=== PATIENT | male | born 1930 | race Caucasian/White ===

== ENCOUNTER 2016-08-14 15:12 | Observation (INO) ==
[2016-08-14 16:14] VITALS: BMI 25.4
[2016-08-14] MEDS ORDERED: PROAIR HFA IH PRN (17:02)
[2016-08-14] MEDS ORDERED: SYMBICORT 160-4.5 MCG INHALER IH PRN (17:02)
[2016-08-14 17:31] LABS: BASOPHILS % (AUTO) 0.2 % (0.0-3.0); EOSINOPHILS # (AUTO) 0.1 K/ul (0.0-0.7); HEMATOCRIT 40.2 % (42.0-52.0); HEMOGLOBIN 13.3 g/dl (14.0-18.0); IMMATURE GRANULOCYTE % (AUTO) 0.3 % (0.0-5.0); MEAN CORPUSCULAR HGB CONC 33.1 (31.8-35.4); MEAN CORPUSCULAR VOLUME 90.5 fl (80.0-94.0); MONOCYTES # (AUTO) 1.1 K/uL (0.4-2.0); NEUTROPHILS # (AUTO) 7.6 K/ul (2.0-6.9); NEUTROPHILS % (AUTO) 77.5; PLATELET COUNT 222 10^3/uL (140-440); RED BLOOD COUNT 4.44 10^6/ul (4.70-6.10)
[2016-08-14 17:45] LABS: ABG BASE EXCESS -3 (-2.0-2.0); ABG HCO3 21.6 (22.0-26.0); ABG PCO2 32.3 mmHg (35-45); ABG PH 7.434 (7.35-7.45); ABG TCO2 23 (22.0-28.0)
[2016-08-14 17:53] LABS: BILIRUBIN,URINE Negative (NEGATIVE); KETONES,URINE Negative (NEGATIVE); LEUKOCYTE ESTERASE ,URINE Trace (NEGATIVE); NITRITE,URINE Negative (NEGATIVE); PH,URINE 5.5 (5-9); PROTEIN,URINE 3+ (NEGATIVE); URINE, BLOOD Trace-lysed (NEGATIVE)
[2016-08-14] MEDS ORDERED: XOPENEX 0.63 MG NEB ONE ×2 (17:54→22:07)
[2016-08-14 17:55] LABS: ALBUMIN 3.4 g/dL (3.4-5.0); ANION GAP 12.8; BILIRUBIN,TOTAL 0.5 mg/dL (0.00-1.20); BUN/CREATININE RATIO 19.54; CREATININE 1.33 mg/dL (0.60-1.10); POTASSIUM 3.8 mmol/L (3.5-5.1); TOTAL PROTEIN 6.8 g/dL (5.8-8.1)
[2016-08-14 17:55] LABS: ADD URINE MICROSCOPIC YES
[2016-08-14] MEDS: XOPENEX 0.63 MG NEB SCH ×2 (18:06→23:44)
[2016-08-14] MEDS ORDERED: XOPENEX 1.25 MG NEB ONE (18:06)
[2016-08-14] MEDS: ROCEPHIN 1 GM in SODIUM CHLORIDE 50 ML IV SCH (18:42)
[2016-08-14] MEDS: MUCINEX PO SCH (20:47)
[2016-08-14] MEDS ORDERED: XOPENEX 0.63 MG NEB SCH (21:00)
[2016-08-14] MEDS ORDERED: CARDIZEM CD PO SCH (21:00)
[2016-08-14] MEDS ORDERED: FLOMAX PO SCH (21:08)
[2016-08-14] MEDS ORDERED: CARDIZEM PO STA (21:12)
[2016-08-14] MEDS ORDERED: FLOMAX PO STA (21:12)
[2016-08-14] MEDS: SOLU-CORTEF 250 MG IVP SCH ×2 (21:29→21:31)
[2016-08-15] MEDS ORDERED: XOPENEX 0.63 MG NEB ONE (01:50)
[2016-08-15] MEDS: XOPENEX 0.63 MG NEB SCH (04:53)
[2016-08-15] MEDS: SOLU-CORTEF 250 MG IVP SCH ×3 (05:02→21:18)
[2016-08-15 05:18] LABS: BASOPHILS % (AUTO) 0.1 % (0.0-3.0); HEMATOCRIT 39.5 % (42.0-52.0); HEMOGLOBIN 13.2 g/dl (14.0-18.0); IMMATURE GRANULOCYTE % (AUTO) 0.5 % (0.0-5.0); LYMPHOCYTES # (AUTO) 0.6 K/uL (0.60-3.4); LYMPHOCYTES % (AUTO) 6.5 (10.0-50.0); MEAN CORPUSCULAR HEMOGLOBIN 29.9 pg (27.0-31.0); MEAN CORPUSCULAR HGB CONC 33.4 (31.8-35.4); MEAN CORPUSCULAR VOLUME 89.6 fl (80.0-94.0); MONOCYTES # (AUTO) 0.2 K/uL (0.4-2.0); MONOCYTES % (AUTO) 2.5 (0-10); NEUTROPHILS # (AUTO) 7.6 K/ul (2.0-6.9); NEUTROPHILS % (AUTO) 90.4; PLATELET COUNT 225 10^3/uL (140-440); RED BLOOD COUNT 4.41 10^6/ul (4.70-6.10)
[2016-08-15 05:43] LABS: ALBUMIN 3.2 g/dL (3.4-5.0); ALBUMIN/GLOBULIN RATIO 1.03; ANION GAP 13.9; BILIRUBIN,TOTAL 0.63 mg/dL (0.00-1.20); BUN/CREATININE RATIO 18.25; CALCIUM 9.1 mg/dL (8.2-10.2); CREATININE 1.26 mg/dL (0.60-1.10); POTASSIUM 3.9 mmol/L (3.5-5.1); TOTAL PROTEIN 6.3 g/dL (5.8-8.1)
--- NOTE | 2016-08-15 07:45 | DI ---
EXAM: PA and lateral views of the chest HISTORY: Cough. COMPARISON: Chest x-ray 03/25/2016 FINDINGS: The cardiomediastinal silhouette is unchanged with stable lead wires. There is no pneumo thorax or pleural effusion. There is no consolidation, nodule or mass. There is minimal small airwa ys thickening in the lower lobes. Lungs are hyperinflated with mild flattening of the diaphragm. Th e osseous structures demonstrate anterior disc osteophyte formation with stable compression deformit y of lower thoracic/upper lumbar spine vertebral body. IMPRESSION: 1. No acute consolidation with small airways thickening in the lower lobes that may represent small airways inflammation versus infection. 2. Findings are consistent with chronic obstructive pulmonary disease. 3. Degenerative disease with no significant change in compression deformity in the lower thoracic/u pper lumbar spine vertebral body.
[2016-08-15] MEDS ORDERED: NON-FORMULARY MEDICATION (Multivitamin [Multi-Vitamin Daily] 1 TAB) PO SCH (09:00)
[2016-08-15] MEDS ORDERED: FLOMAX PO SCH (09:00)
[2016-08-15] MEDS: THEOPHYLLINE ANHYDROUS PO SCH (09:11)
[2016-08-15] MEDS: MULTIVITAMIN PO SCH (09:11)
[2016-08-15] MEDS: ESOMEPRAZOLE MAGNESIUM PO SCH (09:11)
[2016-08-15] MEDS: MUCINEX PO SCH ×2 (09:12→20:55)
[2016-08-15] MEDS: VITAMIN D PO SCH (09:12)
[2016-08-15] MEDS: CARDIZEM CD PO SCH ×2 (09:12→20:54)
[2016-08-15] MEDS: ROCEPHIN 1 GM in SODIUM CHLORIDE 50 ML IV SCH (09:12)
[2016-08-15] MEDS: COPPER PO SCH (09:14)
[2016-08-15] MEDS: [UNRECOGNIZED DRUG - OTHER] PO SCH (09:14)
[2016-08-15] MEDS: PULMICORT 0.5 MG/2 ML NEB SCH ×2 (09:40→19:35)
[2016-08-15] MEDS: XOPENEX 1.25 MG NEB SCH ×2 (11:08→19:36)
[2016-08-15] MEDS: SYMBICORT 160-4.5 MCG INHALER IH SCH (20:54)
[2016-08-16] MEDS: XOPENEX 1.25 MG NEB SCH ×3 (00:06→11:21)
[2016-08-16] MEDS: PULMICORT 0.5 MG/2 ML NEB SCH (04:59)
[2016-08-16] MEDS: ESOMEPRAZOLE MAGNESIUM PO SCH (05:41)
[2016-08-16] MEDS: SOLU-CORTEF 250 MG IVP SCH (05:47)
[2016-08-16 06:10] LABS: BASOPHILS % (AUTO) 0.1 % (0.0-3.0); HEMATOCRIT 39.9 % (42.0-52.0); HEMOGLOBIN 13.4 g/dl (14.0-18.0); IMMATURE GRANULOCYTE % (AUTO) 0.5 % (0.0-5.0); LYMPHOCYTES # (AUTO) 0.8 K/uL (0.60-3.4); LYMPHOCYTES % (AUTO) 7.6 (10.0-50.0); MEAN CORPUSCULAR HEMOGLOBIN 30.1 pg (27.0-31.0); MEAN CORPUSCULAR HGB CONC 33.6 (31.8-35.4); MEAN CORPUSCULAR VOLUME 89.7 fl (80.0-94.0); MONOCYTES # (AUTO) 0.5 K/uL (0.4-2.0); MONOCYTES % (AUTO) 4.9 (0-10); NEUTROPHILS # (AUTO) 9.3 K/ul (2.0-6.9); NEUTROPHILS % (AUTO) 86.9; PLATELET COUNT 246 10^3/uL (140-440); RED BLOOD COUNT 4.45 10^6/ul (4.70-6.10); WHITE BLOOD COUNT 10.72 K/ul (4.2-10.2)
[2016-08-16 06:34] LABS: ALBUMIN 3.4 g/dL (3.4-5.0); ALBUMIN/GLOBULIN RATIO 1.03; ANION GAP 14.7; BILIRUBIN,TOTAL 0.41 mg/dL (0.00-1.20); BUN/CREATININE RATIO 25.21; CALCIUM 9.4 mg/dL (8.2-10.2); CREATININE 1.19 mg/dL (0.60-1.10); POTASSIUM 3.7 mmol/L (3.5-5.1); TOTAL PROTEIN 6.7 g/dL (5.8-8.1)
[2016-08-16] MEDS: THEOPHYLLINE ANHYDROUS PO SCH (08:26)
[2016-08-16] MEDS: MULTIVITAMIN PO SCH (08:26)
[2016-08-16] MEDS: CARDIZEM CD PO SCH (08:27)
[2016-08-16] MEDS: MUCINEX PO SCH (08:27)
[2016-08-16] MEDS: VITAMIN D PO SCH (08:27)
[2016-08-16] MEDS: COPPER PO SCH (08:51)
[2016-08-16] MEDS: [UNRECOGNIZED DRUG - OTHER] PO SCH (08:51)
[2016-08-16] MEDS: ROCEPHIN 1 GM in SODIUM CHLORIDE 50 ML IV SCH (08:55)
[2016-08-16] MEDS: SYMBICORT 160-4.5 MCG INHALER IH SCH (08:55)
[2016-08-16] MEDS: PREDNISONE PO SCH ×3 (08:56→13:08)
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
--- NOTE | 2016-08-16 10:40 | PN ---
DATE OF SERVICE: 08/15/16 SUBJECTIVE: The patient is an 86 year old white male hospitalized with acute bronchitis/ pneumonitis and flue type of symptoms. The patient's condition has improved remarkably. The is in the room. REVIEW OF SYSTEMS: CONSTITUTIONAL: No night sweats. No fatigue, malaise, lethargy. No fever or chills. HEENT: Eyes: No visual changes. No eye pain. No eye discharge. ENT: No runny nose. No epistaxis. No sinus pain. No sore throat. No odynophagia. No congestion. RESPIRATORY: No cough, no congestion. No hemoptysis. CARDIOVASCULAR: No angina symptoms. No CHF symptoms. No atypical chest pain for CAD. No palpitations. No shortness of breath.No PND. No Orthopnea. GASTROINTESTINAL: No abdominal pain. No nausea or vomiting. No diarrhea or constipation. No hematemesis. No hematochezia. GENITOURINARY: No urgency. No frequency. No dysuria. No hematuria. No obstructive symptoms. No discharge. No pain. No significant abnormal bleeding. MUSCULOSKELETAL: No musculoskeletal pain; no joint swelling. NEUROLOGICAL: No headache. No neck pain. No syncope. No seizures. No dizziness. PSYCHIATRIC: Not anxious. No depression. No suicidal thoughts. No homicidal thoughts. SKIN: No rash. No lesions. No wounds. ENDOCRINE: No unexplained weight loss. No weight gain. HEMATOLOGIC/LYMPHATIC: No anemia. No purpura. No petechiae. No prolonged or excessive bleeding. No palpable lymph nodes. PHYSICAL EXAMINATION: GENERAL: The patient is oriented to time, place and person. VITAL SIGNS: Temperature 97, pulse 60, respiratory 20, blood pressure 140/70 and pulse ox 94%. HEENT: Head normocephalic, atraumatic. Eyes: Extraocular muscles are intact. Pupils are equal, round and reactive to light and accommodation. Ears: No lesions. Nose appeared normal. Throat: No exudate or erythema. NECK: Supple. No JVD, no carotid bruit. No lymphadenopathy or thyromegaly. LUNGS: Decreased breath sounds but clear to auscultation. Percussion note normal. Chest symmetrical. HEART: S1, S2, no S3. No murmurs. No cyanosis or clubbing. No ascites. Pulses: Dorsalis pedis and posterior tibial pulses +1 to +2 both sides. ABDOMEN: Soft. Nontender. Bowel sounds active. No CVA tenderness. No mass felt. EXTREMITIES: No edema. Full range of motion of all extremities, equal. NEUROLOGIC: No focal deficit. Cranial nerves II through XII are grossly intact. No headache, no double vision or headache. SKIN: Not dry. Intact. Turgor - normal. LYMPHATIC: No palpable lymph nodes/no lymphedema. MUSCULOSKELETAL: Normal joints with no swelling. Muscle tone is normal. LABS: hgb 13.2, hct 39, WBC 8,400 normal differential, creatinine 1.2, BUN 23, potassium 3.2 and glucose 153. ASSESSMENT: 1. Acute bronchitis 2. Acute Pneumonitis 3. Chronic lungs disease 4. History of bronchial asthma 5. Pacemaker 6. Hypertension PLAN: 1. Continue IV steroids, IV antibiotics, NEBS treatment. 2. The patient's condition has improved remarkably and the patient's is very happy. He is eating good and no wheezing at all. CONDITION: Stable. TIME SPENT: More than 30 minutes. Plan and coordination of the patient's care discussed in the presence of nurseRon TORO
[2016-08-16 11:22] VITALS: BP 151/70; TEMP 97.3
--- NOTE | 2016-08-16 12:45 | CM.DICTOOL ---
ADMISSION: 08/14/16 15:12 DISCHARGE: 2016 DATE OF SERVICE: 08/16/16 FINAL DIAGNOSIS Acute bronchitis Flu syndrome Pneumonitis Hyperglycemia Hypertension COPD Bronchial Asthma Chronic Kidney Disease Paget's Disease GERD S/P Thoracic spine fracture, 2016 S/P rib fracture Total Hip Replacement, 2013 Pacemaker Colonoscopy, 2013 Endoscopy, 2016 Cholecystectomy LAST VITALS Temp Pulse Resp BP Pulse Ox 97.3 F L 74 20 151/70 H 96 08/16/16 10:00 08/16/16 10:00 08/16/16 10:00 08/16/16 10:00 08/16/16 10:00 ACTIVE MEDICATIONS Albuterol Sulfate (Proair Hfa) 2 puff IH Q4H PRN PRN Reason: Cough Budesonide/Formoterol Fumarate (Symbicort 160-4.5 Mcg Inhaler) 2 puff IH BID [facility] Last Admin: 08/16/16 08:55 Dose: 2 puff Cholecalciferol (Vitamin D) 1,000 unit PO QAM [facility] Last Admin: 08/16/16 08:27 Dose: 1,000 unit Diltiazem HCl (Cardizem Cd) 180 mg PO BID [facility] Last Admin: 08/16/16 08:27 Dose: 180 mg Multivitamins (Multivitamin) 1 cap PO DAILY [facility] Last Admin: 08/16/16 08:26 Dose: 1 cap Non-Formulary Medication (Esomeprazole Magnesium [Nexium]) 1 tab PO QDAC [facility] Last Admin: 08/16/16 05:41 Dose: 1 tab Non-Formulary Medication (Theophylline Anhydrous [Theophylline]) 1 tab PO DAILY [facility] Last Admin: 08/16/16 08:26 Dose: 1 tab Non-Formulary Medication (Zinc Mth/Copper/Saw Palm/Gnsg [Prostate Health Formula Sftgel]) 1 cap PO DAILY [facility] Last Admin: 08/16/16 08:51 Dose: Not Given Prednisone (Prednisone) 10 mg PO TIDWM [facility] Last Admin: 08/16/16 10:06 Dose: 10 mg (prescription) Tamsulosin HCl (Flomax) 0.4 mg PO BEDTIME [facility] Last Admin: 08/15/16 20:55 Dose: 0.4 mg Albuterol Nebs every 8 hours Last Admin: ALLERGIES morphine Allergy (Severe, Verified 03/20/16 09:26) "Retricts breathing" alprazolam [From Xanax] Adverse Reaction (Intermediate, Verified 03/20/16 09:26) hallucinations aspirin Adverse Reaction (Mild, Verified 03/20/16 09:26) Abdominal Pain Sulfa (Sulfonamide Antibiotics) Adverse Reaction (Unknown, Verified 08/15/16 07: 48) Unknown celecoxib [From Celebrex] Adverse Reaction (Verified 08/15/16 07:48) Unknown metoprolol [From Toprol XL] Adverse Reaction (Verified 08/15/16 07:48) Unknown prednisone Adverse Reaction (Verified 03/20/16 09:26) "makes me deathly sick" NEW PRESCRIPTIONS: Keflex 500 mg TID for 7 days Prednisone 10 mg TID for 3 days, BID for 3 days, then Daily for 3 days SMOKING: Not applicable DISEASE SPECIFIC EDUCATION: Medications, including steroid use Activity Nebulizer treatments Appointment LAB REVIEW: 08/16/16 05:30 08/16/16 05:30 08/16/16 05:30: WBC 10.72 H, RBC 4.45 L, Hgb 13.4 L, Hct 39.9 L, MCV 89.7, MCH 30.1, MCHC 33.6, RDW Coeff of Elizabeth 13.2, Plt Count 246, Immature Gran % (Auto) 0.5, Neut % (Auto) 86.9, Lymph % (Auto) 7.6 L, Moody % (Auto) 4.9, Eos % (Auto) 0.0, Baso % (Auto) 0.1, Immature Gran # (Auto) 0.1, Neut # 9.3 H, Lymph # 0.8, Moody # 0.5, Eos # 0.0, Baso # 0.0, Sodium 140, Potassium 3.7, Chloride 106, Carbon Dioxide 23, Anion Gap 14.7, BUN 30 H, Creatinine 1.19 H, Estimated GFR ( MDRD) 58.00, BUN/Creatinine Ratio 25.21, Glucose 141 H, Calcium 9.4, Total Bilirubin 0.41, AST 12 L, ALT 13, Alkaline Phosphatase 83, Total Protein 6.7, Albumin 3.4, Globulin 3.3, Albumin/Globulin Ratio 1.03 08/14/16 17:23: Theophylline 11.6 PLAN: Discharge home Diet: Heart Healthy Activity: Gradually resume activity to your tolerance. No changes to your current medications. Continue medications as listed on nursing discharge information. Continue home nebulizer treatments every 8 hours as needed Please Call the office on Saturday to schedule an appointment with Dr. Darnell for next week. Mr. Coronel is alert and oriented x 3. He is ambulatory without use of oxygen or assistive device. He is independent with all activities of daily living. He denies nausea and is tolerating 100% of meals. No rashes, open areas or decubitus ulcers noted. Danilo Darnell MD
--- NOTE | 2016-08-17 09:12 | ECHO2D ---
Date of Exam: 08/16/16 Ordering Physician: CHRISTOPHER HOBSON Reason for Echo: SOB, HYPERTENSION, PACEMAKER, RESPIRATORY FAILURE M-Mode Normal Adult Results LV Dimensions Normal Adult Results AoV Opening excursions >1.6 >1.6 LVEDD-base- 3.5-5.8 3.3 Ao root dimensions 2.0-3.7 4.0 LVESD-base- 3.1-4.6 L. Atrium dimensions 1.9-3.8 4.4 Post. Wall thickness 0.8-1.1 1.3 IV septum (thickness) 0.7-1.2 1.5 Post. Wall excursion 0.72-1.3 NORMAL Septal motion NORMAL Systolic motion R. Ventricular cavity 1.5-2.0 3.0 LVEF 60% 72% Paradoxical septal wall motion NORMAL 2-D : NORMAL LEFT VENTRICULAR CONTRACTILITY--NORMAL VALVES--NO EFFUSION, NO THROMBUS, ENLARGED LEFT ATRIAL CAVITY M-MODE: MV: NORMAL AV: NORMAL TV: NORMAL PV: CHAMBER SIZE: ENLARGED LEFT ATRIAL CAVITY, DILATED AORTIC ROOT WALL MOTION: NORMAL PERICARDIUM: NORMAL INTERPRETATION: 1. MODERATE LEFT VENTRICULAR HYPERTROPHY 2. DILATED LEFT ATRIAL CAVITY, DILATED AORTIC ROOT 3. ENLARGED RIGHT VENTRICULAR CAVITY 4. NORMAL LEFT VENTRICULAR CONTRACTILITY 5. NORMAL VALVES MTDD
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
== END 2016-08-16 13:42 | disposition home or self-care (01) ==
LOC: MEDSURG A 15:12 → INTOOBSV 15:12 → OBSVTOIN 15:12
PROVIDERS: ADMIT Internal Medicine; ATTEND Internal Medicine
DX: J44.0 Chronic obstructive pulmonary disease with (acute) lower respiratory infection (principal); R06.2 Wheezing; J18.9 Pneumonia, unspecified organism; J20.9 Acute bronchitis, unspecified; J11.1 Influenza due to unidentified influenza virus with other respiratory manifestations; I51.7 Cardiomegaly; I10 Essential (primary) hypertension; N18.9 Chronic kidney disease, unspecified; K21.9 Gastro-esophageal reflux disease without esophagitis; R73.9 Hyperglycemia, unspecified; Z95.0 Presence of cardiac pacemaker; Z79.899 Other long term (current) drug therapy
CPT/HCPCS: 36415; 80053; 80198; 81001; 82803; 83880; 85025; 86710; 87040; 87070; 87086; 93005; 93010; 94640; 96365; 96366; 96375; 96376

== ENCOUNTER 2016-09-03 09:00 | Outpatient (RCR) ==
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
--- NOTE | 2016-08-23 11:27 | RS.OPPTDN ---
Subjective Date of Note: 08/23/16 Visit #: 2 Date of Evaluation: 08/21/16 Payer Source: MEDICARE Treatment Diagnosis: Anterior neck pain Current Subjective/complaints:: Patient reports heat and manual therapy seemed to help reduce pain today. Reports pain radiating up to right ear and eye with trigger point release work today. Pain Assessment - Pain Description Pain Location: Anterior neck pain Pain Description: Sharp Pain Description: Only intermittent w/o warning. Current Pain Intensity: 0 at rest - Treatment Modality: Ultrasound Parameters/Method Applied: [id number] at 1.0w/cm2 to the bilateral cervical paraspinals, traps, and focused on right SCM. Patient in sitting. Patient Position: Sitting Interventions - Exercise/Activities/Manual Therapy Exercises/Activities: x5mins Cervical ROM and stretching of SCM with rotation and elevation of chin. Total minutes of Exercise: 5mins Manual Therapy: [id number] manual therapy to the bilateral cervical paraspinals, traps, and right SCM. Myofascial release and trigger point release. Patient in sitting. Total minutes of Manual Therapy: 24mins HOME EXERCISE PROGRAM: Patient was instructed to try using cold packs on his throat intermittently to see if this would help reduce inflammation in that area. He and his verbalized understanding. - Charges Total Direct Minutes: 43mins Total Treatment Time: 45mins Procedures billed for this date of service:: , [facility] Assessment: Patient responds well to treatment. Patient motivated to progress. Patient Education: Education of diagnosis, Body/Joint mechanics, Home Exercise Program, Home Safety, Activity Modification Patient demonstrates compliance with HEP?: Yes Short Term Goals Goal #1: Patient reports a decrease in frequency of anterior neck pain by 25% Goal to be met by: 09/07/16 Progress towards Goal:: Progressing Goal #2: Independent with basic HEP. Goal to be met by: 09/07/16 Progress towards Goal:: Progressing Goal #3: Patient reports 25% improvement in pain with reading. Goal to be met by: 09/07/16 Goal #4: Cervical arom normal pain free. Goal to be met by: 03/01/16 [employer] Goals Goal #1: Patient independent in HEP. Goal to be met by: 09/21/16 Goal #2: Eliminate pain to the anterior neck. Goal to be met by: 09/21/16 Goal #3: Patient reports increased ability to sing. Goal to be met by: 09/21/16 Progress towards goal: Progressing Plan PLAN OF CARE EXPIRES ON:: 09/21/16 ORDER # VISITS AND/OR THROUGH DATE: 09/21/2016 PLAN: Continue Plan of Care
--- NOTE | 2016-08-27 13:23 | RS.OPPTDN ---
Subjective Date of Note: 08/27/16 Visit #: 3 Date of Evaluation: 08/21/16 Payer Source: MEDICARE Treatment Diagnosis: Anterior neck pain Current Subjective/complaints:: Patient and report patient had a flair-up of pain on Saturday and into Saturday. States right neck pain radiated up into head causing headache. Pain Assessment - Pain Description Pain Location: Anterior neck pain Pain Description: Sharp Pain Description: Only intermittent w/o warning. Current Pain Intensity: mild at rest - Treatment Modality: Ultrasound Parameters/Method Applied: [id number] at 1.0w/cm2 to the right cervical paraspinals , SCM, and trap trigger point. Patient Position: Sitting Interventions - Exercise/Activities/Manual Therapy Exercises/Activities: x5mins Assisted with cervical ROM with rotation and lateral flexion. Total minutes of Exercise: 5mins Manual Therapy: [id number] manual therapy to the bilateral cervical paraspinals, traps, and right SCM. Myofascial release and trigger point release. Patient in sitting. Total minutes of Manual Therapy: 15mins HOME EXERCISE PROGRAM: Patient was instructed to try using cold packs on his throat intermittently to see if this would help reduce inflammation in that area. He and his verbalized understanding. - Charges Total Direct Minutes: 30mins Total Treatment Time: 30mins Procedures billed for this date of service:: [place], [place] Assessment: Patient continues to have pain and muscle soreness. Responds well to treatment and reports improvement. Patient Education: Body/Joint mechanics, Home Exercise Program, Activity Modification Patient demonstrates compliance with HEP?: Yes Short Term Goals Goal #1: Patient reports a decrease in frequency of anterior neck pain by 25% Goal to be met by: 09/07/16 Progress towards Goal:: Progressing Goal #2: Independent with basic HEP. Goal to be met by: 09/07/16 Progress towards Goal:: Progressing Goal #3: Patient reports 25% improvement in pain with reading. Goal to be met by: 09/07/16 Goal #4: Cervical arom normal pain free. Goal to be met by: 03/01/16 Longterm Goals Goal #1: Patient independent in HEP. Goal to be met by: 09/21/16 Progress towards goal: Progressing Goal #2: Eliminate pain to the anterior neck. Goal to be met by: 09/21/16 Goal #3: Patient reports increased ability to sing. Goal to be met by: 09/21/16 Progress towards goal: Progressing Plan PLAN OF CARE EXPIRES ON:: 09/21/16 ORDER # VISITS AND/OR THROUGH DATE: 09/21/2016 PLAN: Continue Plan of Care
--- NOTE | 2016-08-29 10:06 | RS.OPPTDN ---
Subjective Date of Note: 08/29/16 Visit #: 4 Date of Evaluation: 08/21/16 Payer Source: MEDICARE Treatment Diagnosis: Anterior neck pain Current Subjective/complaints:: Reports treatment is helping. States he had a mild flair-up after last session, but not as bad a last one. Reports feeling good after treatment today. Pain Assessment - Pain Description Pain Location: Anterior neck pain Pain Description: Sharp Pain Description: Only intermittent w/o warning. Current Pain Intensity: mild at rest - Treatment Modality: Ultrasound Parameters/Method Applied: [id number] at 1.0w/cm2 to the right cervical paraspinals , traps, and SCM. Patient Position: Sitting - Heat/Cryotherapy Treatment: Cryotherapy ([id number] to the right neck/SCM following and MT. ) Interventions - Exercise/Activities/Manual Therapy Exercises/Activities: x3mins Assisted with cervical ROM with rotation and lateral flexion. Total minutes of Exercise: 3mins Manual Therapy: [id number] manual therapy to the bilateral cervical paraspinals, traps, and right SCM. Myofascial release and trigger point release. Patient in sitting. Total minutes of Manual Therapy: 15mins HOME EXERCISE PROGRAM: Patient was instructed to try using cold packs on his throat intermittently to see if this would help reduce inflammation in that area. He and his verbalized understanding. - Charges Total Direct Minutes: 30mins Total Treatment Time: 45mins Procedures billed for this date of service:: , [facility], [facility] Assessment: Patient reports improvement with treatment. Patient Education: Home Exercise Program Patient demonstrates compliance with HEP?: Yes Short Term Goals Goal #1: Patient reports a decrease in frequency of anterior neck pain by 25% Goal to be met by: 09/07/16 Progress towards Goal:: Progressing Goal #2: Independent with basic HEP. Goal to be met by: 09/07/16 Progress towards Goal:: Progressing Goal #3: Patient reports 25% improvement in pain with reading. Goal to be met by: 09/07/16 Goal #4: Cervical arom normal pain free. Goal to be met by: 03/01/16 [facility] Goals Goal #1: Patient independent in HEP. Goal to be met by: 09/21/16 Progress towards goal: Progressing Goal #2: Eliminate pain to the anterior neck. Goal to be met by: 09/21/16 Goal #3: Patient reports increased ability to sing. Goal to be met by: 09/21/16 Progress towards goal: Progressing Plan PLAN OF CARE EXPIRES ON:: 09/21/16 ORDER # VISITS AND/OR THROUGH DATE: 09/21/2016 PLAN: Continue Plan of Care
--- NOTE | 2016-08-31 09:56 | RS.OPPTDN ---
Subjective Date of Note: 08/31/16 Visit #: 5 Date of Evaluation: 08/21/16 Payer Source: MEDICARE Treatment Diagnosis: Anterior neck pain Current Subjective/complaints:: Patient and report another flair-up of throat discomfort and difficulty swallowing and breathing on the day after therapy. Patient asks to have US only and hold manual therapy. Pain Assessment - Pain Description Pain Location: Anterior neck pain Pain Description: Sharp Pain Description: Only intermittent w/o warning. Current Pain Intensity: mild at rest - Treatment Modality: Ultrasound Parameters/Method Applied: [id number] with treatment split between PULSED 1.5w/cm2 x5mins and non thermal at 1.0w/cm2 x5mins to the right lateral neck and along SCM. Patient Position: Sitting - Heat/Cryotherapy Treatment: Cryotherapy ([id number] to the right neck following US. Patient in sitting. ) Interventions - Exercise/Activities/Manual Therapy Exercises/Activities: N/A Manual Therapy: Witheld today HOME EXERCISE PROGRAM: Basic cervical ROM and use of CP several times per day. - Charges Total Direct Minutes: 10mins Total Treatment Time: 25mins Procedures billed for this date of service:: US, CP Assessment: Patient continuing to report flair-ups on the day after treatment. He requests to hold manual therapy today to see if he responds better to US. Short Term Goals Goal #1: Patient reports a decrease in frequency of anterior neck pain by 25% Goal to be met by: 09/07/16 Progress towards Goal:: Progressing Goal #2: Independent with basic HEP. Goal to be met by: 09/07/16 Progress towards Goal:: Progressing Goal #3: Patient reports 25% improvement in pain with reading. Goal to be met by: 09/07/16 Goal #4: Cervical arom normal pain free. Goal to be met by: 03/01/16 [facility] Goals Goal #1: Patient independent in HEP. Goal to be met by: 09/21/16 Progress towards goal: Progressing Goal #2: Eliminate pain to the anterior neck. Goal to be met by: 09/21/16 Goal #3: Patient reports increased ability to sing. Goal to be met by: 09/21/16 Progress towards goal: Progressing Plan PLAN OF CARE EXPIRES ON:: 09/21/16 ORDER # VISITS AND/OR THROUGH DATE: 09/21/2016 PLAN: Continue Plan of Care (Patient scheduled for treatment next week. Will reassess progress with treatment.)
--- NOTE | 2016-09-03 10:05 | RS.OPPTDN ---
Subjective Date of Note: 09/03/16 Visit #: 6 Date of Evaluation: 08/21/16 Payer Source: MEDICARE Treatment Diagnosis: Anterior neck pain Current Subjective/complaints:: Patient reports last treatment seems to have helped. States he would like to continue a few more treatments of US. Patient and both state they would like to speak with our Speech Therapist about treatment options. Pain Assessment - Pain Description Pain Location: Anterior neck pain Pain Description: Sharp Pain Description: Only intermittent w/o warning. Current Pain Intensity: mild at rest - Treatment Modality: Ultrasound Parameters/Method Applied: [id number] with treatment split between 5mins PULSED at 1.2w/cm2 and 5mins at 0.8w/cm2 to the right neck along the SCM. Patient Position: Sitting - Heat/Cryotherapy Treatment: Cryotherapy ([id number] to right neck following US. Patient in sitting. ) Interventions - Exercise/Activities/Manual Therapy Exercises/Activities: N/A Manual Therapy: Witheld today HOME EXERCISE PROGRAM: Basic cervical ROM and use of CP several times per day. - Charges Total Direct Minutes: 10mins Total Treatment Time: 25mins Procedures billed for this date of service:: US, CP Assessment: Patient and feels he is responding to US. Short Term Goals Goal #1: Patient reports a decrease in frequency of anterior neck pain by 25% Goal to be met by: 09/07/16 Progress towards Goal:: Progressing Goal #2: Independent with basic HEP. Goal to be met by: 09/07/16 Progress towards Goal:: Progressing Goal #3: Patient reports 25% improvement in pain with reading. Goal to be met by: 09/07/16 Goal #4: Cervical arom normal pain free. Goal to be met by: 03/01/16 [employer] Goals Goal #1: Patient independent in HEP. Goal to be met by: 09/21/16 Progress towards goal: Progressing Goal #2: Eliminate pain to the anterior neck. Goal to be met by: 09/21/16 Goal #3: Patient reports increased ability to sing. Goal to be met by: 09/21/16 Progress towards goal: Progressing Plan PLAN OF CARE EXPIRES ON:: 09/21/16 ORDER # VISITS AND/OR THROUGH DATE: 09/21/2016 PLAN: Continue Plan of Care (Continue this week and request PAST DUE ACCOUNTS CLERK speak with patient and about treatment options.)
--- NOTE | 2016-09-06 11:00 | RS.OPPTDC ---
Date of Discharge: 09/03/16 Date of Evaluation: 08/21/16 Number of Visits: 6 Treatment Diagnosis: Anterior neck pain Current Complaints/Gains: On today's visit, Mr. Coronel reports feeling like he is starting all over again. Reports increased pain since Saturday. He has a cervical traction machine at home, which he states he will start using again. States his pain today is comparable to his pain level at his initial visit. He feels his has improved, but does not know why his pain has been elevated for the past week. Pain Assessment - Pain Description Pain Location: Anterior neck pain Pain Description: Sharp Pain Description: Only intermittent w/o warning. Current Pain Intensity: mild at rest Functional Outcome Measure - G Codes & Severity Modifier G Codes & Modifier: Body Position - DC Status - CI Source of G Code score: Neck Disability Index Interventions - Exercise/Activities/Manual Therapy Exercises/Activities: N/A Manual Therapy: NA HOME EXERCISE PROGRAM: - - Charges Total Direct Minutes: NA Total Treatment Time: NA Procedures billed for this date of service:: NA Assessment Assessment: Patient's condition was unchanged despite PT intervention. Goals were not met. Short Term Goals Goal #1: Patient reports a decrease in frequency of anterior neck pain by 25% Goal to be met by: 09/07/16 Progress towards Goal:: Progressing Goal #2: Independent with basic HEP. Goal to be met by: 09/07/16 Progress towards Goal:: Progressing Goal #3: Patient reports 25% improvement in pain with reading. Goal to be met by: 09/07/16 Goal #4: Cervical arom normal pain free. Goal to be met by: 03/01/16 [facility] Goals Goal #1: Patient independent in HEP. Goal to be met by: 09/21/16 Progress towards goal: Progressing Goal #2: Eliminate pain to the anterior neck. Goal to be met by: 09/21/16 Goal #3: Patient reports increased ability to sing. Goal to be met by: 09/21/16 Progress towards goal: Progressing Plan Reason for Discharge:: Lack of Progress
== END 2016-09-04 ==
PROVIDERS: ATTEND Internal Medicine
DX: M54.2 Cervicalgia (principal); M62.830 Muscle spasm of back

== ENCOUNTER 2016-11-22 09:47 | Outpatient (CLI) ==
--- NOTE | 2016-11-22 10:34 | DI ---
EXAM: Thoracic spine three view HISTORY: Pain COMPARISON: None TECHNIQUE: Three views thoracic spine were for FINDINGS: There are several moderate compression deformities in the upper thoracic spine and a comp ression deformity in the lower thoracic/upper lumbar spine that appear unchanged from chest radiogra ph 08/14/2016. These appear to be T3, T4, T5 and L1. Moderate multilevel chronic discogenic degener ative disease with intervertebral disc space narrowing and marginal osteophyte formation. There is c ardiac pacer. IMPRESSION: 1. Multilevel compression deformities appear unchanged . 2. Chronic discogenic degenerative disease.
== END 2016-11-22 09:48 | disposition home or self-care (01) ==
LOC: RAD 09:47
PROVIDERS: ATTEND Internal Medicine
DX: M54.6 Pain in thoracic spine (principal); S22.030D Wedge compression fracture of third thoracic vertebra, subsequent encounter for fracture with routine healing; S22.040D Wedge compression fracture of fourth thoracic vertebra, subsequent encounter for fracture with routine healing; S22.050D Wedge compression fracture of T5-T6 vertebra, subsequent encounter for fracture with routine healing

== ENCOUNTER 2017-08-12 08:27 | Outpatient (CLI) ==
--- NOTE | 2017-08-12 11:11 | DI ---
EXAM: Three views of the thoracic spine. History: Follow-up fractures. Comparison: Thoracic spine radiograph 11/22/2016, CT thoracic spine 08/12/2017 Findings: Pacer wires. Atherosclerotic vascular calcifications. No change in the thoracic and uppe r lumbar spine compression deformities. No new acute fractures identified. No subluxation. Mild mu ltilevel degenerative disc space narrowing with a few prominent anterior osteophytes not significantl y changed. Impression: Stable chronic thoracic compression deformities. No new acute fractures identified.
--- NOTE | 2017-08-12 11:36 | CT ---
EXAM: CT of the thoracic spine with and without contrast History: Follow up thoracic spine fractures. Comparison: Thoracic spine radiograph 11/22/2016, thoracic spine CT 03/20/2016 Technique: Multiplanar CT images through the thoracic spine were obtained with and without the admin istration of IV contrast Findings: Emphysema again seen within the visualized lungs. Atherosclerotic vascular calcifications. Calcified granuloma within the spleen. Osteopenia. Since the prior thoracic spine radiograph, no significant interval change in the compress ion deformities at T3, T4 and T5 as well as L1. No new acute fractures identified. No subluxation. Mild multilevel degenerative disc space narrowing. No abnormal contrast enhancement. Impression: Stable chronic compression deformities. No new acute fractures.
--- NOTE | 2017-08-12 11:38 | DI ---
EXAM: Six views of the cervical spine. History: Cervicalgia. Comparison: Cervical spine CT 03/20/2016 Findings: No acute fracture. No prevertebral soft tissue swelling. Predental space is not widened. Severe disc space narrowing again seen at C3-4. There is minimal 2 mm retrolisthesis of C3 on C4 w hich is most likely degenerative in nature. Atherosclerotic vascular calcifications. Pacer device i s seen. Multilevel bilateral bony neural foraminal narrowing secondary to uncovertebral and facet hy pertrophy which is severe on the right at C3-4. Impression: No acute osseous abnormalities. Degenerative changes.
== END 2017-08-12 08:28 | disposition home or self-care (01) ==
LOC: RAD 08:27
PROVIDERS: ATTEND Nurse Practitioner Family
DX: S22.039A Unspecified fracture of third thoracic vertebra, initial encounter for closed fracture (principal); S22.049A Unspecified fracture of fourth thoracic vertebra, initial encounter for closed fracture; S22.059A Unspecified fracture of T5-T6 vertebra, initial encounter for closed fracture; M54.2 Cervicalgia; Z01.818 Encounter for other preprocedural examination
CPT/HCPCS: 36415; 80048

== ENCOUNTER 2017-09-29 13:13 | Inpatient (IN) ==
[2017-09-29 13:17] VITALS: BMI 24.7
[2017-09-29] MEDS ORDERED: SOLU-MEDROL 125 MG IVP STA (13:24)
[2017-09-29] MEDS ORDERED: XOPENEX 1.25 MG NEB STA (13:25)
[2017-09-29] MEDS ORDERED: ROCEPHIN 1 GM in SODIUM CHLORIDE 50 ML IV STA (13:25)
[2017-09-29] MEDS ORDERED: ROCEPHIN ONE (13:40)
--- NOTE | 2017-09-29 14:08 | CT ---
EXAM: CT scan of the chest without contrast HISTORY: Cough. Dyspnea TECHNIQUE: Imaging of the chest was performed without contrast. 5 mm thin axial images and coronal and sagittal reconstructions were provided for interpretation. Comparison 08/14/2016 two-view chest. FINDINGS: No mediastinal masses are seen. The heart is normal size. There is atherosclerotic disea se of the thoracic aorta and coronary arteries. There is no consolidation or infiltrate. Lungs are c lear. Emphysematous changes are seen throughout the lungs. There is no pleural effusion. The patie nt has had previous cholecystectomy. No lytic or blastic lesions are seen within the osseous structu res. Chronic appearing compression deformities are seen throughout the thoracic and lumbar spine. IMPRESSION: No evidence of infiltrate or consolidation seen within the lungs. Pulmonary emphysema. 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
--- NOTE | 2017-09-29 14:17 | ED.PDOC ---
General ED Provider: Dr. TAMIKO EL-ER Chief Complaint: Shortness of Air Stated Complaint: im having trouble breasthing--coughing up green sputum--thick Time Seen by Physician: 13:20 Mode of Arrival: Walk-In Information Source: Patient Exam Limitations: No limitations Primary Care Provider: CHRISTOPHER AGUILAR Nursing and Triage Documentation Reviewed and Agree: Yes Reviewed sepsis parameters & appropriate labs ordered?: Yes System Inflammatory Response Syndrome: Not Applicable Sepsis Protocol: For patient's 13 years and over: Temp is 96.8 and below OR 101 and greater Pulse >90 BPM Resp >20/minute Acutely Altered Mental Status Are patient's symptoms suggestive of a new infection, such as: -Pneumonia -Skin, Soft Tissue -Endocarditis -UTI -Bone, Joint Infection -Implantable Device -Acute Abdominal Infection -Wound Infection -Meningitis -Blood Stream Catheter Infection -Unknown Respiratory Complaint Exam - Respiratory Complaint/Exam Onset/Duration: 3 days Symptoms Are: Still present Timing: Intermittent Initial Severity: Mild Current Severity: Moderate Location: Chest Character: Reports: Productive cough Aggravating: Reports: URI Alleviating: Reports: Bronchodilators Associated Signs and Symptoms: Reports: URI Pseudomonas Risk Factors: Reports: Chronic Lung Disease Status Asthmaticus Risk Factors: Reports: None Home Oxygen Use: No Recent Stress Test: No Recent Echo/LV Function: No Current Antibiotic Use: No Current Asthma Medication Use: No Respiratory Distress: None Inadequate Respiratory Effort: No Dysphagia Present: No Stridor Present: No JVD Present: No Accessory Muscle Use: No Retractions: Not Present Diminished Breath Sounds: No Sinus Tenderness: None Grunting Respirations: No Kussmaul Respirations: No Differential Diagnoses: COPD Exacerbation, Pneumonia, Bronchitis Non-Traumatic Chest Pain Syncope: EKG Performed Review of Systems - Review Of Systems Constitutional: Reports: No symptoms Eyes: Reports: No symptoms Ears, Nose, Mouth, Throat: Reports: No symptoms Respiratory: Reports: Cough, Short of air Cardiac: Reports: No symptoms GI: Reports: No symptoms : Reports: No symptoms Musculoskeletal: Reports: No symptoms Skin: Reports: No symptoms Neurological: Reports: No symptoms Endocrine: Reports: No symptoms Hematologic/Lymphatic: Reports: No symptoms All Other Systems: Reviewed and Negative Past Medical History - Past Medical History Previously Healthy: No Endocrine: Reports: None Cardiovascular: Reports: None Respiratory: Reports: COPD Hematological: Reports: None Gastrointestinal: Reports: None Genitourinary: Reports: None Neuro/Psych: Reports: None Musculoskeletal: Reports: None Cancer: Reports: None - Surgical History General Surgical History: Reports: Cholecystectomy, Pacemaker, Orthopedic - Family History Family History: Reports: Unknown - Social History Smoking Status: Former smoker Hx Substance Use: No Alcohol Screening: None - Immunizations Tetanus Shot up to Date: Yes Physical Exam - Physical Exam Appearance: Well-appearing, No pain distress, Well-nourished Eyes: ISMAEL, EOMI, Conjunctiva clear ENT: Ears normal Neck: Supple Respiratory: Rhonchi, Wheezes Cardiovascular: RRR, Pulses normal, No rub, No murmur GI/: Soft, Nontender, No masses, Bowel sounds normal, No Organomegaly Musculoskeletal: Normal strength, ROM intact, No edema, No calf tenderness Skin: Warm, Dry, Normal color Neurological: Sensation intact, Motor intact, Reflexes intact, Cranial nerves intact, Alert, Oriented Psychiatric: Affect appropriate, Mood appropriate Interpretation - Radiology Interpretation Radiology Interpretation By: Radiologist Radiology Results: Negative Exam Interpreted: CT Scan - EKG Interpretation Time of EKG #1: 14:17 Rate: Normal Rhythm: Sinus Ectopy: None P[place]: NL ST Segment: Normal Interpretation: atrial fib Re-Evaluation - Re-Evaluation Time of Re-Evaluation: 14:18 Status: Improved Vital Signs Stable: Yes Pain Level: o Appearance: NAD Lungs: Clear Skin: Warm and Dry Neuro: Alert and Oriented X3 CV: RRR Physician Notification - Case Discussed Physician Notified: dr aguilar Time of Notification: 14:20 Critical Care Note - Critical Care Note Total Time (mins): 0 Course - Course Hematology/Chemistry: 09/29/17 13:42 09/29/17 13:42 Orders, Labs, Meds: Lab Review 09/29/17 09/29/17 09/29/17 13:23 13:42 13:42 WBC 8.01 RBC 4.45 L Hgb 14.1 Hct 41.2 L MCV 92.6 MCH 31.7 H MCHC 34.2 RDW Coeff of Elizabeth 12.9 Plt Count 255 Immature Gran % (Auto) 0.1 Neut % (Auto) 65.4 Lymph % (Auto) 18.1 [place] % (Auto) 9.1 Eos % (Auto) 6.6 Baso % (Auto) 0.7 Immature Gran # (Auto) 0.0 Neut # 5.2 Lymph # 1.5 [place] # 0.7 Eos # 0.5 Baso # 0.1 Puncture Site Rr O2 Saturation 96.0 ABG pH 7.436 ABG pCO2 36.7 ABG pO2 81.0 L ABG HCO3 24.7 ABG Total CO2 26 ABG Base Excess 1 [place] Test + FiO2 % 21.0 Sodium 139 Potassium 3.8 Chloride 103 Carbon Dioxide 25 Anion Gap 14.8 BUN 26 H Creatinine 1.44 H Estimated GFR (MDRD) 46.00 BUN/Creatinine Ratio 18.05 Glucose 104 Calcium 9.2 Total Bilirubin 0.7 AST 20 ALT 13 Alkaline Phosphatase 85 Total Protein 6.7 Albumin 3.3 L Globulin 3.4 Albumin/Globulin Ratio 0.97 Influenza A (Rapid) Influenza B (Rapid) 09/29/17 13:42 WBC RBC Hgb Hct MCV MCH MCHC RDW Coeff of Elizabeth Plt Count Immature Gran % (Auto) Neut % (Auto) Lymph % (Auto) [place] % (Auto) Eos % (Auto) Baso % (Auto) Immature Gran # (Auto) Neut # Lymph # [place] # Eos # Baso # Puncture Site O2 Saturation ABG pH ABG pCO2 ABG pO2 ABG HCO3 ABG Total CO2 ABG Base Excess [place] Test FiO2 % Sodium Potassium Chloride Carbon Dioxide Anion Gap BUN Creatinine Estimated GFR (MDRD) BUN/Creatinine Ratio Glucose Calcium Total Bilirubin AST ALT Alkaline Phosphatase Total Protein Albumin Globulin Albumin/Globulin Ratio Influenza A (Rapid) Negative by naat Influenza B (Rapid) Negative by naat Orders Category Date Time Status ABG DRAW REQUEST Stat CARDIO 09/29/17 13:23 Ordered EKG-(ED ONLY) Stat CARDIO 09/29/17 13:23 Ordered NEBULIZER TREATMENT Stat CARDIO 09/29/17 13:25 Ordered Bilingual Student Tutor [ED LABORATORY TECHNICAL SPECIALIST APPLIED] .ONCE EMERGENCY 09/29/17 13:24 Active ED IV/MEDIPORT/POWERPORT .ONCE EMERGENCY 09/29/17 13:24 Active ABG Stat LAB 09/29/17 13:23 Completed BLOOD CULTURE (ED ONLY) Stat LAB 09/29/17 13:42 Received CBC W/ AUTO DIFF Stat LAB 09/29/17 13:42 Completed COMPREHENSIVE METABOLIC PANEL Stat LAB 09/29/17 13:42 Completed FLU A/B MOLECULAR Stat LAB 09/29/17 13:42 Completed THEOPHYLLINE Stat LAB 09/29/17 14:14 Ordered 0.9 % Sodium Chloride [Saline Flush] MEDS 09/29/17 13:24 Ordered 1 syr IVF PRN PRN Ceftriaxone Sodium [Rocephin] MEDS 09/29/17 13:40 Discontinued 1 gm .ROUTE .STK-MED ONE Ceftriaxone Sodium [Rocephin] 1 gm MEDS 09/29/17 13:25 Discontinued 0.9 % Sodium Chloride [Sodium Chloride] 50 ml IV ONCE Levalbuterol HCl [Xopenex 1.25 mg] MEDS 09/29/17 13:25 Discontinued 1 vial NEB ONCE STA Methylprednisolone Sod Succ/Pf [Solu-Medrol 125 mg] MEDS 09/29/17 13:24 Discontinued 125 [address] IVP ONCE STA CT CHEST W/O CONTRAST Stat RADS 09/29/17 13:25 Completed Medications Generic Name Dose Route Start Last Admin Trade Name Freq PRN Reason Stop Dose Admin Sodium Chloride 1 syr 09/29/17 13:24 Saline Flush IVF PRN PRN To flush IV Discontinued Medications Generic Name Dose Route Start Last Admin Trade Name Freq PRN Reason Stop Dose Admin Ceftriaxone Sodium 1 gm/ 50 mls @ 75 mls/hr 09/29/17 13:25 09/29/17 13:51 Sodium Chloride IV 09/29/17 14:04 75 mls/hr ONCE STA Administration Levalbuterol HCl 1 vial 09/29/17 13:25 09/29/17 13:46 Xopenex 1.25 Mg NEB 09/29/17 13:26 1 vial ONCE STA Administration Methylprednisolone Sodium Succinate 125 mg 09/29/17 13:24 09/29/17 13:51 Solu-Medrol 125 Mg IVP 09/29/17 13:25 125 mg ONCE STA Administration Vital Signs: Temp Pulse Resp BP Pulse Ox 09/29/17 13:15 98.6 F 74 20 137/77 94 L Departure - Departure Time of Disposition: 14:21 Disposition: ADMITTED INPATIENT Discharge Problem: COPD exacerbation Instructions: COPD (Chronic Obstructive Pulmonary Disease) (ED) Condition: Fair Pt referred to PMD for follow-up: Yes IPMP verified?: No Allergies/Adverse Reactions: Allergies morphine Allergy (Severe, Unverified 09/29/17 13:14) "Retricts breathing" alprazolam [From Xanax] Adverse Reaction (Intermediate, Unverified 09/29/17 13: 14) hallucinations Hallucinations aspirin Adverse Reaction (Mild, Unverified 09/29/17 13:14) Abdominal Pain Sulfa (Sulfonamide Antibiotics) Adverse Reaction (Unknown, Unverified 09/29/17 13:14) Unknown celecoxib [From Celebrex] Adverse Reaction (Unverified 09/29/17 13:14) Unknown metoprolol [From Toprol XL] Adverse Reaction (Unverified 09/29/17 13:14) Unknown Home Medications: Ambulatory Orders Esomeprazole Magnesium [Nexium] 1 tab PO DAILY 08/07/13 Multivitamin [Multi-Vitamin Daily] 1 tab PO DAILY 08/07/13 Tamsulosin HCl [Flomax] 1 tab PO BEDTIME 08/07/13 Theophylline Anhydrous [Theophylline] 1 tab PO DAILY 08/07/13 Zinc Mth/Copper/Saw Palm/Gnsg [Prostate Health Formula Sftgel] 1 cap PO DAILY Albuterol Sulfate 0.083% Neb [Albuterol 0.083% Neb] 1 vial NEB RTQ8H PRN Albuterol Sulfate [Proair Hfa] 2 puff IH Q4H PRN 03/20/16 Cholecalciferol (Vitamin D3) [Vitamin D3] 1,000 unit PO QAM 03/27/16 Budesonide/Formoterol Fumarate [Symbicort 160-4.5 Mcg Inhaler] 2 inh INH PRN PRN 08/14/16 Apixaban [Eliquis] 5 mg PO BID 09/29/17 Sotalol HCl [Sotalol] 80 mg PO BID 09/29/17 Disposition Discussed With: Patient, Family
[2017-09-29] MEDS ORDERED: TYLENOL PO PRN (14:28)
[2017-09-29] MEDS ORDERED: SODIUM CHLORIDE 1,000 ML IV SCH (14:30)
[2017-09-29] MEDS ORDERED: XOPENEX 0.63 MG NEB SCH (15:00)
[2017-09-29] MEDS: SOLU-MEDROL 40 MG IVP SCH ×2 (15:09→21:38)
[2017-09-29] MEDS: XOPENEX 0.63 MG NEB SCH ×2 (17:06→22:46)
[2017-09-29] MEDS ORDERED: FLOMAX PO SCH (21:00)
[2017-09-29] MEDS: ELIQUIS PO SCH (21:38)
[2017-09-29] MEDS: BETAPACE PO SCH (21:38)
[2017-09-30] MEDS: XOPENEX 0.63 MG NEB SCH ×3 (05:05→17:00)
[2017-09-30] MEDS: SYMBICORT 160-4.5 MCG INHALER IH SCH ×3 (07:30→21:09)
[2017-09-30] MEDS ORDERED: THEOPHYLLINE ANHYDROUS PO SCH (09:00)
[2017-09-30] MEDS ORDERED: NON-FORMULARY MEDICATION (Cholecalciferol (Vitamin D3) [Vitamin D3] 2,000 UNIT) PO SCH (09:00)
[2017-09-30] MEDS ORDERED: NON-FORMULARY MEDICATION (Multivitamin [Multi-Vitamin Daily] 1 TAB) PO SCH (09:00)
[2017-09-30] MEDS ORDERED: NON-FORMULARY MEDICATION (Cholecalciferol (Vitamin D3) [Vitamin D3] 1,000 UNIT) PO SCH (09:00)
[2017-09-30] MEDS ORDERED: ESOMEPRAZOLE MAGNESIUM PO SCH (09:00)
[2017-09-30] MEDS: ELIQUIS PO SCH ×2 (10:25→21:09)
[2017-09-30] MEDS: FLOMAX PO SCH (10:25)
[2017-09-30] MEDS: BETAPACE PO SCH ×2 (10:25→21:09)
[2017-09-30] MEDS: MULTIVITAMIN TABLET PO SCH (10:26)
[2017-09-30] MEDS: VITAMIN D PO SCH (10:26)
[2017-09-30] MEDS: SOLU-MEDROL 40 MG IVP SCH ×3 (10:31→21:09)
[2017-09-30] MEDS: ROCEPHIN 1 GM in SODIUM CHLORIDE 50 ML IV SCH (10:32)
[2017-09-30] MEDS: THEOPHYLLINE ER 24HR PO SCH (11:54)
[2017-09-30] MEDS ORDERED: THEOPHYLLINE ER 24HR PO SCH (12:00)
[2017-10-01] MEDS: XOPENEX 0.63 MG NEB SCH ×3 (00:35→11:11)
[2017-10-01] MEDS ORDERED: PROTONIX PO SCH (06:30)
[2017-10-01] MEDS: SYMBICORT 160-4.5 MCG INHALER IH SCH (09:15)
[2017-10-01] MEDS: ROCEPHIN 1 GM in SODIUM CHLORIDE 50 ML IV SCH (09:15)
[2017-10-01] MEDS: SOLU-MEDROL 40 MG IVP SCH (09:18)
[2017-10-01] MEDS: FLOMAX PO SCH (09:21)
[2017-10-01] MEDS: ELIQUIS PO SCH (09:21)
[2017-10-01] MEDS: MULTIVITAMIN TABLET PO SCH (09:21)
[2017-10-01] MEDS: BETAPACE PO SCH (09:22)
[2017-10-01] MEDS: VITAMIN D PO SCH (09:22)
[2017-10-01] MEDS: THEOPHYLLINE ER 24HR PO SCH (09:22)
[2017-10-01 10:21] VITALS: BP 142/75; TEMP 97.5
--- NOTE | 2017-10-01 11:39 | CM.DICTOOL ---
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, AORTIC ROOT 08/2016 LAST VITALS Temp Pulse Resp BP Pulse Ox 97.5 F L 70 20 142/75 H 96 10/01/17 10:00 10/01/17 10:00 10/01/17 10:00 10/01/17 10:10/01/17 10:00 ACTIVE HOME MEDICATIONS Apixaban (Eliquis) 5 mg PO BID [facility] Last Admin: 10/01/17 09:21 Dose: 5 mg Budesonide/Formoterol Fumarate (Symbicort 160-4.5 Mcg Inhaler) 2 puff IH BID [facility] Last Admin: 10/01/17 09:15 Dose: 2 puff Cholecalciferol (Vitamin D) 2,000 unit PO DAILY [facility] Last Admin: 10/01/17 09:22 Dose: 2,000 unit Albuterol Sulfate 0.083% Neb 1 vial Q8H PRN Last Admin: Multivitamins (Multivitamin Tablet) 1 tab PO DAILY [facility] Last Admin: 10/01/17 09:21 Dose: 1 tab Esomeprazole Magnesium (Nexium) 40 mg PO QDAC [facility] Last Admin: Sotalol HCl (Betapace) 80 mg PO BID [facility] Last Admin: 10/01/17 09:22 Dose: 80 mg Tamsulosin HCl (Flomax) 0.4 mg PO DAILY [facility] Last Admin: 10/01/17 09:21 Dose: 0.4 mg Theophylline (Theophylline Er 24hr) 400 mg PO DAILY [facility] Last Admin: 10/01/17 09:22 Dose: 400 mg Albuterol Sulfate (Proair HFA) 2 puff IH Q4H PRN Last Admin: Prostate Health Formula 1 cap Daily Last Admin: ALLERGIES morphine Allergy (Severe, Unverified 09/29/17 13:14) "Retricts breathing" alprazolam [From Xanax] Adverse Reaction (Intermediate, Unverified 09/29/17 13: 14) hallucinations aspirin Adverse Reaction (Mild, Unverified 09/29/17 13:14) Abdominal Pain Sulfa (Sulfonamide Antibiotics) Adverse Reaction (Unknown, Unverified 09/29/17 13:14) Unknown celecoxib [From Celebrex] Adverse Reaction (Unverified 09/29/17 13:14) Unknown metoprolol [From Toprol XL] Adverse Reaction (Unverified 09/29/17 13:14) Unknown NEW PRESCRIPTIONS: Keflex 500 mg BID for 5 days Prednisone 10 mg BID for 5 days SMOKING: Not Applicable DISEASE SPECIFIC EDUCATION: COPD Prescriptions Steroid use and risk of GI irritation Nebulizer treatments Appointment LAB REVIEW: 10/01/17 05:10 10/01/17 05:10 10/01/17 05:10: Sodium 138, Potassium 4.3, Chloride 105, Carbon Dioxide 23, Anion Gap 14.3, BUN 30 H, Creatinine 1.12 H, Estimated GFR (MDRD) 62.00, BUN/ Creatinine Ratio 26.78, Glucose 148 H, Calcium 9.0, Total Bilirubin 0.3, AST 13 L, ALT 13, Alkaline Phosphatase 70, Total Protein 5.8, Albumin 3.0 L, Globulin 2.8, Albumin/Globulin Ratio 1.07 10/01/17 05:10: WBC 14.18 H D, RBC 4.18 L, Hgb 13.1 L, Hct 37.8 L, MCV 90.4, MCH 31.3 H, MCHC 34.7, RDW Coeff of Elizabeth 12.6, Plt Count 264, Immature Gran % ( Auto) 0.6, Neut % (Auto) 90.1, Lymph % (Auto) 7.1 L, [place] % (Auto) 2.1, Eos % ( Auto) 0.0, Baso % (Auto) 0.1, Immature Gran # (Auto) 0.1, Neut # 12.8 H, Lymph # 1.0, [place] # 0.3 L, Eos # 0.0, Baso # 0.0 PLAN: Discharge home Diet: Regular diet as tolerated Activity: Gradually resume as tolerated Continue home nebulizer treatments 3 times a day as needed Continue medications as listed on nursing discharge information sheet An appointment is scheduled with Dr. Darnell on October 07, 2017 at 10 am Mr. Coronel is alert and oriented x 3. He is independent with Activities of Daily Living and is ambulatory without use of assistive device or staff assistance. He denies pain. He reports he is short of air at times with exertion, but is much improved from admission. He has not required the use of oxygen during his stay with oxygen saturations of 93-98%. He has been afebrile during his admission. He denies abdominal pain or nausea. Meal intakes are 100% . Skin is intact and free of decubitus ulcers, rashes or abrasions. Danilo Darnell MD Sheryl Leahy APRN
--- NOTE | 2017-10-01 14:05 | DS ---
DATE OF SERVICE: 10/01/17 FINAL DIAGNOSIS: 1. COPD exacerbation 2. Bronchial asthma 3. Atrial fibrillation 4. Cardioversion, 09/27/17 5. Hypertension 6. Pacemaker insertion, 05/2012 7. GERD 8. DDD C-Spine 9. Previous smoker 10.Melanoma, left ear 11.Inguinal hernia repair, time three 12.Cholecystectomy, 09/16 13.Right hip replacement, 09/16 14.LVH with LVEF 72% 15.Dilated left atrial cavity, aortic root 08/2016 LAST VITALS: Temperature 97.5, pulse 70, respiratory rate 20, blood pressure 142/75 and pulse ox 96%. DISCHARGE INSTRUCTIONS: Discharge home. Continue home nebulizer treatments three times a day as needed. Continue medications as listed on nursing discharge information sheet. An appointment is scheduled with Dr. Darnell on October at 10am. MEDICATIONS AT DISCHARGE: Eliquis 5mg PO twice a day Symbicort 160-4.5 two puffs IH twice a day Vitamin D 2,000 unit PO daily Multivitamin one tablet PO daily Albuterol 0.083% NEB Nexium 40mg PO QDAC Betapace 80mg PO twice a day Flomax 0.4mg PO daily Theophylline ER 24 hour 400mg PO daily Proair HFA two puffs IH Q 4 hours PRN Prostate Health Formula one cap daily. ALLERGIES: Morphine Alprazolam Aspirin Sulfa Celecoxib Metoprolol NEW PRESCRIPTIONS: Keflex 500mg twice a day for 5 days Prednisone 10mg twice a day for 5 days. DIET INSTRUCTIONS: Regular diet as tolerated ACTIVITY: Gradually resume as tolerated. SMOKING: N/A DISEASE SPECIFIC EDUCATION: COPD Prescriptions Steroid use and risk of GI irritation Nebulizer treatments. Appointment HOSPITAL COURSE: 87 year old white male hospitalized with acute asthmatic bronchitis. The patient has chronic bronchial asthma. The patient was treated with IV steroids, antibiotics and NEBS treatment. The patient condition improved remarkably. Within couple of days he was not wheezing like he came in with. He is up and about. He was discharged home in stable condition to be followed as an outpatient. The patient had recent cardioversion. Seems like he has regular rhythm with regular RR waves, difficult to distinguish presents of P wave but in any case it doesn't seem to be in atrial fibrillation. The patient is being followed by skin washer in one of the [facility]. Side effects of Prednisone including avascular necrosis of the femoral heads, osteoporosis, cataracts all discussed. TIME SPENT: More than 60 minutes. MTDD
--- NOTE | 2017-10-01 14:06 | PN ---
09/29/17: Level 5 09/30/17: Intermediate 10/01/17: D as in discharge MTDD
--- NOTE | 2017-10-01 14:11 | PN ---
DATE OF SERVICE: 10/01/17 SUBJECTIVE: 87 year old white male hospitalized with acute bronchitis and chronic lung disease. REVIEW OF SYSTEMS: CONSTITUTIONAL: No night sweats. No fatigue, malaise, lethargy. No fever or chills. HEENT: Eyes: No visual changes. No eye pain. No eye discharge. ENT: No runny nose. No epistaxis. No sinus pain. No sore throat. No odynophagia. No congestion. RESPIRATORY: Practically no cough, mild mucosa product comes out when he coughs. No hemoptysis. No shortness of breath. CARDIOVASCULAR: No angina symptoms. No CHF symptoms. No atypical chest pain for CAD. No palpitations. No orthopnea. GASTROINTESTINAL: No abdominal pain. No nausea or vomiting. No diarrhea or constipation. No hematemesis. No hematochezia. GENITOURINARY: No urgency. No frequency. No dysuria. No hematuria. No obstructive symptoms. No discharge. No pain. No significant abnormal bleeding. MUSCULOSKELETAL: No musculoskeletal pain; no joint swelling. NEUROLOGICAL: No headache. No neck pain. No syncope. No seizures. No dizziness. PSYCHIATRIC: Not anxious. No depression. No suicidal thoughts. No homicidal thoughts. SKIN: No rash. No lesions. No wounds. ENDOCRINE: No unexplained weight loss. No weight gain. HEMATOLOGIC/LYMPHATIC: No anemia. No purpura. No petechiae. No prolonged or excessive bleeding. No palpable lymph nodes. PHYSICAL EXAMINATION: GENERAL: The patient is oriented to time, place and person. VITAL SIGNS: Temperature 98, pulse 73, respiratory rate 14, blood pressure 160/ 90 and pulse ox 95%. HEENT: Head normocephalic, atraumatic. Eyes: Extraocular muscles are intact. Pupils are equal, round and reactive to light and accommodation. Ears: No lesions. Nose appeared normal. Throat: No exudate or erythema. NECK: Supple. No JVD, no carotid bruit. No lymphadenopathy or thyromegaly. LUNGS: Decreased breath sounds but clear to auscultation. Percussion note normal. Chest symmetrical. HEART: S1, S2, no S3. No murmurs. No cyanosis or clubbing. No ascites. Pulses: Dorsalis pedis and posterior tibial pulses +1 to +2 both sides. ABDOMEN: Soft. Nontender. Bowel sounds active. No CVA tenderness. No mass felt. EXTREMITIES: No edema. Full range of motion of all extremities, equal. NEUROLOGIC: No focal deficit. Cranial nerves II through XII are grossly intact. No headache, no double vision or headache. SKIN: Not dry. Intact. Turgor - normal. LYMPHATIC: No palpable lymph nodes/no lymphedema. MUSCULOSKELETAL: Normal joints with no swelling. Muscle tone is normal. LABS: Telemetry shows the rhythm which is difficult to interpret but doesn't look like atrial fibrillation. ASSESSMENT: 1. Acute asthmatic bronchitis seems to have resolved PLAN: 1. Discharge the patient home. 2. Keflex and Prednisone 3. Continue the NEBS treatment The is in the room. CONDITION: Stable. TIME SPENT: More than 30 minutes. Plan and coordination of the patient's care discussed in the presence of nurse. CORTEZ
--- NOTE | 2017-10-01 14:19 | PN ---
DATE OF SERVICE: 09/30/17 SUBJECTIVE: 87 year old white male hospitalized with acute asthmatic bronchitis. The patient 's condition has improved. He is not coughing up that much of greenish sputum like he did yesterday. He is not wheezing. REVIEW OF SYSTEMS: CONSTITUTIONAL: No night sweats. No fatigue, malaise, lethargy. No fever or chills. HEENT: Eyes: No visual changes. No eye pain. No eye discharge. ENT: No runny nose. No epistaxis. No sinus pain. No sore throat. No odynophagia. No congestion. RESPIRATORY: Mild cough, no congestion. No hemoptysis. No shortness of breath. CARDIOVASCULAR: No angina symptoms. No CHF symptoms. No atypical chest pain for CAD. No palpitations. No orthopnea. GASTROINTESTINAL: No abdominal pain. No nausea or vomiting. No diarrhea or constipation. No hematemesis. No hematochezia. GENITOURINARY: No urgency. No frequency. No dysuria. No hematuria. No obstructive symptoms. No discharge. No pain. No significant abnormal bleeding. MUSCULOSKELETAL: No musculoskeletal pain; no joint swelling. NEUROLOGICAL: No headache. No neck pain. No syncope. No seizures. No dizziness. PSYCHIATRIC: Not anxious. No depression. No suicidal thoughts. No homicidal thoughts. SKIN: No rash. No lesions. No wounds. ENDOCRINE: No unexplained weight loss. No weight gain. HEMATOLOGIC/LYMPHATIC: No anemia. No purpura. No petechiae. No prolonged or excessive bleeding. No palpable lymph nodes. PHYSICAL EXAMINATION: VITAL SIGNS: Temperature 97.7, pulse 70, respiratory rate 14, blood pressure 150/90 and pulse ox 95%. HEENT: Head normocephalic, atraumatic. Eyes: Extraocular muscles are intact. Pupils are equal, round and reactive to light and accommodation. Ears: No lesions. Nose appeared normal. Throat: No exudate or erythema. NECK: Supple. No JVD, no carotid bruit. No lymphadenopathy or thyromegaly. LUNGS: Decreased breath sounds. Clear to auscultation. Percussion note normal. Chest symmetrical. HEART: S1, S2, no S3. No murmurs. No cyanosis or clubbing. No ascites. Pulses: Dorsalis pedis and posterior tibial pulses +1 to +2 both sides. ABDOMEN: Soft. Nontender. Bowel sounds active. No CVA tenderness. No mass felt. EXTREMITIES: No edema. Full range of motion of all extremities, equal. NEUROLOGIC: No focal deficit. Cranial nerves II through XII are grossly intact. No headache, no double vision or headache. SKIN: Not dry. Intact. Turgor - normal. LYMPHATIC: No palpable lymph nodes/no lymphedema. MUSCULOSKELETAL: Normal joints with no swelling. Muscle tone is normal. LABS: EKG looks like pacemaker rhythm; the patient is feeling better with heart rate of 70. I don't see any evidence of atrial fibrillation but it is very difficult with the pacemaker working. ASSESSMENT: 1. Acute asthmatic bronchitis, resolving PLAN: 1. Continue antibiotics, steroids and NEBS treatment 2. Continue to monitor the patient rhythm. 3. Discontinue IV fluids CONDITION: Stable. TIME SPENT: More than 30 minutes. Plan and coordination of the patient's care discussed in the presence of nurse. CORTEZ
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
--- NOTE | 2017-10-02 10:52 | HOLTER ---
PATIENT INFORMATION AND COMMENTS Attending Physician: CHRISTOPHER HOBSON Indications: IRREGULAR HEART RATE, SHORT OF AIR, PACEMAKER _ Patient Medications: NEXIUM, THEOPHYLLINE, FLOMAX, PROSTATE HEALTH FORMULA, MULTI VIT, PROAIR, ALBUTEROL, VIT D3, SYMBICORT, SOTALOL, ELIQUIS, SOLUMEDROL, ROCEPHIN, XOPENEX _ Pre-procedure Summary: Protocol: Standard Heart Rate Started: 09/30/17943 Minimum: 63 Weight: 172 Ended: 10/01/17 09 Maximum: 116 Height: 5'10" Duration: 23 HRS 48 MIN Average: 73 _ INTERPRETATIONS/OBSERVATIONS: 1. BASIC RHYTHM: PACEMAKER WITH INTERMITTENT SINUS 2. INFREQUENT PVC'S NOTED 3. NO ST-T WAVE CHANGES FROM BASELINE 4. ACTIVITY LOG NOT AVAILABLE MTDD
== END 2017-10-01 12:35 | disposition home or self-care (01) | DRG 192 ==
LOC: ED 13:13 → MEDSURG A 14:45
PROVIDERS: ADMIT Internal Medicine; ATTEND Internal Medicine
DX: J44.1 Chronic obstructive pulmonary disease with (acute) exacerbation (principal); I48.91 Unspecified atrial fibrillation; I10 Essential (primary) hypertension; I51.7 Cardiomegaly; I77.819 Aortic ectasia, unspecified site; K21.9 Gastro-esophageal reflux disease without esophagitis; R06.02 Shortness of breath; M50.30 Other cervical disc degeneration, unspecified cervical region; Z95.0 Presence of cardiac pacemaker; Z79.01 Long term (current) use of anticoagulants; Z87.891 Personal history of nicotine dependence; Z98.890 Other specified postprocedural states; Z90.49 Acquired absence of other specified parts of digestive tract
CPT/HCPCS: 36415; 80053; 80198; 82803; 85025; 87040; 87070; 87081; 87502; 93005; 93010; 93227; 94640; 96375; 97802; 99223; 99232; 99239; 99285

== ENCOUNTER 2017-11-02 18:45 | Inpatient (IN) ==
[2017-11-02 18:49] VITALS: BMI 24.0
--- NOTE | 2017-11-02 19:15 | ED.PDOC ---
General ED Provider: Dr. MARGARITA RAZO Chief Complaint: Arrhythmia Stated Complaint: Patient comes to the ER with palpitation and dizziness all day. Took two tabs of betapace yesterday morning instead of one, skipped last nights dose but took his regular one tab this morning. Denies any chest pain. Patient was cardioverted 3 weeks ago at [facility] by Dr. Everett. Time Seen by Physician: 19:13 Information Source: Patient Primary Care Provider: CHRISTOPHER HOBOSN Nursing and Triage Documentation Reviewed and Agree: Yes Reviewed sepsis parameters & appropriate labs ordered?: No System Inflammatory Response Syndrome: Not Applicable Sepsis Protocol: For patient's 13 years and over: Temp is 96.8 and below OR 101 and greater Pulse >90 BPM Resp >20/minute Acutely Altered Mental Status Are patient's symptoms suggestive of a new infection, such as: -Pneumonia -Skin, Soft Tissue -Endocarditis -UTI -Bone, Joint Infection -Implantable Device -Acute Abdominal Infection -Wound Infection -Meningitis -Blood Stream Catheter Infection -Unknown System Inflammatory Response Syndrome: Not Applicable Cardiovascular Complaint Exam - Palpitations Complaint/Exam Onset/Duration: 1 day Symptoms Are: Still present Timing: Intermittent Initial Severity: Moderate Current Severity: Mild Character: Reports: Fast, Irregular Alleviating: Reports: None Associated Signs and Symptoms: Reports: Lightheadedness, Dizziness, Nausea. Denies: Chest pain, Shortness of breath, Diaphoresis, Vomiting Related History: Similar episode Related Surgical History: Reports: Pacemaker Cardiac Risk Factors: Reports: Hypertension Pulmonary Embolism Risk Factors: Reports: None Atrial Fibrillation Risk Factors: Reports: COPD Thyroid Exam: Normal Differential Diagnoses: COPD, Paroxysmal SVT Quality Indicators for AMI: EKG in 10min. Review of Systems - Review Of Systems Constitutional: Reports: Chills, Fever Eyes: Reports: No symptoms Ears, Nose, Mouth, Throat: Reports: No symptoms Respiratory: Reports: Cough (clear production ) Cardiac: Reports: Irregular heart rate, Lightheadedness, Palpitations GI: Reports: No symptoms : Reports: No symptoms Musculoskeletal: Reports: No symptoms Skin: Reports: No symptoms Neurological: Reports: Anxiety Hematologic/Lymphatic: Reports: No symptoms All Other Systems: Reviewed and Negative Past Medical History - Past Medical History Previously Healthy: No Endocrine: Reports: None Cardiovascular: Reports: A-Fib Respiratory: Reports: COPD Hematological: Reports: None Gastrointestinal: Reports: GERD Genitourinary: Reports: Other (BPH) Neuro/Psych: Reports: None Musculoskeletal: Reports: None Cancer: Reports: None Other Pertinent Past Medical History: HERNIA X 3, RIGHT HIP REPLACEMENT, GALLBLADDER - Surgical History General Surgical History: Reports: Cholecystectomy, Pacemaker, Orthopedic (c6 fx ), Hernia Repair (x3 ) - Family History Family History: Reports: Unknown - Social History Smoking Status: Former smoker Hx Substance Use: No Alcohol Screening: None - Immunizations Tetanus Shot up to Date: Yes Physical Exam - Physical Exam Appearance: Ill-appearing Ill-appearing: Mild Eyes: ISMAEL, EOMI, Conjunctiva clear ENT: Ears normal, Nose normal, Oropharynx normal Neck: Supple Respiratory: Airway patent, Breath sounds clear, Breath sounds equal, Respirations nonlabored Cardiovascular: RRR, Pulses normal, No rub, No murmur, Irregular rhythm (rate 95 ) GI/: Soft, Nontender, No masses, Bowel sounds normal, No Organomegaly Musculoskeletal: Normal strength, ROM intact, No edema, No calf tenderness Skin: Warm, Dry, Normal color Neurological: Sensation intact, Motor intact, Reflexes intact, Cranial nerves intact, Alert, Oriented Psychiatric: Anxious Interpretation - Radiology Interpretation Radiology Interpretation By: ED Physician Radiology Results: No acute changes Exam Interpreted: Other (Pace maker in place, no cardiopulonary process) - Polygraph Operator Time of Polygraph Operator Interpretation: 19:30 Rate: Tachy Rhythm: Other (atrial Fibrillation) - EKG Interpretation Time of EKG #1: 18:49 Rate: Normal Rhythm: Other (Atrial Fibrillation) Ectopy: None Ledbetter: NL Interpretation: Atrial Fibrillation. Time of EKG #2: 18:52 Rate: Normal Rhythm: Sinus Ectopy: PACs Ledbetter: NL ST Segment: Normal EKG Interpretation: Normal sinsus with PACS. Re-Evaluation - Re-Evaluation Time of Re-Evaluation: 19:14 Vital Signs Stable: Yes (P 92, sat: 95% RA, ) Physician Notification - Case Discussed Physician Notified: Dr Hobson Time of Notification: 20:07 (admit to SCU start Digoxin 0.25 mg and Cardizem 60mg po now and BID) Critical Care Note - Critical Care Note Total Time (mins): 45 Comments: Heart rate fluctuates from 90s to 150s on telemetry Course - Course Hematology/Chemistry: 11/02/17 18:55 03/31/18 18:55 Orders, Labs, Meds: Lab Review 11/02/17 11/02/17 11/02/17 18:55 18:55 18:55 WBC 9.71 RBC 5.03 Hgb 15.6 Hct 45.7 MCV 90.9 MCH 31.0 MCHC 34.1 RDW Coeff of Elizabeth 13.6 Plt Count 228 Immature Gran % (Auto) 0.3 Neut % (Auto) 65.7 Lymph % (Auto) 16.8 Lanier % (Auto) 13.6 H Eos % (Auto) 3.4 Baso % (Auto) 0.2 Immature Gran # (Auto) 0.0 Neut # (Auto) 6.4 Lymph # (Auto) 1.6 Lanier # (Auto) 1.3 Eos # (Auto) 0.3 Baso # (Auto) 0.0 PT 10.2 INR 1.02 Puncture Site O2 Saturation ABG pH ABG pCO2 ABG pO2 ABG HCO3 ABG Total CO2 ABG Base Excess Tommie Test FiO2 % Sodium 140 Potassium 3.7 Chloride 104 Carbon Dioxide 24 Anion Gap 15.7 BUN 34 H Creatinine 1.41 H Estimated GFR (MDRD) 48.00 BUN/Creatinine Ratio 24.11 Glucose 103 Calcium 9.4 Magnesium Total Bilirubin 0.4 AST 16 ALT 17 Alkaline Phosphatase 72 Total Creatine Kinase 70 Troponin I 0.0300 Total Protein 6.7 Albumin 3.3 L Globulin 3.4 Albumin/Globulin Ratio 0.97 11/02/17 11/02/17 18:55 19:09 WBC RBC Hgb Hct MCV MCH MCHC RDW Coeff of Elizabeth Plt Count Immature Gran % (Auto) Neut % (Auto) Lymph % (Auto) Lanier % (Auto) Eos % (Auto) Baso % (Auto) Immature Gran # (Auto) Neut # (Auto) Lymph # (Auto) Lanier # (Auto) Eos # (Auto) Baso # (Auto) PT INR Puncture Site Rr O2 Saturation 96.0 ABG pH 7.445 ABG pCO2 34.3 L ABG pO2 80.0 L ABG HCO3 23.5 ABG Total CO2 25 ABG Base Excess -1 Tommie Test + FiO2 % 21.0 Sodium Potassium Chloride Carbon Dioxide Anion Gap BUN Creatinine Estimated GFR (MDRD) BUN/Creatinine Ratio Glucose Calcium Magnesium 1.8 Total Bilirubin AST ALT Alkaline Phosphatase Total Creatine Kinase Troponin I Total Protein Albumin Globulin Albumin/Globulin Ratio Orders Category Date Time Status ABG DRAW REQUEST Stat CARDIO 11/02/17 19:09 Completed EKG-(ED ONLY) Stat CARDIO 11/02/17 19:08 Completed EKG-(IP & OP ONLY) Routine CARDIO 11/02/17 20:15 Ordered NEBULIZER TREATMENT Routine CARDIO 11/02/17 20:17 Completed NEBULIZER TREATMENT Stat CARDIO 11/02/17 19:25 Completed INTAKE & OUTPUT Q8HR CARE 11/02/17 20:10 Active VITAL SIGNS Q4HR CARE 11/02/17 20:11 Active CARDIAC DIET DIETARY 11/02/17 Breakfast Ordered ED IV/MEDIPORT/POWERPORT .ONCE EMERGENCY 11/02/17 19:11 Active ED ORTHOSTATIC VITAL SIGNS .ONCE EMERGENCY 11/02/17 19:08 Active Orthostatic [ED ORTHOSTATIC VITAL SIGNS] .ONCE EMERGENCY 11/02/17 19:11 Active ABG Stat LAB 11/02/17 19:09 Completed CBC W/ AUTO DIFF DAILY@0600 LAB 11/03/17 06:00 Ordered CBC W/ AUTO DIFF DAILY@0600 LAB 11/04/17 06:00 Ordered CBC W/ AUTO DIFF Stat LAB 11/02/17 18:55 Completed COMPREHENSIVE METABOLIC PANEL DAILY@0600 LAB 11/03/17 06:00 Ordered COMPREHENSIVE METABOLIC PANEL DAILY@0600 LAB 11/04/17 06:00 Ordered COMPREHENSIVE METABOLIC PANEL Stat LAB 11/02/17 18:55 Completed CREATINE KINASE Stat LAB 11/02/17 18:55 Completed PT WITH INR Stat LAB 11/02/17 18:55 Completed SPUTUM CULTURE Stat LAB 11/02/17 19:34 Ordered TROPONIN I Stat LAB 11/02/17 18:55 Completed 0.9 % Sodium Chloride [Saline Flush] MEDS 11/02/17 19:11 Ordered 1 syr IVF PRN PRN Acetaminophen [Tylenol] MEDS 11/02/17 20:10 Ordered 650 mg PO Q4H PRN Apixaban [Eliquis] MEDS 11/02/17 21:00 Ordered 5 mg PO BID Budesonide/Formoterol Fumarate [Symbicort 160-4.5 Mcg MEDS 11/02/17 20:30 Ordered Inhaler] DOSE puff IH PRN Cholecalciferol (Vitamin D3) [Vitamin D] MEDS 11/03/17 09:00 Ordered 2,000 unit PO QAM Digoxin Inj [Lanoxin] MEDS 11/02/17 20:05 Discontinued 250 mcg IVP ONCE STA Diltiazem HCl [Cardizem] MEDS 11/02/17 20:09 Discontinued 60 mg PO ONCE STA Esomeprazole Magnesium [Nexium] MEDS 11/03/17 09:00 Ordered 1 tab PO DAILY Ipratropium/Albuterol Neb [Duoneb] MEDS 11/02/17 19:25 Discontinued 1 vial NEB ONCE STA Ipratropium/Albuterol Neb [Duoneb] MEDS 11/02/17 20:10 Ordered 1 vial NEB RTQ8H PRN Methylprednisolone Sod Succ/Pf [Solu-Medrol 125 mg] MEDS 11/02/17 20:27 Discontinued 125 mg .ROUTE .STK-MED ONE Methylprednisolone Sod Succ/Pf [Solu-Medrol 125 mg] MEDS 11/02/17 20:28 Discontinued 125 mg IVP ONCE STA Methylprednisolone Sod Succ/Pf [Solu-Medrol 125 mg] MEDS 11/02/17 21:00 Ordered 125 mg IVP TID Multivitamin [Multivitamin Tablet] MEDS 11/03/17 09:00 Ordered 1 tab PO DAILY Ondansetron HCl/Pf [Zofran 4 mg/2 ml] MEDS 11/02/17 20:10 Ordered 4 mg IVP Q6H PRN Sodium Chloride 0.9% [Sodium Chloride] 1,000 ml MEDS 11/02/17 20:30 Ordered IV 40 mls/hr Sotalol HCl [Betapace] MEDS 11/02/17 21:00 Ordered 80 mg PO BID Tamsulosin HCl [Flomax] MEDS 11/03/17 09:00 Ordered 0.4 mg PO DAILY Theophylline Anhydrous [Theophylline ER 24Hr] MEDS 11/03/17 09:00 Ordered 400 mg PO DAILY Zinc Mth/Copper/Saw Palm/Gnsg [Prostate Health Formula MEDS 11/03/17 09:00 Ordered Sftgel] 1 cap PO DAILY RESUSCITATION STATUS Routine OTHERS 11/02/17 20:10 Ordered CHEST, 1V AP ONLY Stat RADS 11/02/17 19:[address] HEAD W/O CONTRAST Stat RADS 11/02/17 19:23 Completed Medications Generic Name Dose Route Start Last Admin Trade Name Freq PRN Reason Stop Dose Admin Acetaminophen 650 mg 11/02/17 20:10 Tylenol PO Q4H PRN Fever > 102 Albuterol/Ipratropium 1 vial 11/02/17 20:10 Duoneb NEB RTQ8H PRN Wheezing Apixaban 5 mg 11/02/17 21:00 11/02/17 21:39 Eliquis PO 5 mg BID LINDA Administration Budesonide/Formoterol Fumarate puff 11/02/17 20:30 Symbicort 160-4.5 Mcg Inhaler IH PRN LINDA Cholecalciferol 2,000 unit 11/03/17 09:00 Vitamin D PO QAM LINDA Diltiazem HCl 60 mg 11/03/17 09:00 Cardizem PO Q12HR LINDA Sodium Chloride 1,000 mls @ 40 mls/hr 11/02/17 20:30 11/02/17 20:33 Sodium Chloride IV 40 mls/hr .Q25H LINDA Administration Methylprednisolone Sodium Succinate 125 mg 11/02/17 21:00 11/02/17 21:56 Solu-Medrol 125 Mg IVP Not Given TID LINDA Multivitamins 1 tab 11/03/17 09:00 Multivitamin Tablet PO DAILY LINDA Non-Formulary Medication 1 tab 11/03/17 09:00 Esomeprazole Magnesium [Nexium] PO DAILY LINDA Non-Formulary Medication 1 cap 11/03/17 09:00 Zinc Mth/Copper/Saw Palm/Gnsg [Prostate Health Formula Sftgel] PO DAILY LINDA Ondansetron HCl 4 mg 11/02/17 20:10 Zofran 4 Mg/2 Ml IVP Q6H PRN Nausea / Vomiting Sodium Chloride 1 syr 11/02/17 19:11 Saline Flush IVF PRN PRN To flush IV Sotalol HCl 80 mg 11/02/17 21:00 11/02/17 21:39 Betapace PO 80 mg BID LINDA Administration Tamsulosin HCl 0.4 mg 11/03/17 09:00 Flomax PO DAILY LINDA Theophylline 400 mg 11/03/17 09:00 Theophylline Er 24hr PO DAILY LINDA Discontinued Medications Generic Name Dose Route Start Last Admin Trade Name Freq PRN Reason Stop Dose Admin Albuterol/Ipratropium 1 vial 11/02/17 19:25 11/02/17 19:40 Duoneb NEB 11/02/17 19:26 1 vial ONCE STA Administration Digoxin 250 mcg 11/02/17 20:05 11/02/17 20:13 Lanoxin IVP 11/02/17 20:06 250 mcg ONCE STA Administration Diltiazem HCl 60 mg 11/02/17 20:09 11/02/17 20:14 Cardizem PO 11/02/17 20:10 60 mg ONCE STA Administration Methylprednisolone Sodium Succinate 125 mg 11/02/17 20:28 11/02/17 20:33 Solu-Medrol 125 Mg IVP 11/02/17 20:29 125 mg ONCE STA Administration Vital Signs: Temp Pulse Resp BP Pulse Ox 11/02/17 21:01 138/94 H 11/02/17 20:13 121 H 11/02/17 20:09 144/88 H 11/02/17 19:14 82 150/101 H 11/02/17 19:13 81 152/91 H 11/02/17 18:46 100.3 F H 130 H 20 127/102 H 96 LITA Risk Score Age >/= 65: Yes >/= 3 CAD Risk Factors: No Known CAD (Stenosis >/= 50%): No ASA Use in Past 7 Days: No Severe Angina (>/= 2 episodes in 24 hours): No EKG ST Changes >/= 0.5mm: No Postive Cardiac Marker: No LITA Total Score: 1 LITA Risk Score: Risk Score Odds of by 30D 0 0.1 (0.1-0.2) 1 0.3 (0.2-0.3) 2 0.4 (0.3-0.5) 3 0.7 (0.6-0.9) 4 1.2 (1.0-1.5) 5 2.2 (1.9-2.6) 6 3.0 (2.5-3.6) 7 4.8 (3.8-6.1) Departure - Departure Time of Disposition: 20:30 Disposition: HOME SELF-CARE Discharge Problem: Atrial fibrillation with rapid ventricular response, Cough with expectoration Condition: Fair Pt referred to PMD for follow-up: No IPMP verified?: No (admited ) Allergies/Adverse Reactions: Allergies morphine Allergy (Severe, Verified 11/02/17 18:57) "Retricts breathing" alprazolam [From Xanax] Adverse Reaction (Intermediate, Verified 11/02/17 18:57) hallucinations Hallucinations aspirin Adverse Reaction (Mild, Verified 11/02/17 18:57) Abdominal Pain Sulfa (Sulfonamide Antibiotics) Adverse Reaction (Unknown, Verified 11/02/17 18: 57) Unknown celecoxib [From Celebrex] Adverse Reaction (Verified 11/02/17 18:57) Unknown metoprolol [From Toprol XL] Adverse Reaction (Verified 11/02/17 18:57) Unknown Home Medications: Ambulatory Orders Esomeprazole Magnesium [Nexium] 1 tab PO DAILY 08/07/13 Multivitamin [Multi-Vitamin Daily] 1 tab PO DAILY 08/07/13 Tamsulosin HCl [Flomax] 1 tab PO DAILY 08/07/13 Theophylline Anhydrous [Theophylline] 1 tab PO DAILY 08/07/13 Zinc Mth/Copper/Saw Palm/Gnsg [Prostate Health Formula Sftgel] 1 cap PO DAILY Albuterol Sulfate 0.083% Neb [Albuterol 0.083% Neb] 1 vial NEB RTQ8H PRN Albuterol Sulfate [Proair Hfa] 2 puff IH Q4H PRN 03/20/16 Cholecalciferol (Vitamin D3) [Vitamin D3] 2,000 unit PO QAM 03/27/16 Budesonide/Formoterol Fumarate [Symbicort 160-4.5 Mcg Inhaler] 2 inh INH PRN PRN 08/14/16 Apixaban [Eliquis] 5 mg PO BID 09/29/17 Sotalol HCl [Sotalol] 80 mg PO BID 09/29/17 Disposition Discussed With: Patient
[2017-11-02] MEDS ORDERED: DUONEB NEB STA (19:25)
--- NOTE | 2017-11-02 19:44 | CT ---
Exam: CT of the brain without intravenous contrast. Comparison: 03/20/2016. Reason for exam: Dizziness on anticoagulation therapy. FINDINGS: No acute intracranial hemorrhage, mass effect, ventricular dilatation, or territorial infa rction. The quadrigeminal and ambient cisterns are patent. There is no extraaxial fluid collection. Parenchymal changes are seen consistent with chronic microvascular disease and age related atrophy. The calvarium is intact without depressed skull fracture. Impression: 1. No acute intracranial findings. 2. Parenchymal changes consistent with chronic microvascular disease and age related atrophy. Report faxed at [id number] hours on 11/02/2017.
[2017-11-02] MEDS ORDERED: LANOXIN IVP STA (20:05)
[2017-11-02] MEDS ORDERED: CARDIZEM PO STA (20:09)
[2017-11-02] MEDS ORDERED: ZOFRAN 4 MG/2 ML IVP PRN (20:10)
[2017-11-02] MEDS ORDERED: TYLENOL PO PRN (20:10)
[2017-11-02] MEDS ORDERED: DUONEB NEB PRN (20:10)
[2017-11-02] MEDS ORDERED: SOLU-MEDROL 125 MG ONE (20:27)
[2017-11-02] MEDS ORDERED: SOLU-MEDROL 125 MG IVP STA (20:28)
[2017-11-02] MEDS ORDERED: SYMBICORT 160-4.5 MCG INHALER IH PRN (20:30)
[2017-11-02] MEDS: SODIUM CHLORIDE 1,000 ML IV SCH (20:33)
[2017-11-02] MEDS: BETAPACE PO SCH (21:39)
[2017-11-02] MEDS: ELIQUIS PO SCH (21:39)
[2017-11-02] MEDS: SOLU-MEDROL 125 MG IVP SCH (21:56)
--- NOTE | 2017-11-03 06:33 | DI ---
EXAM: Portable chest HISTORY: Cough COMPARISON: Two-view chest 08/14/2016 FINDINGS: The cardiomediastinal silhouette is stable. There is a stable left-sided dual lead pacema ker. There are emphysematous changes without evidence of active pulmonary disease. IMPRESSION: Emphysematous changes without evidence of active pulmonary disease Stable dual lead pacemaker
[2017-11-03] MEDS ORDERED: ESOMEPRAZOLE MAGNESIUM PO SCH (09:00)
[2017-11-03] MEDS ORDERED: CARDIZEM PO SCH (09:00)
[2017-11-03] MEDS: MULTIVITAMIN TABLET PO SCH (09:12)
[2017-11-03] MEDS: VITAMIN D PO SCH (09:12)
[2017-11-03] MEDS: FLOMAX PO SCH (09:12)
[2017-11-03] MEDS: PROTONIX PO SCH (09:13)
[2017-11-03] MEDS: ELIQUIS PO SCH ×2 (09:13→20:49)
[2017-11-03] MEDS: BETAPACE PO SCH ×2 (09:14→20:49)
[2017-11-03] MEDS: THEOPHYLLINE ER 24HR PO SCH (09:14)
[2017-11-03] MEDS: SOLU-MEDROL 125 MG IVP SCH ×3 (09:16→20:48)
[2017-11-03] MEDS: COPPER PO SCH (09:17)
[2017-11-03] MEDS: [UNRECOGNIZED DRUG - OTHER] PO SCH (09:17)
[2017-11-03] MEDS: CARDIZEM PO SCH (20:48)
[2017-11-03] MEDS: SODIUM CHLORIDE 1,000 ML IV SCH (21:17)
[2017-11-04] MEDS: PROTONIX PO SCH (05:46)
[2017-11-04] MEDS: BETAPACE PO SCH (08:23)
[2017-11-04] MEDS: MULTIVITAMIN TABLET PO SCH (08:23)
[2017-11-04] MEDS: THEOPHYLLINE ER 24HR PO SCH (08:23)
[2017-11-04] MEDS: VITAMIN D PO SCH (08:23)
[2017-11-04] MEDS: FLOMAX PO SCH (08:23)
[2017-11-04] MEDS: CARDIZEM PO SCH (08:23)
[2017-11-04] MEDS: ELIQUIS PO SCH (08:24)
[2017-11-04] MEDS: COPPER PO SCH (08:27)
[2017-11-04] MEDS: [UNRECOGNIZED DRUG - OTHER] PO SCH (08:27)
--- NOTE | 2017-11-04 09:57 | CM.DICTOOL ---
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 Temp Pulse Resp BP Pulse Ox 97.5 F L 72 16 162/90 H 97 11/04/17 05:30 11/04/17 05:30 11/04/17 05:30 11/04/17 05:30 11/04/17 05:30 TAKE THESE MEDICATIONS AT HOME Acetaminophen (Tylenol) 650 mg PO Q4H PRN PRN Reason: Fever > 102 Apixaban (Eliquis) 5 mg PO BID [facility] Last Admin: 11/04/17 08:24 Dose: 5 mg Budesonide/Formoterol Fumarate (Symbicort 160-4.5 Mcg Inhaler) 1 puff IH BEDTIME PRN PRN Reason: NEEDED Cholecalciferol (Vitamin D) 2,000 unit PO QAM [facility] Last Admin: 11/04/17 08:23 Dose: 2,000 unit Diltiazem HCl (Cardizem) 60 mg PO TID [facility] Last Admin: 11/04/17 08:23 Dose: 60 mg Multivitamins (Multivitamin Tablet) 1 tab PO DAILY [facility] Last Admin: 11/04/17 08:23 Dose: 1 tab Non-Formulary Medication (Zinc Mth/Copper/Saw Palm/Gnsg [Prostate Health Formula [facility]]) 1 cap PO DAILY [facility] Last Admin: 11/04/17 08:27 Dose: Not Given Sotalol HCl (Betapace) 80 mg PO BID [facility] Last Admin: 11/04/17 08:23 Dose: 80 mg Tamsulosin HCl (Flomax) 0.4 mg PO DAILY [facility] Last Admin: 11/04/17 08:23 Dose: 0.4 mg Theophylline (Theophylline Er 24hr) 400 mg PO DAILY [facility] Last Admin: 11/04/17 08:23 Dose: 400 mg NEXIUM DAILY ALBUTEROL 0.083% NEBULIZER EVERY 8 HOURS NEEDED PROAIR HFA 2 PUFFS EVERY 4 HOURS PRN SYMBICORT 160-4.5 2 INH NEEDED PRN PREDNISONE 20MG PO DAILY X 3 DAYS, THEN 10MG PO DAILY X 3 DAYS THEN 5MG PO DAILY X 4 DAYS. ALLERGIES morphine Allergy (Severe, Verified 11/02/17 18:57) "Retricts breathing" alprazolam [From Xanax] Adverse Reaction (Intermediate, Verified 11/02/17 18:57) hallucinations aspirin Adverse Reaction (Mild, Verified 11/02/17 18:57) Abdominal Pain Sulfa (Sulfonamide Antibiotics) Adverse Reaction (Unknown, Verified 11/02/17 18: 57) Unknown celecoxib [From Celebrex] Adverse Reaction (Verified 11/02/17 18:57) Unknown metoprolol [From Toprol XL] Adverse Reaction (Verified 11/02/17 18:57) Unknown DISCONTINUED MEDICATIONS: NONE NEW PRESCRIPTIONS: NEW MEDICATIONS: 1. PREDNISONE 20MG TAKE 1 TABLET DAILY FOR 3 DAYS. THEN 10MG DAILY X 3 DAYS. THEN 5MG DAILY X 4 DAYS. 2. CARDIZEM 60MG TAKE 1 CAPSULE BID. MAY TAKE ADDITIONAL TABLET FOR RAPID HEART RATE NEEDED FOR A TOTAL OF 3 TABLETS PER DAY. SMOKING: N/A DISEASE SPECIFIC EDUCATION: A-FIB CURRENT HOME MEDICATIONS STEROID THERAPY CARDIZEM DIET ACTIVITY LAB REVIEW: 11/04/17 05:20 11/04/17 05:20 11/04/17 05:20: Sodium 137, Potassium 4.4, Chloride 107, Carbon Dioxide 21 L, Anion Gap 13.4, BUN 35 H, Creatinine 1.07, Estimated GFR (MDRD) 65.00, BUN/ Creatinine Ratio 32.71, Glucose 165 H, Calcium 9.3, Total Bilirubin 0.5, AST 12 L, ALT 15, Alkaline Phosphatase 65, Total Protein 6.4, Albumin 3.2 L, Globulin 3.2, Albumin/Globulin Ratio 1.00 11/04/17 05:20: WBC 15.30 H D, RBC 4.88, Hgb 14.9, Hct 44.0, MCV 90.2, MCH 30.5 , MCHC 33.9, RDW Coeff of Elizabeth 13.9, Plt Count 247, Neutrophils % (Manual) 86.0 H , Band Neutrophils % 2.0, Lymphocytes % (Manual) 3.0 L, Monocytes % (Manual) 5.0 , Reactive Lymphocytes 4.0, Anisocytosis Not present PLAN: DISCHARGE TO HOME TODAY 11/04/17. CONTINUE HOME MEDICATIONS PER NURSING SHEETS. NEW MEDICATIONS: 1. PREDNISONE 20MG TAKE 1 TABLET DAILY FOR 3 DAYS. THEN 10MG DAILY X 3 DAYS. THEN 5MG DAILY X 4 DAYS. 2. CARDIZEM 60MG TAKE 1 CAPSULE BID. MAY TAKE ADDITIONAL DOSE FOR RAPID HEART RATE NEEDED FOR A TOTAL OF 3 TABLETS PER DAY. DIET TOLERATED. ACTIVITY: GRADUALLY RESUME ACTIVITY. FOLLOW UP WITH DR. HOBSON ON SaturdayNovember AT 1115AM. PLEASE CALL IF UNABLE TO KEEP APPOINTMENT. [phone]. IS A FULL CODE. SITTING ON SIDE OF BED. ALERT AND ORIENTED X 4. SPOUSE AND FAMILY AT BEDSIDE. DR. HOBSON INTO SEE PATIENT. PATIENT STATES FEELING BETTER BUT DID NOT SLEEP WELL R/T STEROIDS. PLAN OF CARE DISCUSSED PER DR. HOBSON. PATIENT AND FAMILY VERBALIZES UNDERSTANDING AND AGREEMENT. APPETITE IS GOOD. BLOOD PRESSURE IMPROVED THIS AM. HAS BEEN AFEBRILE. POX 97% ON ROOM AIR. HEART TONES ARE IRREGULAR WITH TEACHER HOME THERAPY REVEALING A-FIB WITH PACER. NO C/O PAIN OR DISCOMFORT. LUNGS ARE CLEAR. NO COUGH OR DYSPNEA NOTED. ABDOMEN IS SOFT, NON- TENDER WITH BOWEL SOUNDS POSITIVE IN ALL 4 QUADS. PEDAL PULSES POSITIVE WITHOUT EDEMA. HAS SALINE LOCK IN LEFT AC SITE IS CLEAR. HAS SKIN TEAR X 3: LEFT WRIST, RIGHT ELBOW AND LEFT ELBOW. ALL PRESENT ON ADMISSION. SKIN TEARS WERE A RESULT OF FALL AT HOME. FALL OCCURRED DUE TO "DIZZINESS FROM STANDING UP TOO QUICK" WHICH HAS RESOLVED. DR. CHRISTOPHER HOBSON MD
[2017-11-04] MEDS: SOLU-MEDROL 125 MG IVP SCH (10:22)
[2017-11-04 10:34] VITALS: BP 152/85; TEMP 98.3
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
--- NOTE | 2017-11-04 15:35 | PN ---
DATE OF SERVICE: 11/03/17 SUBJECTIVE: 87 year old white male hospitalized with atrial fibrillation, palpation, severe hypertension and exacerbation of acute bronchitis. The patient has been feeling a lot better. His bronchitis symptoms are much less. No palpations. The is in the room. REVIEW OF SYSTEMS: CONSTITUTIONAL: No night sweats. No fatigue, malaise, lethargy. No fever or chills. HEENT: Eyes: No visual changes. No eye pain. No eye discharge. ENT: No runny nose. No epistaxis. No sinus pain. No sore throat. No odynophagia. No congestion. RESPIRATORY: No cough, no congestion. No hemoptysis. No shortness of breath. CARDIOVASCULAR: No angina symptoms. No CHF symptoms. No atypical chest pain for CAD. No palpitations. No orthopnea. GASTROINTESTINAL: No abdominal pain. No nausea or vomiting. No diarrhea or constipation. No hematemesis. No hematochezia. GENITOURINARY: No urgency. No frequency. No dysuria. No hematuria. No obstructive symptoms. No discharge. No pain. No significant abnormal bleeding. MUSCULOSKELETAL: No musculoskeletal pain; no joint swelling. NEUROLOGICAL: No headache. No neck pain. No syncope. No seizures. No dizziness. PSYCHIATRIC: Not anxious. No depression. No suicidal thoughts. No homicidal thoughts. SKIN: No rash. No lesions. No wounds. ENDOCRINE: No unexplained weight loss. No weight gain. HEMATOLOGIC/LYMPHATIC: No anemia. No purpura. No petechiae. No prolonged or excessive bleeding. No palpable lymph nodes. PHYSICAL EXAMINATION: GENERAL: The patient is oriented to time, place and person. VITAL SIGNS: Temperature 98, pulse 69, respiratory rate 16, blood pressure 134/ 81 and pulse ox 93%. HEENT: Head normocephalic, atraumatic. Eyes: Extraocular muscles are intact. Pupils are equal, round and reactive to light and accommodation. Ears: No lesions. Nose appeared normal. Throat: No exudate or erythema. NECK: Supple. No JVP, no carotid bruit. No lymphadenopathy or thyromegaly. LUNGS: Decreased breath sounds. No wheezing. Percussion note normal. Chest symmetrical. HEART: S1, S2, no S3. No murmurs. No cyanosis or clubbing. No ascites. Pulses: Dorsalis pedis and posterior tibial pulses +1 to +2 both sides. ABDOMEN: Soft. Nontender. Bowel sounds active. No CVA tenderness. No mass felt. EXTREMITIES: No edema. Full range of motion of all extremities, equal. NEUROLOGIC: No focal deficit. Cranial nerves II through XII are grossly intact. No headache, no double vision or headache. SKIN: Not dry. Intact. Turgor - normal. LYMPHATIC: No palpable lymph nodes/no lymphedema. MUSCULOSKELETAL: Normal joints with no swelling. Muscle tone is normal. LABS: Hgb 15, hct 45, creatinine 1.4, BUN 34. ASSESSMENT: 1. Acute bronchitis asthmatic seems to be resolving 2. Atrial fibrillation, seems to be under control with controlled rate. The patient is on Cardizem 60mg twice a day which we will increase to three times a day. Lanoxin was given yesterday and no need to given Lanoxin 3. Hypertension seems to be under control with addition of Cardizem PLAN: 1. Continue to monitor Telemetry 2. Continue NEBS treatment with Steroids 3. Will discontinue IV fluids 4. The patient is advised to be up and about CONDITION:Stabilizing, TIME SPENT: More than 30 minutes. Plan and coordination of the patient's care discussed in the presence of nurse. CORTEZ
--- NOTE | 2017-11-05 08:23 | DS ---
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 Temp Pulse Resp BP Pulse Ox 97.5 F L 72 16 162/90 H 97 TAKE THESE MEDICATIONS AT HOME Acetaminophen (Tylenol) 650 mg PO Q4H PRN Apixaban (Eliquis) 5 mg PO BID [facility] Budesonide/Formoterol Fumarate (Symbicort 160-4.5 Mcg Inhaler) 1 puff IH BEDTIME PRN Cholecalciferol (Vitamin D) 2,000 unit PO QAM [facility] Diltiazem HCl (Cardizem) 60 mg PO TID [facility] Multivitamins (Multivitamin Tablet) 1 tab PO DAILY [facility] Non-Formulary Medication (Zinc Mth/Copper/Saw Palm/Gnsg [Prostate Health Formula Sftgel]) 1 cap PO DAILY [facility] Sotalol HCl (Betapace) 80 mg PO BID [facility] Tamsulosin HCl (Flomax) 0.4 mg PO DAILY [facility] Theophylline (Theophylline Er 24hr) 400 mg PO DAILY [facility] NEXIUM DAILY ALBUTEROL 0.083% NEBULIZER EVERY 8 HOURS NEEDED PROAIR HFA 2 PUFFS EVERY 4 HOURS PRN SYMBICORT 160-4.5 2 INH NEEDED PRN PREDNISONE 20MG PO DAILY X 3 DAYS, THEN 10MG PO DAILY X 3 DAYS THEN 5MG PO DAILY X 4 DAYS. ALLERGIES morphine Allergy (Severe, Verified 11/02/17 18:57) "Retricts breathing" alprazolam [From Xanax] Adverse Reaction (Intermediate, Verified 11/02/17 18:57) hallucinations aspirin Adverse Reaction (Mild, Verified 11/02/17 18:57) Abdominal Pain Sulfa (Sulfonamide Antibiotics) Adverse Reaction (Unknown, Verified 11/02/17 18: 57) Unknown celecoxib [From Celebrex] Adverse Reaction (Verified 11/02/17 18:57) Unknown metoprolol [From Toprol XL] Adverse Reaction (Verified 11/02/17 18:57) Unknown DISCONTINUED MEDICATIONS: NONE NEW PRESCRIPTIONS: NEW MEDICATIONS: 1. PREDNISONE 20MG TAKE 1 TABLET DAILY FOR 3 DAYS. THEN 10MG DAILY X 3 DAYS. THEN 5MG DAILY X 4 DAYS. 2. CARDIZEM 60MG TAKE 1 CAPSULE BID. MAY TAKE ADDITIONAL TABLET FOR RAPID HEART RATE NEEDED FOR A TOTAL OF 3 TABLETS PER DAY. SMOKING: N/A DISEASE SPECIFIC EDUCATION: A-MAREN CURRENT HOME MEDICATIONS STEROID THERAPY CARDIZEM DIET ACTIVITY PLAN: DISCHARGE TO HOME TODAY 11/04/17. CONTINUE HOME MEDICATIONS PER NURSING SHEETS. NEW MEDICATIONS: 1. PREDNISONE 20MG TAKE 1 TABLET DAILY FOR 3 DAYS. THEN 10MG DAILY X 3 DAYS. THEN 5MG DAILY X 4 DAYS. 2. CARDIZEM 60MG TAKE 1 CAPSULE BID. MAY TAKE ADDITIONAL DOSE FOR RAPID HEART RATE NEEDED FOR A TOTAL OF 3 TABLETS PER DAY. DIET TOLERATED. ACTIVITY: GRADUALLY RESUME ACTIVITY. FOLLOW UP WITH DR. HOBSON ON SaturdayNovember AT 1115AM. PLEASE CALL IF UNABLE TO KEEP APPOINTMENT. [phone]. HOSPITAL COURSE: 87 year old white male hospitalized with paroxysmal atrial fibrillation and exacerbation of bronchial asthma. The patient was aggressively treated with steroids and NEBS treatment along with IV Lanoxin to slow the response of ventricle to his atrial fibrillation. Cardizem was added 60mg three times a day. The patient's condition improved. He did not have any palpitation. The patient has cardioversion done two weeks ago. The patient's condition at the time of discharge is stable. New medications Cardizem supposed to take twice a day but the third one he can take it if he feels palpitations. The patient at the time of discharge is stable. TIME SPENT: More than 60 minutes. MTDD
--- NOTE | 2017-11-05 08:24 | PN ---
11/02/17: Level 5 11/03/17: Intermediate 11/04/17: D as in discharge MTDD
== END 2017-11-04 10:40 | disposition home or self-care (01) | DRG 309 ==
LOC: ED 18:45 → SCU 21:07
PROVIDERS: ADMIT Internal Medicine; ATTEND Internal Medicine
DX: I48.91 Unspecified atrial fibrillation (principal); J45.901 Unspecified asthma with (acute) exacerbation; R05 Cough; R42 Dizziness and giddiness; I10 Essential (primary) hypertension; K21.9 Gastro-esophageal reflux disease without esophagitis; N40.0 Benign prostatic hyperplasia without lower urinary tract symptoms; M50.30 Other cervical disc degeneration, unspecified cervical region; Z79.01 Long term (current) use of anticoagulants; Z79.899 Other long term (current) drug therapy; Z95.0 Presence of cardiac pacemaker
CPT/HCPCS: 36415; 80053; 82550; 82803; 83735; 84484; 85007; 85025; 85610; 87070; 87081; 93005; 93010; 94640; 96374; 96375; 99223; 99232; 99239; 99284

== ENCOUNTER 2018-09-10 15:20 | Emergency (ER) ==
[2018-09-10 15:34] VITALS: TEMP 97.7; BMI 25.1
--- NOTE | 2018-09-10 15:48 | ED.PDOC ---
General ED Provider: Dr. MEEK LOVETT Chief Complaint: Cough Stated Complaint: shortness of breath,increasing cough,history of COPD,pacemaker ,HTN Time Seen by Physician: 15:47 Mode of Arrival: Walk-In Information Source: Patient, Family Exam Limitations: No limitations Primary Care Provider: CHRISTOPHER HOBSON Referred to ED by: Other Nursing and Triage Documentation Reviewed and Agree: Yes Does patient meet sepsis criteria?: No System Inflammatory Response Syndrome: Not Applicable Sepsis Protocol: For patient's 13 years and over: Temp is 96.8 and below OR 101 and greater Pulse >90 BPM Resp >20/minute Acutely Altered Mental Status Are patient's symptoms suggestive of a new infection, such as: -Pneumonia -Skin, Soft Tissue -Endocarditis -UTI -Bone, Joint Infection -Implantable Device -Acute Abdominal Infection -Wound Infection -Meningitis -Blood Stream Catheter Infection -Unknown Respiratory Complaint Exam - Respiratory Complaint/Exam Onset/Duration: few days Symptoms Are: Still present Timing: Constant Initial Severity: Moderate Current Severity: Moderate Location: Chest Character: Reports: Dry cough, Bronchospastic cough Aggravating: Reports: Weather, Deep breaths Alleviating: Reports: Bronchodilators Associated Signs and Symptoms: Reports: Dyspnea Related History: Reports: Similar episode History of Healthcare-Acquired Pneumonia: No Related Surgical History: Reports: Pacemaker Cardiac Risk Factors: Reports: Hypertension Pseudomonas Risk Factors: Reports: Chronic Lung Disease Tuberculosis Risk Factors: Reports: None Status Asthmaticus Risk Factors: Reports: None Home Oxygen Use: No Recent Stress Test: No Recent Echo/LV Function: No Current Antibiotic Use: No Current Asthma Medication Use: No Respiratory Distress: Mild Inadequate Respiratory Effort: No Dysphagia Present: No Stridor Present: No JVD Present: No Accessory Muscle Use: No Retractions: Not Present Diminished Breath Sounds: Yes Prolonged Respiration: Expiratory phase Sinus Tenderness: None Grunting Respirations: No Kussmaul Respirations: Yes Differential Diagnoses: Asthma, Pneumonia, Bronchitis Review of Systems - Review Of Systems Constitutional: Reports: Other Eyes: Reports: No symptoms Ears, Nose, Mouth, Throat: Reports: No symptoms Respiratory: Reports: No symptoms Cardiac: Reports: No symptoms GI: Reports: No symptoms : Reports: No symptoms Musculoskeletal: Reports: No symptoms Skin: Reports: No symptoms Neurological: Reports: No symptoms Endocrine: Reports: No symptoms Hematologic/Lymphatic: Reports: No symptoms All Other Systems: Reviewed and Negative Past Medical History - Past Medical History Previously Healthy: No Endocrine: Reports: None Cardiovascular: Reports: A-Fib Respiratory: Reports: COPD Hematological: Reports: None Gastrointestinal: Reports: GERD Genitourinary: Reports: Other (BPH) Neuro/Psych: Reports: None Musculoskeletal: Reports: None Cancer: Reports: None Other Pertinent Past Medical History: HERNIA X 3, RIGHT HIP REPLACEMENT, GALLBLADDER - Surgical History General Surgical History: Reports: Cholecystectomy, Pacemaker, Orthopedic (c6 fx ), Hernia Repair (x3 ) - Family History Family History: Reports: Unknown - Social History Smoking Status: Former smoker Hx Substance Use: No Alcohol Screening: None Physical Exam - Physical Exam Appearance: Well-appearing Ill-appearing: None Pain Distress: None Eyes: ISMAEL ENT: Ears normal Neck: Supple Respiratory: Airway patent Cardiovascular: RRR GI/: Soft Musculoskeletal: Normal strength Skin: Warm Neurological: Sensation intact Critical Care Note - Critical Care Note Total Time (mins): 0 Course - Course Orders, Labs, Meds: Orders Category Date Time Status NEBULIZER TREATMENT Stat CARDIO 09/10/18 15:58 Completed Ipratropium/Albuterol Neb [Duoneb] MEDS 09/10/18 15:57 Discontinued 1 vial NEB ONCE STA CHEST, 2 VIEWS PA & LAT Stat RADS 09/10/18 15:59 Completed Medications Discontinued Medications Generic Name Dose Route Start Last Admin Trade Name Freq PRN Reason Stop Dose Admin Albuterol/Ipratropium 1 vial 09/10/18 15:57 09/10/18 16:09 Duoneb NEB 09/10/18 15:58 1 vial ONCE STA Administration Vital Signs: Temp Pulse Resp BP Pulse Ox 09/10/18 17:33 155/94 H 09/10/18 16:00 144/97 H 09/10/18 15:20 97.7 F 73 20 185/103 H 95 Departure - Departure Time of Disposition: 17:46 Disposition: HOME SELF-CARE Discharge Problem: COPD (chronic obstructive pulmonary disease) Instructions: COPD (Chronic Obstructive Pulmonary Disease) (ED) Condition: Good Pt referred to PMD for follow-up: No (PCP of choice) IPMP verified?: No Allergies/Adverse Reactions: Allergies morphine Allergy (Severe, Verified 09/10/18 15:27) "Retricts breathing" alprazolam [From Xanax] Adverse Reaction (Intermediate, Verified 09/10/18 15:27) hallucinations Hallucinations aspirin Adverse Reaction (Mild, Verified 09/10/18 15:27) Abdominal Pain Sulfa (Sulfonamide Antibiotics) Adverse Reaction (Unknown, Verified 09/10/18 15: 27) Unknown celecoxib [From Celebrex] Adverse Reaction (Verified 09/10/18 15:27) Unknown metoprolol [From Toprol XL] Adverse Reaction (Verified 09/10/18 15:27) Unknown Home Medications: Ambulatory Orders Esomeprazole Magnesium [Nexium] 1 tab PO DAILY 08/07/13 Multivitamin [Multi-Vitamin Daily] 1 tab PO DAILY 08/07/13 Tamsulosin HCl [Flomax] 1 tab PO DAILY 08/07/13 Theophylline Anhydrous [Theophylline] 1 tab PO DAILY 08/07/13 Zinc Mth/Copper/Saw Palm/Gnsg [Prostate Health Formula Sftgel] 1 cap PO DAILY Albuterol Sulfate 0.083% Neb [Albuterol 0.083% Neb] 1 vial NEB RTQ8H PRN Albuterol Sulfate [Proair Hfa] 2 puff IH Q4H PRN 03/20/16 Cholecalciferol (Vitamin D3) [Vitamin D3] 2,000 unit PO QAM 03/27/16 Budesonide/Formoterol Fumarate [Symbicort 160-4.5 Mcg Inhaler] 2 inh INH PRN PRN 08/14/16 Apixaban [Eliquis] 5 mg PO BID 09/29/17 Sotalol HCl [Sotalol] 80 mg PO BID 09/29/17 Diltiazem HCl [Cardizem] 60 mg PO BID 09/10/18 Disposition Discussed With: Patient, Family
[2018-09-10] MEDS: DUONEB NEB STA (16:09)
[2018-09-10 17:33] VITALS: BP 155/94
--- NOTE | 2018-09-10 17:44 | DI ---
EXAM: CHEST FRONTAL AND LATERAL VIEWS HISTORY: Shortness of breath. COMPARISON: 11/02/2017 FINDINGS: The heart size mildly prominent, stable. Left-sided pacemaker unit is unchanged. Ectasia and at least mild atherosclerosis of the aorta is stable. There is diffuse, chronic appearing inter stitial accentuation. Lungs are hyperinflated and there is relative lucency of the lung zones sugges ting pulmonary emphysema. No obvious consolidated pneumonia or acute infiltrate. No vascular conges tion, pneumothorax or pleural fluid. IMPRESSION: 1. Cannot exclude a component chronic obstructive pulmonary disease, correlate clinically. No acute infiltrates identified.
== END 2018-09-10 17:45 | disposition home or self-care (01) ==
LOC: ED 15:20
DX: J44.9 Chronic obstructive pulmonary disease, unspecified (principal); R06.02 Shortness of breath; I10 Essential (primary) hypertension; Z95.0 Presence of cardiac pacemaker; Z79.899 Other long term (current) drug therapy
CPT/HCPCS: 94640; 99283

== ENCOUNTER 2018-09-12 11:08 | Inpatient (IN) ==
[2018-09-12] MEDS ORDERED: VISTARIL INJ IM PRN (11:49)
[2018-09-12] MEDS ORDERED: NITROSTAT SL PRN (11:49)
[2018-09-12] MEDS ORDERED: TYLENOL PO PRN (11:49)
[2018-09-12] MEDS ORDERED: ATROPINE SULFATE PFS IVP PRN (11:49)
[2018-09-12] MEDS ORDERED: TORADOL IVP PRN (11:50)
[2018-09-12] MEDS ORDERED: ALBUTEROL 0.083% NEB NEB PRN (12:00)
[2018-09-12 12:21] VITALS: BMI 24.8
[2018-09-12] MEDS: ROCEPHIN 1 GM in SODIUM CHLORIDE 50 ML IV SCH (13:24)
[2018-09-12] MEDS: SODIUM CHLORIDE 1,000 ML IV SCH (13:24)
[2018-09-12] MEDS: XOPENEX 1.25 MG NEB SCH ×2 (14:28→20:15)
--- NOTE | 2018-09-12 14:42 | DI ---
EXAM: Five views of the lumbar spine. History: Lower back pain. Comparison: Lumbar spine CT 03/20/2016 Findings: Atherosclerotic vascular calcifications of the abdominal aorta. Cholecystectomy clips. R ight hip arthroplasty hardware. Progressive compression deformity involving the L1 vertebral body no w with about 50% loss of vertebral body height. No other fractures are identified. 2 mm retrolisthe sis of L3 on L4 is most likely degenerative in nature. Moderate to severe disc space narrowing at L3 -4, L4-5 and L5-S1 with endplate sclerosis and osteophyte formation progressed compared to the prior study. There is moderate to severe facet hypertrophy at L5-S1 also progressed. Osteopenia. Impression: 1. Progressive compression deformity at L1. 2. Progressive degenerative changes
--- NOTE | 2018-09-12 14:43 | CT ---
EXAM: CT THORAX HISTORY: Shortness of breath. TECHNIQUE: CT thorax without intravenous contrast. Multiplanar images presented. COMPARISON: 09/29/2017 FINDINGS: Normal heart size without pericardial effusion. Pacemaker unit. Moderate atherosclerotic disease in cluding coronary arteries. Multiple small stable nonspecific mediastinal lymph nodes. Lungs reveal moderate emphysema and scattered scarring which are stable. There is a small focus of p leural thickening along the mediastinal pleura of the upper left lung which is stable since the recen t study although has developed since older exam in 2016. A few noncalcified micro nodules are seen i n the left lower lobe. Scattered tiny calcified granulomas are present. There is no consolidated pn eumonia, vascular congestion, pneumothorax or pleural fluid. The bones reveal exaggerated upper thoracic kyphosis with vertebral body compression deformities at t he apex of the curvature unchanged since previous study. Bones appear demineralized. Bridging osteo phytic spurring of the spine is present. IMPRESSION: 1. Moderate pulmonary emphysema. No acute infiltrates. 2. There is a small focus of pleural thickening along the mediastinal pleura of the upper left lung which is stable since the recent CT although has developed since older exam in 2016. Tiny micro nodu les most which are calcified consistent with granulomas. Others are noncalcified. Consider follow-u p CT thorax in 6 months. 3. Atherosclerosis. 4. Nonspecific small mediastinal lymph nodes. 5. Stable vertebral body compression deformities at the apex of thoracic kyphosis.
[2018-09-12] MEDS: ZITHROMAX PO SCH (14:50)
[2018-09-12] MEDS: PROAIR HFA IH PRN (14:51)
[2018-09-12] MEDS: SOLU-CORTEF 250 MG IVP SCH ×2 (15:06→20:15)
[2018-09-12] MEDS: BETAPACE PO SCH (20:14)
[2018-09-12] MEDS: CARDIZEM PO SCH (20:15)
[2018-09-12] MEDS: SYMBICORT 160-4.5 MCG INHALER IH SCH (20:19)
[2018-09-13] MEDS: ELIQUIS PO SCH ×3 (01:06→20:44)
[2018-09-13] MEDS: SODIUM CHLORIDE 1,000 ML IV SCH (02:20)
[2018-09-13] MEDS: XOPENEX 1.25 MG NEB SCH ×3 (04:40→21:10)
[2018-09-13] MEDS: SOLU-CORTEF 250 MG IVP SCH ×3 (05:34→20:40)
[2018-09-13] MEDS: PROTONIX PO SCH (05:34)
[2018-09-13] MEDS ORDERED: ESOMEPRAZOLE MAGNESIUM PO SCH (09:00)
[2018-09-13] MEDS: ASPIRIN EC PO SCH ×2 (09:06→09:14)
[2018-09-13] MEDS: SYMBICORT 160-4.5 MCG INHALER IH SCH ×2 (09:06→20:39)
[2018-09-13] MEDS: BETAPACE PO SCH ×2 (09:06→20:43)
[2018-09-13] MEDS: FLOMAX PO SCH (09:07)
[2018-09-13] MEDS: ROCEPHIN 1 GM in SODIUM CHLORIDE 50 ML IV SCH (09:07)
[2018-09-13] MEDS: VITAMIN D PO SCH (09:07)
[2018-09-13] MEDS: THEOPHYLLINE ER 24HR PO SCH (09:07)
[2018-09-13] MEDS: ZITHROMAX PO SCH (09:07)
[2018-09-13] MEDS: CARDIZEM PO SCH ×2 (09:07→20:43)
[2018-09-13] MEDS: MULTIVITAMIN TABLET PO SCH (09:07)
[2018-09-13] MEDS: [UNRECOGNIZED DRUG - OTHER] PO SCH (09:08)
[2018-09-13] MEDS: COPPER PO SCH (09:08)
[2018-09-14] MEDS: XOPENEX 1.25 MG NEB SCH ×3 (04:50→21:30)
[2018-09-14] MEDS: SOLU-CORTEF 250 MG IVP SCH ×3 (05:55→21:08)
[2018-09-14] MEDS: PROTONIX PO SCH (05:56)
[2018-09-14] MEDS: THEOPHYLLINE ER 24HR PO SCH (09:37)
[2018-09-14] MEDS: MULTIVITAMIN TABLET PO SCH (09:37)
[2018-09-14] MEDS: ZITHROMAX PO SCH (09:38)
[2018-09-14] MEDS: CARDIZEM PO SCH ×2 (09:38→21:12)
[2018-09-14] MEDS: BETAPACE PO SCH ×2 (09:38→21:12)
[2018-09-14] MEDS: VITAMIN D PO SCH (09:38)
[2018-09-14] MEDS: FLOMAX PO SCH (09:38)
[2018-09-14] MEDS: PROAIR HFA IH PRN (09:39)
[2018-09-14] MEDS: ROCEPHIN 1 GM in SODIUM CHLORIDE 50 ML IV SCH (09:39)
[2018-09-14] MEDS: SYMBICORT 160-4.5 MCG INHALER IH SCH ×2 (09:39→21:11)
[2018-09-14] MEDS: [UNRECOGNIZED DRUG - OTHER] PO SCH (09:39)
[2018-09-14] MEDS: COPPER PO SCH (09:39)
[2018-09-14] MEDS: ELIQUIS PO SCH ×2 (09:40→21:13)
[2018-09-15] MEDS: XOPENEX 1.25 MG NEB SCH (05:00)
[2018-09-15 05:12] VITALS: BP 169/89; TEMP 97.6
[2018-09-15] MEDS: SOLU-CORTEF 250 MG IVP SCH (05:31)
[2018-09-15] MEDS: PROTONIX PO SCH (05:32)
[2018-09-15] MEDS ORDERED: K-DUR PO STA (08:23)
[2018-09-15] MEDS: THEOPHYLLINE ER 24HR PO SCH (08:34)
[2018-09-15] MEDS: BETAPACE PO SCH (08:34)
[2018-09-15] MEDS: VITAMIN D PO SCH (08:34)
[2018-09-15] MEDS: CARDIZEM PO SCH (08:34)
[2018-09-15] MEDS: MULTIVITAMIN TABLET PO SCH (08:35)
[2018-09-15] MEDS: FLOMAX PO SCH (08:35)
[2018-09-15] MEDS: ROCEPHIN 1 GM in SODIUM CHLORIDE 50 ML IV SCH (08:36)
[2018-09-15] MEDS: PROAIR HFA IH PRN (08:44)
[2018-09-15] MEDS: SYMBICORT 160-4.5 MCG INHALER IH SCH (08:44)
[2018-09-15] MEDS: ELIQUIS PO SCH (08:49)
--- NOTE | 2018-09-15 08:51 | HP ---
DATE OF SERVICE: 09/12/18 HISTORY OF PRESENT ILLNESS: 88-year-old male started 3-4 days prior, went to ER 09/10. Chest x-ray okay. He was put on Z-Pack - Prednisone and not any better. He is feeling worse, more short of breath and pain with coughing. PAST MEDICAL HISTORY: Asthma Atrial fib Hypertension Permanent pacemaker placement, Dr. 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 No night sweats. No malaise, lethargy. No fever or chills. HEENT: Eyes: No visual changes. No eye pain. No eye discharge. ENT: Sinus drainage. No epistaxis. No sinus pain. No sore throat. No odynophagia. No ear pain. No congestion. RESPIRATORY: No cough- yellow. No hemoptysis. No shortness of breath. CARDIOVASCULAR: No angina symptoms, no CHF symptoms and no palpitations. Pleuritic bilateral chest pain No PND. No orthopnea. GASTROINTESTINAL: No abdominal pain. No nausea or vomiting. No diarrhea or constipation. No hematemesis. No hematochezia. GENITOURINARY: No urgency. No frequency. No dysuria. No hematuria. No obstructive symptoms. No discharge. No pain. No significant abnormal bleeding. MUSCULOSKELETAL: Osteoarthritis pain. NEUROLOGICAL: No headache. No neck pain. No syncope. No seizures. No dizziness. PSYCHIATRIC: Not anxious. No depression. No suicidal thoughts. No homicidal thoughts. SKIN: Dry. No rash. No lesions. No wounds. ENDOCRINE: No unexplained weight loss. No weight gain. HEMATOLOGIC/LYMPHATIC: No anemia. No purpura. No petechiae. No prolonged or excessive bleeding. No palpable lymph nodes. PERSONAL/FAMILY/SOCIAL HISTORY: Nonsmoker. . No alcohol use. He has two children and two stepchildren. The father is . Mother . Brother two alive, one . Three sisters . MEDICATIONS: (Home) Flomax 0.4 mg one daily Theophylline 400 mg one daily Nexium 40 mg one daily Symbicort inhaler daily Albuterol HFA two puffs Betapace 80 mg one daily b.i.d. Eliquis 5 mg b.i.d. Cardizem 60 mg b.i.d. Albuterol nebs 0.083% p.r.n. Prostate vitamin ALLERGIES: CELEBREX, SULFA, TOPROL, LORTAB, MORPHINE SULFATE PHYSICAL EXAMINATION: GENERAL: The patient is oriented times three. VITAL SIGNS: Pulse 79, BP 138/84, temperature 98.1, 02 sat 95%. Height 5'11", BMI 24, Weight 172.2. HEENT: Head normocephalic, atraumatic. Eyes: Extraocular muscles are intact. Pupils are equal, round and reactive to light and accommodation. Ears: No lesions. Nose appeared normal. Throat: No exudate or erythema. NECK: Supple. No JVD, no carotid bruit. No lymphadenopathy or thyromegaly. LUNGS: Decreased breath sounds with bilateral rhonchi, expiratory wheezing. Percussion note normal. Chest symmetrical. HEART: Positive for irregular heart rate. S1, S2, no S3. No murmurs. No cyanosis or clubbing. No ascites. Pulses: Dorsalis pedis and posterior tibial pulses +1 to +2 bilaterally. ABDOMEN: Soft. Nontender. Bowel sounds active. No CVA tenderness. No mass felt. RECTAL/PROSTATE: EGD with Dr. Subramanian on 09/20. EXTREMITIES: +1 pulses. No edema. Full range of motion of all extremities, equal. NEUROLOGIC: No focal deficit. Cranial nerves II through XII are grossly intact. No headache, no double vision or headache. SKIN: Not dry. Intact. Turgor - normal. LYMPHATIC: No palpable lymph nodes/no lymphedema. MUSCULOSKELETAL: Normal joints with no swelling. Muscle tone is normal. LABS: ABGs on room air, pH 7.392, pc02 38, p02 80, base excess negative 2, bicarb 23.1 , TC02 24, 02 sat 96, sodium 139, potassium 4.31, BUN 23, creatinine 1.3, glucose 106, AST 21, ALT 14, total protein 7.07. White count 5.39, hemoglobin 13.6, hematocrit 40.9, platelets 225. ASSESSMENT: 1. ACUTE PNEUMONITIS 2. SHORTNESS OF BREATH 3. PLEURITIC PAIN 4. ASTHMA 5. ATRIAL FIBRILLATION 6. HYPERTENSION 7. PERMANENT PACEMAKER, DR. EVERETT 8. CKD 2.3 9. PAGET'S DISEASE 10. NEUROPATHY 11. HYPERGLYCEMIA PLAN: 1. Admit 2. Routine telemetry orders 3. CBC, CMP now and daily 4. ABG now 5. CT of chest without contrast 6. Solu-Cortef 125 mg IV q.8hr 7. Rocephin 1 gm IV daily 8. Zithromax 500 mg p.o. daily times three days 9. Xopenex neb treatment t.i.d. LINDA 10. Sputum culture 11. 02 @ 1-2L p.r.n. 12. Continue home medications 13. Regular diet 14. Theophylline level today 15. Toradol 30 mg IV q.8hr p.r.n. 16. NS IV @ 75/hr 17. L-Spine x-ray TIME SPENT: More than 70 minutes. MTDD
--- NOTE | 2018-09-15 08:51 | PCM.PROG ---
Attending Provider: ATTENDING PROVIDER: Dr. CHRISTOPHER HOBSON This patient is seen with Sherly Leahy, Nurse Practitioner. DATE OF SERVICE: 09/15/18 SUBJECTIVE: This 88 year old WHITE/ M was hospitalized 09/12/18. The patient is resting comfortably. His cough has significantly improved. Shortness of breath has improved. REVIEW OF SYSTEMS: CONSTITUTIONAL: No night sweats. No fatigue, malaise, lethargy. No fever or chills. HEENT: Eyes: No visual changes. No eye pain. No eye discharge. ENT: No runny nose. No epistaxis. No sinus pain. No odynophagia. No congestion. RESPIRATORY: Cough, no congestion. No hemoptysis. No shortness of breath. CARDIOVASCULAR: No angina symptoms. No CHF symptoms. No atypical chest pain for CAD. No palpitations. No orthopnea.. GASTROINTESTINAL: No abdominal pain. No nausea or vomiting. No diarrhea or constipation. No hematemesis. No hematochezia. GENITOURINARY: No urgency. No frequency. No dysuria. No hematuria. No obstructive symptoms. No discharge. No pain. No significant abnormal bleeding. MUSCULOSKELETAL: No musculoskeletal pain; no joint swelling. NEUROLOGICAL: Awake, alert, oriented to time, place and person. No headache. No neck pain. No syncope. No seizures. No dizziness. PSYCHIATRIC: Not anxious. No depression. No suicidal thoughts. No homicidal thoughts. SKIN: No rash. No lesions. No wounds. ENDOCRINE: No unexplained weight loss. No weight gain. HEMATOLOGIC/LYMPHATIC: No anemia. No purpura. No petechiae. No prolonged or excessive bleeding. No palpable lymph nodes. PHYSICAL EXAMINATION: GENERAL: The patient is awake, alert and oriented, sitting in the chair in no distress. VITAL SIGNS: Temperature 97.6 F, Pulse 74, Respiratory Rate 20, BP 169/89, Pulse Ox 93% HEENT: Head normocephalic, atraumatic. Eyes: Extraocular muscles are intact. Pupils are equal, round and reactive to light and accommodation. Ears: No lesions. Nose appeared normal. Throat: No exudate or erythema. NECK: Supple. No JVD, no carotid bruit. No lymphadenopathy or thyromegaly. LUNGS: Diminished breath sounds improved. Clear to auscultation. Percussion note normal. Chest symmetrical. HEART: S1, S2, no S3. No murmurs. No cyanosis or clubbing. No ascites. Pulses: Dorsalis pedis and posterior tibial pulses +1 to +2 both sides. ABDOMEN: Soft. Non-tender. Bowel sounds active. No CVA tenderness. No mass felt. EXTREMITIES: No edema. Full range of motion of all extremities, equal. NEUROLOGIC: No focal deficit. Cranial nerves II through XII are grossly intact. No headache, no double vision or headache. SKIN: Not dry. Intact. Turgor-normal. LYMPHATIC: No palpable lymph nodes/no lymphedema. MUSCULOSKELETAL: Normal joints with no swelling. Muscle tone is normal. LAB REVIEW: 09/15/18 05:00 09/15/18 05:00 09/15/18 05:00: Sodium 138.4, Potassium 3.34 L, Chloride 101.6, Carbon Dioxide 26.8, Anion Gap 13.34, BUN 28.5 H, Creatinine 1.13 H, Estimated GFR (MDRD) 61.00 , BUN/Creatinine Ratio 25.22, Glucose 128.5 H, Calcium 8.71, Total Bilirubin 0.24, AST 20.1, ALT 18.8, Alkaline Phosphatase 61.6, Total Protein 6.41, Albumin 3.52, Globulin 2.89, Albumin/Globulin Ratio 1.21 09/15/18 05:00: WBC 10.54 H, RBC 4.36 L, Hgb 13.2 L, Hct 39.6 L, MCV 90.8, MCH 30.3, MCHC 33.3, RDW Coeff of Elizabeth 12.9, Plt Count 245, Immature Gran % (Auto) 0.6, Neut % (Auto) 84.9, Lymph % (Auto) 9.6 L, [place] % (Auto) 4.8, Eos % (Auto) 0.0, Baso % (Auto) 0.1, Immature Gran # (Auto) 0.1, Neut # (Auto) 9.0 H, Lymph # (Auto) 1.0, [place] # (Auto) 0.5, Eos # (Auto) 0.0, Baso # (Auto) 0.0 ASSESSMENT: Please see below. 1. Shortness of breath, resolved 2. Pleuritic pain, resolved 3. Acute pneumonitis, improving 4. Severe COPD PLAN: 1. Discharge home today 2. Script for Xopenex three times a day 3. Omnicef 300mg twice a day 4. Prednisone 10mg two tablet twice a day for three days one tablet twice a day for four days and then on tablet daily for three days 5. Potassium 40meq once Plan and coordination of the patient's care discussed in the presence of [facility] and nurse. SCRIBED BY: KRISHNA CHAMPAGNE [employer] scribed while in presence of service performed by Dr. Hobson/Sheryl Leahy APRN on 09/15/18 ([id number])
[2018-09-15] MEDS: [UNRECOGNIZED DRUG - OTHER] PO SCH (09:18)
[2018-09-15] MEDS: COPPER PO SCH (09:18)
--- NOTE | 2018-09-15 10:20 | CM.DICTOOL ---
ADMISSION: 09/12/18 11:08 DISCHARGE: SEPTEMBER 15, 2018 DATE OF SERVICE: 09/15/18 FINAL DIAGNOSIS ACUTE PNEUMONITIS PLEURITIC PAIN BRONCHIAL ASTHMA HYPERTENSION ATRIAL FIBRILLATION CHRONIC KIDNEY DISEASE, STAGE 2-3 PAGETS DISEASE NEUROPATHY HYPERGLYCEMIA HISTORY OF TOBACCO USE, STOPPED 1987 COMPRESSION DEFORMITY, L1 PACEMAKER INSERTION, DR. ALEX (2011) CATARACT EXTRACTION, 2009 AND 2012 RIGHT HIP REPLACEMENT, 2012 CHOLECYSTECTOMY, 2011 MELANOMA REMOVED, LEFT EAR 2010 INGUINAL HERNIA REPAIR X 3 COLONOSCOPY, POLYP REMOVED 2007 LAST VITALS Temp Pulse Resp BP Pulse Ox 97.6 F 74 20 169/89 H 93 L 09/15/18 05:10 09/15/18 05:10 09/15/18 05:10 09/15/18 05:10 09/15/18 05:10 TAKE THESE MEDICATIONS AT HOME Albuterol Sulfate (Proair Hfa) 2 puff IH DAILY PRN PRN Reason: shortness of air Last Admin: 09/14/18 09:39 Dose: 2 puff Apixaban (Eliquis) 5 mg PO BID [facility] Last Admin: 09/15/18 08:49 Dose: 5 mg Budesonide/Formoterol Fumarate (Symbicort 160-4.5 Mcg Inhaler) 2 puff IH BID [facility] Last Admin: 09/15/18 08:44 Dose: 2 puff Cholecalciferol (Vitamin D) 2,000 unit PO QAM [facility] Last Admin: 09/15/18 08:34 Dose: 2,000 unit Diltiazem HCl (Cardizem) 60 mg PO BID [facility] Last Admin: 09/15/18 08:34 Dose: 60 mg Levalbuterol HCl (Xopenex 1.25 Mg) 1 vial NEB RTTID [facility] Last Admin: 09/15/18 05:00 Dose: 1 vial Multivitamins (Multivitamin Tablet) 1 tab PO DAILY [facility] Last Admin: 09/15/18 08:35 Dose: 1 tab Non-Formulary Medication (Zinc Mth/Copper/Saw Palm/Gnsg [Prostate Health Formula Sftgel]) 1 cap PO DAILY [facility] Last Admin: 09/15/18 09:18 Dose: Not Given Pantoprazole Sodium (Protonix) 40 mg PO QDAC [facility] Last Admin: 09/15/18 05:32 Dose: 40 mg Sotalol HCl (Betapace) 80 mg PO BID [facility] Last Admin: 09/15/18 08:34 Dose: 80 mg Tamsulosin HCl (Flomax) 0.4 mg PO DAILY [facility] Last Admin: 09/15/18 08:35 Dose: 0.4 mg Theophylline (Theophylline Er 24hr) 400 mg PO DAILY [facility] Last Admin: 09/15/18 08:34 Dose: 400 mg OMNICEF 300 MG BID X 7 DAYS PREDNISONE 10 MG BID 2 TABS BID FOR 3 DAYS, THEN 1 BID FOR 4 DAYS, THEN 1 DAILY FOR 3 DAYS ALLERGIES morphine Allergy (Severe, Verified 09/10/18 15:27) "Retricts breathing" alprazolam [From Xanax] Adverse Reaction (Intermediate, Verified 09/10/18 15:27) hallucinations aspirin Adverse Reaction (Mild, Verified 09/10/18 15:27) Abdominal Pain Sulfa (Sulfonamide Antibiotics) Adverse Reaction (Unknown, Verified 09/10/18 15: 27) Unknown celecoxib [From Celebrex] Adverse Reaction (Verified 09/10/18 15:27) Unknown ketorolac [From Toradol] Adverse Reaction (Verified 09/12/18 16:37) metoprolol [From Toprol XL] Adverse Reaction (Verified 09/10/18 15:27) Unknown DISCONTINUED MEDICATIONS ALBUTEROL NEBS (IF XOPENEX COVERED BY INSURANCE) NEW PRESCRIPTIONS: OMNICEF 300 MG BID FOR 7 DAYS PREDNISONE 10 MG TAKE 2 TABS BID FOR 3 DAYS, THEN 1 TAB BID FOR 4 DAYS, THEN 1 TAB DAILY XOPENEX 1.25 MG TID VIA NEBULIZER TREATMENT SMOKING: NOT APPLICABLE DISEASE SPECIFIC EDUCATION: ACUTE PNEUMONITIS STEROID USE AND SIDE EFFECTS NEBULIZER APPOINTMENT LAB REVIEW: 09/15/18 05:00 09/15/18 05:00 09/15/18 05:00: Sodium 138.4, Potassium 3.34 L, Chloride 101.6, Carbon Dioxide 26.8, Anion Gap 13.34, BUN 28.5 H, Creatinine 1.13 H, Estimated GFR (MDRD) 61.00 , BUN/Creatinine Ratio 25.22, Glucose 128.5 H, Calcium 8.71, Total Bilirubin 0.24, AST 20.1, ALT 18.8, Alkaline Phosphatase 61.6, Total Protein 6.41, Albumin 3.52, Globulin 2.89, Albumin/Globulin Ratio 1.21 09/15/18 05:00: WBC 10.54 H, RBC 4.36 L, Hgb 13.2 L, Hct 39.6 L, MCV 90.8, MCH 30.3, MCHC 33.3, RDW Coeff of Elizabeth 12.9, Plt Count 245, Immature Gran % (Auto) 0.6, Neut % (Auto) 84.9, Lymph % (Auto) 9.6 L, [place] % (Auto) 4.8, Eos % (Auto) 0.0, Baso % (Auto) 0.1, Immature Gran # (Auto) 0.1, Neut # (Auto) 9.0 H, Lymph # (Auto) 1.0, [place] # (Auto) 0.5, Eos # (Auto) 0.0, Baso # (Auto) 0.0 PLAN: DISCHARGE HOME DIET: TOLERATED ACTIVITY: RESUME TOLERATED CONTINUE TO USE NEBULIZER TREATMENTS EVERY 8 HOURS OR THREE TIMES A DAY IF YOU ELECT NOT TO FILL XOPENEX YOU MAY CONTINUE TO USE ALBUTEROL NEBS EVERY 8 HOURS NEEDED AN APPOINTMENT IS SCHEDULED WITH DR. HOBSON ON AT 1:30 PM MR. PFEIFFER IS ALERT AND ORIENTED X 3. HE IS HARD OF HEARING, BUT WEARS BILATERAL HEARING AIDES. HE IS INDEPEDENT WITH ACTIVITIES OF DAILY LIVING. MR. PFEIFFER IS INDEPENDENT WITH TRANSFERS AND AMBULATION. HE DOES NOT USE AN ASSISTIVE DEVICE WITH AMBULATION. MEAL INTAKES ARE GOOD AT 100%. MR. PFEIFFER IS CONTINENT OF URINE AND BOWEL. SKIN IS INTACT AND FREE OF DECUBITUS ULCERS. HE WILL BE FOLLOWED IN THE OFFICE BY DR. HOBSON/ELIZABETH SHAW APRN. LIVES WITH HIS , MARISA. SHE IS AWARE AND AGREEABLE WITH DISCHARGE PLANS. CHRISTOPHER HOBSON MD ELIZABETH SHAW APRN
--- NOTE | 2018-09-15 13:44 | PN ---
DATE OF SERVICE: 09/13/18 SUBJECTIVE: The patient was seen and examined today. He has improved some. He is breathing better, no wheezing practically audible without stethoscope. REVIEW OF SYSTEMS: CONSTITUTIONAL: No night sweats. No fatigue, malaise, lethargy. No fever or chills. HEENT: Eyes: No visual changes. No eye pain. No eye discharge. ENT: No runny nose. No epistaxis. No sinus pain. No sore throat. No odynophagia. No congestion. RESPIRATORY: Mild cough and congestion. No hemoptysis. No shortness of breath. CARDIOVASCULAR: No angina symptoms. No CHF symptoms. No atypical chest pain for CAD. No palpitations. No PND. No orthopnea. GASTROINTESTINAL: No abdominal pain. No nausea or vomiting. No diarrhea or constipation. No hematemesis. No hematochezia. GENITOURINARY: No urgency. No frequency. No dysuria. No hematuria. No obstructive symptoms. No discharge. No pain. No significant abnormal bleeding. MUSCULOSKELETAL: No musculoskeletal pain; no joint swelling. NEUROLOGICAL: No headache. No neck pain. No syncope. No seizures. No dizziness. PSYCHIATRIC: Not anxious. No depression. No suicidal thoughts. No homicidal thoughts. SKIN: No rash. No lesions. No wounds. ENDOCRINE: No unexplained weight loss. No weight gain. HEMATOLOGIC/LYMPHATIC: No anemia. No purpura. No petechiae. No prolonged or excessive bleeding. No palpable lymph nodes. PHYSICAL EXAMINATION: HEENT: Head normocephalic, atraumatic. Eyes: Extraocular muscles are intact. Pupils are equal, round and reactive to light and accommodation. Ears: No lesions. Nose appeared normal. Throat: No exudate or erythema. NECK: Supple. No JVD, no carotid bruit. No lymphadenopathy or thyromegaly. LUNGS: Mild expiratory wheeze. Clear to auscultation. Percussion note normal. Chest symmetrical. HEART: S1, S2, no S3. No murmurs. No cyanosis or clubbing. No ascites. Pulses: Dorsalis pedis and posterior tibial pulses +2 bilaterally. ABDOMEN: Soft. Nontender. Bowel sounds active. No CVA tenderness. No mass felt. EXTREMITIES: No edema. Full range of motion of all extremities, equal. NEUROLOGIC: No focal deficit. Cranial nerves II through XII are grossly intact. No headache, no double vision or headache. SKIN: Not dry. Intact. Turgor - normal. LYMPHATIC: No palpable lymph nodes/no lymphedema. MUSCULOSKELETAL: Normal joints with no swelling. Muscle tone is normal. ASSESSMENT: 1. Acute asthmatic bronchitis, improving PLAN: 1. Continue antibiotics, steroids and NEBS 2. His is in the room 3. The patient is also advised to join pulmonary rehab 4. His BMI is ideal 25, advised to keep up with high protein, high carbohydrate diet. 5. Blood pressure borderline. TIME SPENT: More than 30 minutes. Plan and coordination of the patient's care discussed in the presence of nurse. CORTEZ
--- NOTE | 2018-09-15 13:48 | PN ---
DATE OF SERVICE: 09/14/18 SUBJECTIVE: 89 year old white male hospitalized with acute asthmatic bronchitis. His condition has improved remarkably. He feels a lot better, coughing much less. REVIEW OF SYSTEMS: CONSTITUTIONAL: No night sweats. No fatigue, malaise, lethargy. No fever or chills. HEENT: Eyes: No visual changes. No eye pain. No eye discharge. ENT: No runny nose. No epistaxis. No sinus pain. No sore throat. No odynophagia. No congestion. RESPIRATORY: No cough, no congestion. No hemoptysis. No shortness of breath. CARDIOVASCULAR: No angina symptoms. No CHF symptoms. No atypical chest pain for CAD. No palpitations. No PND. No orthopnea. GASTROINTESTINAL: No abdominal pain. No nausea or vomiting. No diarrhea or constipation. No hematemesis. No hematochezia. GENITOURINARY: No urgency. No frequency. No dysuria. No hematuria. No obstructive symptoms. No discharge. No pain. No significant abnormal bleeding. MUSCULOSKELETAL: No musculoskeletal pain; no joint swelling. NEUROLOGICAL: No headache. No neck pain. No syncope. No seizures. No dizziness. PSYCHIATRIC: Not anxious. No depression. No suicidal thoughts. No homicidal thoughts. SKIN: No rash. No lesions. No wounds. ENDOCRINE: No unexplained weight loss. No weight gain. HEMATOLOGIC/LYMPHATIC: No anemia. No purpura. No petechiae. No prolonged or excessive bleeding. No palpable lymph nodes. PHYSICAL EXAMINATION: VITAL SIGNS: Temperature 97.6, pulse 70, respiratory rate 18, blood pressure 155/88 and pulse ox 92%. HEENT: Head normocephalic, atraumatic. Eyes: Extraocular muscles are intact. Pupils are equal, round and reactive to light and accommodation. Ears: No lesions. Nose appeared normal. Throat: No exudate or erythema. NECK: Supple. No JVD, no carotid bruit. No lymphadenopathy or thyromegaly. LUNGS:Decreased breath sound and no wheeze. Clear to auscultation. Percussion note normal. Chest symmetrical. HEART: S1, S2, no S3. No murmurs. No cyanosis or clubbing. No ascites. Pulses: Dorsalis pedis and posterior tibial pulses +1 to +2 bilaterally. ABDOMEN: Soft. Nontender. Bowel sounds active. No CVA tenderness. No mass felt. EXTREMITIES: No edema. Full range of motion of all extremities, equal. NEUROLOGIC: No focal deficit. Cranial nerves II through XII are grossly intact. No headache, no double vision or headache. SKIN: Not dry. Intact. Turgor - normal. LYMPHATIC: No palpable lymph nodes/no lymphedema. MUSCULOSKELETAL: Normal joints with no swelling. Muscle tone is normal. LABS: Hgb 12.9, hct 38, WB [id number],700 normal differential, creatinine 1.1, BUN 29, Potassium 3.9. ASSESSMENT: 1. Acute asthmatic bronchitis 2. Chronic lung disease 3. Pacemaker 4. Hypertension PLAN: 1. Continue the same treatment with IV fluids, IV steroids, NEBS and antibiotics 2. The patient is advised to walk up and about 3. Again pulmonary rehab discussed. CONDITION: Improved. TIME SPENT: More than 30 minutes. Plan and coordination of the patient's care discussed in the presence of nurse. CORTEZ
--- NOTE | 2018-09-15 13:54 | PN ---
DATE OF SERVICE: 09/15/18 SUBJECTIVE: The patient was seen and examined with Nurse Practitioner. The patient's condition has improved. Bronchitis has resolved, asthma has resolved, no wheezing practically. Discharge home. CONDITION: Stable TIME SPENT: More than 30 minutes. Plan and coordination of the patient's care discussed in the presence of nurse. CORTEZ
--- NOTE | 2018-09-15 13:55 | PN ---
09/12/18: Level 5 09/13/18: Intermediate 09/14/18: Intermediate 09/15/18: D as in discharge MTDD
--- NOTE | 2018-09-16 07:58 | DS ---
DATE OF SERVICE: 09/15/18 FINAL DIAGNOSIS: 1. ACUTE PNEUMONITIS 2. PLEURITIC PAIN 3. BRONCHIAL ASTHMA 4. HYPERTENSION 5. ATRIAL FIBRILLATION 6. 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 NEUROPATHY 9. HYPERGLYCEMIA 10. HISTORY OF TOBACCO USE, STOPPED 1987 11. COMPRESSION DEFORMITY, L1 12. PACEMAKER INSERTION, DR. ALEX (2011) 13. CATARACT EXTRACTION, 2009 AND 2012 14. RIGHT HIP REPLACEMENT, 2012 15. CHOLECYSTECTOMY, 2011 16. MELANOMA REMOVED, LEFT EAR 2009 17. INGUINAL HERNIA REPAIR TIMES THREE 18. COLONOSCOPY, POLYP REMOVED 2007 LAST VITAL SIGNS: Temperature 97.6, pulse 74, respiratory rate 20, BP 169/89H, pulse ox 93L DISCHARGE INSTRUCTIONS: 1. Followup appointment is scheduled with Dr. Darnell on Saturday, September 22 at 1:30 p.m. 2. Continue to use nebulizer treatments every 8 hours or three times a day. If you elect not to fill Xopenex, you may continue to use Albuterol nebs every 8 hours as needed. MEDICATIONS AT DISCHARGE: Albuterol two puff IH daily p.r.n. Eliquis 5 mg p.o. b.i.d. LINDA Symbicort 160-4.5 mcg inhaler two puff IH b.i.d. LINDA Cholecalciferol 2,000 units p.o. q.a.m. LINDA Cardizem 60 mg p.o. b.i.d. LINDA Xopenex 1.25 mg NEB RT t.i.d. LINDA Multivitamin one tab p.o. daily FORMERLY [facility], 1928–1983 Nonformulary medication (Zinc Mth/copper/saw palm/Gnsg (prostate health formula [employer] [facility]) one cap p.o. daily LINDA Pantoprazole 40 mg p.o. q.d a.c. LINDA Sotalol (Betapace) 80 mg p.o. b.i.d. LINDA Flomax 0.4 mg p.o. daily LINDA Theophylline 400 mg p.o. daily LINDA Omnicef 300 mg b.i.d. times 7 days Prednisone 10 mg b.i.d. two tabs b.i.d. for 3 days, then one b.i.d. for four days, then one daily for three days DISCONTINUED MEDICATIONS: Albuterol nebs (if Xopenex covered by insurance) NEW PRESCRIPTIONS: Omnicef 300 mg b.i.d. for 7 days Prednisone 10 mg take two tabs b.i.d. for three days, then one tab b.i.d. for four days, then one tab daily Xopenex 1.25 mg t.i.d. via nebulizer treatment DIET INSTRUCTIONS: As tolerated ACTIVITY: Resume as tolerated SMOKING: N/A DISEASE SPECIFIC EDUCATION: Acute pneumonitis Steroid use and side effects Nebulizer Appointment HOSPITAL COURSE: This is a white male who was a direct admit from our office with acute pneumonitis, pleuritic pain and shortness of breath. Chest CT revealed changes associated with bronchitis. No acute pneumonia. He had been started on a Z-pack from the emergency room two days prior. He was feeling worse, more short of breath, unable to walk in the office without being short of breath, not sleeping , running low grade fever. He was admitted, placed on Rocephin 1 gm IV daily along with IV Solu-Cortef 125 mg IV q.8hr. He was started on Xopenex t.i.d. Over the course of the next few days, his pleuritic pain began to improve. His shortness of breath steadily improved. He feels that he responds better to the Xopenex so we are going to give him a prescription to take at home. He has a history of atrial fibrillation and is on Eliquis. Rate has remained controlled during his hospitalization. Vital signs have all been normal. He was requiring oxygen initially. On admission today, he is sitting up, has been up going to the bathroom, not short of breath, not wearing his oxygen. He has responded remarkably well. We will send him home with a prescription for Omnicef 300 mg p.o. b.i.d. times 7 days along with Prednisone 10 mg two tabs b.i.d. for 3 days , then one tab b.i.d. for 4 days then one daily for three days. He does have cough medicine at home if he needs it. Will give him a prescription for the Xopenex to do t.i.d. with the nebulizer. He has Symbicort inhaler to do at home. Will followup with him in the office next week. TIME SPENT: More than 60 minutes. CORTEZ
== END 2018-09-15 10:57 | disposition home or self-care (01) | DRG 203 ==
LOC: MEDSURG A 11:08
PROVIDERS: ADMIT Internal Medicine; ATTEND Internal Medicine
DX: J20.9 Acute bronchitis, unspecified (principal); J44.9 Chronic obstructive pulmonary disease, unspecified; J45.909 Unspecified asthma, uncomplicated; I10 Essential (primary) hypertension; I48.91 Unspecified atrial fibrillation; N18.2 Chronic kidney disease, stage 2 (mild); M88.9 Osteitis deformans of unspecified bone; G62.9 Polyneuropathy, unspecified; R07.81 Pleurodynia; R73.9 Hyperglycemia, unspecified; R06.02 Shortness of breath
CPT/HCPCS: 36415; 80053; 80198; 81001; 82550; 82803; 84484; 85025; 87070; 93005; 93010; 94640

== ENCOUNTER 2018-12-25 12:44 | Inpatient (IN) ==
[2018-12-25] MEDS ORDERED: SOLU-MEDROL 125 MG 125 MG in SODIUM CHLORIDE 50 ML IV SCH (13:30)
[2018-12-25 13:38] VITALS: BMI 23.8
[2018-12-25] MEDS ORDERED: NITROSTAT SL PRN (13:39)
[2018-12-25] MEDS ORDERED: ATROPINE SULFATE PFS IVP PRN (13:39)
[2018-12-25] MEDS: DUONEB NEB SCH ×2 (14:12→19:30)
--- NOTE | 2018-12-25 14:20 | DI ---
EXAM: Chest one view HISTORY: Shortness of air COMPARISON: 09/10/2018 TECHNIQUE: Single view of the chest was performed FINDINGS: Left-sided cardiac pacer. Heart top normal in size. Mediastinal contour normal, noting a therosclerosis. No visible pneumothorax. No definite consolidation. No large pleural effusion. Emp hysematous change. IMPRESSION: 1. No definite acute cardiopulmonary process. 2. Emphysema.
[2018-12-25] MEDS ORDERED: PROAIR HFA IH PRN (14:31)
[2018-12-25] MEDS: SOLU-CORTEF 250 MG IVP SCH ×2 (14:50→20:43)
[2018-12-25] MEDS: ROCEPHIN 1 GM in SODIUM CHLORIDE 50 ML IV SCH (14:50)
[2018-12-25] MEDS: CARDIZEM PO SCH (20:42)
[2018-12-25] MEDS: BETAPACE PO SCH (20:42)
[2018-12-25] MEDS: COZAAR PO SCH (20:43)
[2018-12-25] MEDS: SYMBICORT 160-4.5 MCG INHALER IH SCH (20:44)
[2018-12-25] MEDS: ELIQUIS PO SCH (20:44)
[2018-12-26] MEDS ORDERED: PROTONIX ONE (04:08)
[2018-12-26] MEDS: DUONEB NEB SCH ×4 (05:04→19:45)
[2018-12-26] MEDS: SOLU-CORTEF 250 MG IVP SCH (05:44)
[2018-12-26] MEDS: PROTONIX PO SCH (05:45)
--- NOTE | 2018-12-26 08:54 | PCM.PROG ---
Attending Provider: ATTENDING PROVIDER: Dr. CHRISTOPHER HOBSON DATE OF SERVICE: 12/26/18 SUBJECTIVE: This 88 year old WHITE/ M was hospitalized 12/25/18 with acute asthmatic bronchitis and shortness of breath on minimal exertion. His condition has improved remarkably and feeling a lot better. He has been coughing a lot with white foamish sputum. Pacemaker is capturing and functioning well. REVIEW OF SYSTEMS: CONSTITUTIONAL: No night sweats. No fatigue, malaise, lethargy. No fever or chills. HEENT: Eyes: No visual changes. No eye pain. No eye discharge. ENT: No runny nose. No epistaxis. No sinus pain. No odynophagia. No congestion. RESPIRATORY: Cough, Congestion. No hemoptysis. No shortness of breath. Breathing better. Talking sentences now without stopping. CARDIOVASCULAR: No angina symptoms. No CHF symptoms. No atypical chest pain for CAD. No palpitations. No orthopnea.. GASTROINTESTINAL: No abdominal pain. No nausea or vomiting. No diarrhea or constipation. No hematemesis. No hematochezia. GENITOURINARY: No urgency. No frequency. No dysuria. No hematuria. No obstructive symptoms. No discharge. No pain. No significant abnormal bleeding. MUSCULOSKELETAL: No musculoskeletal pain; no joint swelling. Walking on his own. NEUROLOGICAL: Awake, alert, oriented to time, place and person. No headache. No neck pain. No syncope. No seizures. No dizziness. PSYCHIATRIC: Not anxious. No depression. No suicidal thoughts. No homicidal thoughts. SKIN: No rash. No lesions. No wounds. ENDOCRINE: No unexplained weight loss. No weight gain. HEMATOLOGIC/LYMPHATIC: No anemia. No purpura. No petechiae. No prolonged or excessive bleeding. No palpable lymph nodes. PHYSICAL EXAMINATION: GENERAL: The patient is awake, alert and oriented, sitting in bed in no distress. VITAL SIGNS: Temperature 97.6 F, Pulse 70, Respiratory Rate 18, BP 156/89, Pulse Ox 96% HEENT: Head normocephalic, atraumatic. Eyes: Extraocular muscles are intact. Pupils are equal, round and reactive to light and accommodation. Ears: No lesions. Nose appeared normal. Throat: No exudate or erythema. NECK: Supple. No JVD, no carotid bruit. No lymphadenopathy or thyromegaly. LUNGS: Decreased breath sounds, good aur entry Clear to auscultation. Percussion note normal. Chest symmetrical. HEART: S1, S2, no S3. No murmurs. No cyanosis or clubbing. No ascites. Pulses: Dorsalis pedis and posterior tibial pulses +1 to +2 both sides. ABDOMEN: Soft. Non-tender. Bowel sounds active. No CVA tenderness. No mass felt. EXTREMITIES: No edema. Full range of motion of all extremities, equal. NEUROLOGIC: No focal deficit. Cranial nerves II through XII are grossly intact. No headache, no double vision or headache. SKIN: Warm and dry. Intact. Turgor-normal. LYMPHATIC: No palpable lymph nodes/no lymphedema. MUSCULOSKELETAL: Normal joints with no swelling. Muscle tone is normal. LAB REVIEW: 12/26/18 04:30 12/26/18 04:30 12/26/18 04:30: Sodium 137.1, Potassium 3.89, Chloride 100.3, Carbon Dioxide 26.0, Anion Gap 14.69, BUN 24.7 H, Creatinine 1.09, Estimated GFR (MDRD) 64.00, BUN/Creatinine Ratio 22.66, Glucose 147.8 H D, Calcium 9.36, Total Bilirubin 0.56, AST 26.8, ALT 17.7, Alkaline Phosphatase 82.9, Total Protein 7.10, Albumin 4.31, Globulin 2.79, Albumin/Globulin Ratio 1.54 12/26/18 04:30: WBC 5.90, RBC 4.42 L, Hgb 13.7 L, Hct 41.0 L, MCV 92.8, MCH 31.0 , MCHC 33.4, RDW Coeff of Elizabeth 12.4, Plt Count 266, Immature Gran % (Auto) 0.2, Neut % (Auto) 82.3, Lymph % (Auto) 13.6, [place] % (Auto) 3.7, Eos % (Auto) 0.0, Baso % (Auto) 0.2, Immature Gran # (Auto) 0.0, Neut # (Auto) 4.9, Lymph # (Auto ) 0.8, [place] # (Auto) 0.2 L, Eos # (Auto) 0.0, Baso # (Auto) 0.0 12/25/18 21:48: Total Creatine Kinase 62.5, Troponin I < 0.012 12/25/18 14:50: Urine Color Yellow, Urine Clarity Clear, Urine pH 6.5, Ur Specific [place] 1.020, Urine Protein 2+, Urine Glucose (UA) Negative, Urine Ketones Negative, Urine Blood Trace-intact, Urine Nitrite Negative, Urine Bilirubin Negative, Urine Urobilinogen 0.2, Ur Leukocyte Esterase Negative, Urine Microscopic RBC 0-2, Urine Microscopic WBC 0-2, Ur Squamous Epith Cells Not present 12/25/18 14:00: Sodium 136.4, Potassium 3.80, Chloride 102.1, Carbon Dioxide 28.0, Anion Gap 10.10, BUN 23.8 H, Creatinine 1.22 H, Estimated GFR (MDRD) 56.00 , BUN/Creatinine Ratio 19.50, Glucose 97.7, Calcium 8.99, Total Bilirubin 0.54, AST 22.3, ALT 14.3, Alkaline Phosphatase 77.0, Total Creatine Kinase 61.2, Troponin I < 0.012, Total Protein 6.68, Albumin 3.98, Globulin 2.70, Albumin/ Globulin Ratio 1.47, TSH 1.540 12/25/18 14:00: WBC 5.56, RBC 3.98 L, Hgb 12.7 L, Hct 37.3 L, MCV 93.7, MCH 31.9 H, MCHC 34.0, RDW Coeff of Elizabeth 12.9, Plt Count 220, Immature Gran % (Auto) 0.2, Neut % (Auto) 61.7, Lymph % (Auto) 20.1, [place] % (Auto) 12.9 H, Eos % (Auto ) 4.9, Baso % (Auto) 0.2, Immature Gran # (Auto) 0.0, Neut # (Auto) 3.4, Lymph # (Auto) 1.1, [place] # (Auto) 0.7, Eos # (Auto) 0.3, Baso # (Auto) 0.0 12/25/18 13:30: Puncture Site R rad, O2 Saturation 96.0, ABG pH 7.400, ABG pCO2 36.7, ABG pO2 81.0 L, ABG HCO3 22.7, ABG Total CO2 24, ABG Base Excess -2, Tommie Test +, FiO2 % 21.0 ASSESSMENT: Please see below. 1. Acute asthmatic bronchitis seems to be resolving NEBs and steroids. PLAN: 1. Continue same management. Plan and coordination of the patient's care discussed in the presence of Ecmo Specialist and nurse. SCRIBED BY: Marlena ALFREDO scribed while in presence of service performed by Dr. CHRISTOPHER HOBSON on 12/26/18 ([id number])
[2018-12-26] MEDS ORDERED: ESOMEPRAZOLE MAGNESIUM PO SCH (09:00)
[2018-12-26] MEDS: COZAAR PO SCH ×2 (09:18→20:50)
[2018-12-26] MEDS: CARDIZEM PO SCH ×2 (09:19→20:49)
[2018-12-26] MEDS: THEOPHYLLINE ER 24HR PO SCH (09:19)
[2018-12-26] MEDS: BETAPACE PO SCH ×2 (09:19→20:49)
[2018-12-26] MEDS: FLOMAX PO SCH (09:19)
[2018-12-26] MEDS: ELIQUIS PO SCH ×2 (09:20→20:49)
[2018-12-26] MEDS: VITAMIN D PO SCH (09:22)
[2018-12-26] MEDS: ASPIRIN EC PO SCH (09:23)
[2018-12-26] MEDS: MULTIVITAMIN TABLET PO SCH (09:23)
[2018-12-26] MEDS: ROCEPHIN 1 GM in SODIUM CHLORIDE 50 ML IV SCH (09:24)
[2018-12-26] MEDS: SYMBICORT 160-4.5 MCG INHALER IH SCH ×2 (10:29→20:48)
--- NOTE | 2018-12-26 13:24 | HP ---
DATE OF SERVICE: 12/25/18 REASON FOR HOSPITALIZATION/HISTORY OF PRESENT ILLNESS: 88 year old white male hospitalized with shortness of breath with little exertion for few weeks and getting worse. The patient is on NEBS several times a day and Symbicort twice a day. He is take all medications. The patient has had weakness and could not get up today. He has had sweating and no symptoms of CAD. PAST MEDICAL HISTORY: Asthma Atrial fibrillation Hypertension YOSHI- Dr. Figueroa Chronic kidney disease 2-3 Paget's disease Neuropathy Hyperglycemia Acute pneumonitis Shortness of breath Pleuritic pain PAST SURGICAL HISTORY: Gallbladder Right hip replacement Pacemaker Three hernia surgery REVIEW OF SYSTEMS: CONSTITUTIONAL: No fever, Fatigue. HEENT: No sinus drainage, no sore throat. RESPIRATORY: Cough, no congestion. CARDIOVASCULAR: No atypical chest pain for coronary artery disease. No angina , CHF symptoms, palpitations. Shortness of breath with little exertion. GASTROINTESTINAL: No melena or abdominal pain. No GERD. GENITOURINARY: No hematuria, no prostatism, no polyuria. MATERIAL WORKER: No blackout, Dizziness, no headache, no double vision. MUSCULOSKELETAL: Osteoarthritis pain, no joint swelling. ENDOCRINE: No weight loss, no weight gain. SKIN: Not dry, no rash. PSYCHIATRIC: Anxious, no depression, no suicidal thoughts, no homicidal thoughts. SOCIAL HISTORY: Marital Status:. Alcohol Usage: No. Tobacco Usage: No. FAMILY HISTORY: Father Mother Brother 2 alive 1 Sister 3 MEDICATIONS: Flomax 0.4mg PO daily Theophylline 400mg PO daily Nexium 40mg PO daily Symbicort inhaler Albuterol HFA two puffs Betapace 80mg PO twice a day Eliquis 5mg PO twice a day Cardizem 60mg PO twice a day DUO NEBS for nebulizer Losartan 50mg PO twice a day ALLERGIES: Celebrex Sulfa Toprol Lortab Morphine Sulfate PHYSICAL EXAMINATION: V/S: Pulse 74, blood pressure 120/62, Temperature 98, pulse ox 95%. Height 5'11 , weight 175.4 and BMI 24.5. GENERAL APPEARANCE: Oriented times three. HEENT: Normal. NECK: No JVP, no bruits. RESPIRATORY: Decreased breath sounds with dry creps. CARDIOVASCULAR: S1, S2, no S3, no murmurs. No cyanosis, clubbing. No ascites. GI/ABDOMEN: No tenderness. Bowel sounds are active. EXTREMITIES: edema, pulses +1, equal. MATERIAL WORKER: Deep tendon reflexes, sensory, motor and gait all normal. RECTAL: 2-16 Dr. Subramanian, EGD . ASSESSMENT: 1. Acute bronchitis 2. Acute exacerbation of COPD 3. Asthmatic bronchitis 4. Asthma 5. Atrial fibrillation 6. Hypertension 7. PPM- Dr. Figueroa 8. Chronic kidney disease, 2-3 9. Paget's disease 10.Neuropathy 11.Hyperglycemia PLAN: 1. Admit 2. Routine Telemetry orders 3. 125mg IV Solu-Cortef Now and 8 hours 4. DUO NEBS now and four times a day 5. Rocephin 1 gram IV piggy back now and QAM 6. ABG now 7. Oxygen 2 liters cannula 8. TSH 9. Sputum for culture and sensitivity 10.Pro BNP TIME SPENT: More than 70 minutes. MTDD
[2018-12-26] MEDS: SOLU-CORTEF 100 MG IVP SCH ×2 (15:19→20:48)
[2018-12-26] MEDS: COPPER PO SCH (16:03)
[2018-12-26] MEDS: [UNRECOGNIZED DRUG - OTHER] PO SCH (16:03)
[2018-12-27] MEDS: DUONEB NEB SCH ×2 (04:50→09:15)
[2018-12-27 05:16] VITALS: TEMP 97.5
[2018-12-27] MEDS: SOLU-CORTEF 100 MG IVP SCH (05:44)
[2018-12-27] MEDS: PROTONIX PO SCH (05:44)
[2018-12-27] MEDS: SYMBICORT 160-4.5 MCG INHALER IH SCH (08:35)
[2018-12-27] MEDS: FLOMAX PO SCH (08:36)
[2018-12-27] MEDS: ASPIRIN EC PO SCH (08:36)
[2018-12-27] MEDS: COZAAR PO SCH (08:36)
[2018-12-27] MEDS: BETAPACE PO SCH (08:37)
[2018-12-27] MEDS: CARDIZEM PO SCH (08:37)
[2018-12-27] MEDS: ROCEPHIN 1 GM in SODIUM CHLORIDE 50 ML IV SCH (08:37)
[2018-12-27] MEDS: VITAMIN D PO SCH (08:37)
[2018-12-27] MEDS: THEOPHYLLINE ER 24HR PO SCH (08:37)
[2018-12-27] MEDS: MULTIVITAMIN TABLET PO SCH (08:37)
[2018-12-27] MEDS: ELIQUIS PO SCH (08:38)
[2018-12-27] MEDS: COPPER PO SCH (08:38)
[2018-12-27] MEDS: [UNRECOGNIZED DRUG - OTHER] PO SCH (08:38)
[2018-12-27 09:08] VITALS: BP 158/84
[2018-12-27] MEDS ORDERED: PREDNISONE PO SCH (12:00)
[2018-12-27] MEDS ORDERED: OMNICEF PO SCH (21:00)
[2018-12-28] MEDS ORDERED: PREDNISONE PO SCH (08:00)
[2018-12-28] MEDS ORDERED: OMNICEF PO SCH (09:00)
--- NOTE | 2018-12-30 12:16 | ECHO2D ---
Date of Exam: 12/27/18 Ordering Physician: DR. CHRISTOPHER HOBSON Room #: 101 Reason for Echo: SOB, EVALUATE LEFT VENTRICLE FUNCTION, HTN, PACEMAKER M-Mode Normal Adult Results LV Dimensions Normal Adult Results AoV Opening excursions >1.6 >1.6 LVEDD-base- 3.5-5.8 4.5 Ao root dimensions 2.0-3.7 3.9 LVESD-base- 3.1-4.6 L. Atrium dimensions 1.9-3.8 4.4 Post. Wall thickness 0.8-1.1 1.3 IV septum (thickness) 0.7-1.2 1.3 Post. Wall excursion 0.72-1.3 NORMAL Septal motion NORMAL Systolic motion R. Ventricular cavity 1.5-2.0 3.0 LVEF 60% 59% Paradoxical septal wall motion NORMAL 2-D : 2-D M Mode Echocardiogram was performed using apical four chamber and left parasternal long and short axis views. Mitral, tricuspid and aortic valves appear to be normal. Contractility of the left ventricle seems to be normal, so is the cavity size. ENLARGED LEFT ATRIAL CAVITY. Aortic root appears to be normal. There is no pericardial effusion. There is no thrombus noted in the left ventricular or left aortic cavity. No mitral valve prolapse noted. M-MODE: MV: NORMAL AV: NORMAL TV: NORMAL PV: CHAMBER SIZE: ENLARGED LEFT ATRIAL CAVITY, ENLARGED RIGHT VENTRICLE CAVITY WALL MOTION: NORMAL PERICARDIUM: NORMAL INTERPRETATION: 1. LEFT VENTRICULAR HYPERTROPHY WITH ENLARGED LEFT ATRIAL CAVITY 2. NORMAL VALVES 3. NORMAL LEFT VENTRICULAR CONTRACTILITY 4. ENLARGED RIGHT VENTRICLE CAVITY MTDD
--- NOTE | 2019-01-05 13:20 | DS ---
DATE OF SERVICE: 12/27/18 FINAL DIAGNOSIS: 1. ACUTE ASTHMATIC BRONCHITIS 2. SEVERE CHRONIC LUNG DISEASE 3. PACEMAKER PLACEMENT 4. HYPERTENSION 5. DYSLIPIDEMIA DISCHARGE INSTRUCTIONS: Followup appointment either Saturday or 12/31 or 01/01/19 of next week. MEDICATIONS AT DISCHARGE: Nexium 40 mg one tab p.o. daily Theophylline 400 mg one tab p.o. daily Tamsulosin 0.4 mg one tab p.o. daily Zinc Mth/Copper/Saw Palm/Gnsg one cap p.o. daily Multivitamin one p.o. daily Albuterol two puff IH q.4-6H p.r.n Cholecalciferol 2,000 unit p.o. q.a.m. Budesonide/Formoterol Fumarate two puff INH b.i.d. p.r.n. Sotalol 80 mg p.o. b.i.d. Eliquis 5 mg p.o. b.i.d. Diltiazem 60 mg p.o. b.i.d. Losartan 50 mg p.o. b.i.d. Ipratropium/Albuterol neb RT b.i.d. NEW PRESCRIPTIONS: Omnicef 300 mg p.o. b.i.d. times 7 days Prednisone 10 mg p.o. daily times 8 days Aspirin 81 mg p.o. daily with meal DISCONTINUED MEDICATIONS: None DIET INSTRUCTIONS: Heart Healthy ACTIVITY: Resume as tolerated. SMOKING: N/A DISEASE SPECIFIC EDUCATION: Acute asthmatic bronchitis Steroid use and side effects Followup appointment Medications at discharge HOSPITAL COURSE: 88-year-old white male hospitalized after being seen in the office with respiratory distress. The patient's air entry is very poor. He was extremely short of breath with minimal exertion. The had found him laying on the grass extremely pale. He was unable to get up. He had inhaled some fumes from the mower. The patient was treated with IV steroids, nebs treatment, antibiotics. His condition improved. In two days he was up and about without any help. No distress. His lung had good air entry. The echo showed right ventricular cavity enlargement. No paradoxical septal wall motion. LV contractility is normal with LVH. The patient's condition at time of discharge is stable. The patient was discharged on Omnicef and Prednisone. The side effects of Prednisone including avascular necrosis of the femoral bone discussed with him. Condition at time of discharge, stable. The patient is to be seen in followup within 3 to 4 days either Saturday or . TIME SPENT: More than 60 minutes. CORTEZ
--- NOTE | 2019-01-05 13:22 | PN ---
BILLING 12/25/18 ADMISSION DAY LEVEL 5 12/26/18 INTERMEDIATE 12/27/18 DISCHARGE MTDD
--- NOTE | 2019-01-05 13:30 | PN ---
DATE OF SERVICE: 12/27/18 SUBJECTIVE: The patient is an 88-year-old white male hospitalized through the office with acute asthmatic bronchitis. The patient's condition has improved remarkably. He is up and about talking full sentences without stopping. The is in the room and he wants to go home. PHYSICAL EXAMINATION: VITAL SIGNS: Temperature 97.5, pulse 69, respiratory rate 22, blood pressure 158/84, pulse ox 95%. HEENT: Head normocephalic, atraumatic. Eyes: Extraocular muscles are intact. Pupils are equal, round and reactive to light and accommodation. Ears: No lesions. Nose appeared normal. Throat: No exudate or erythema. NECK: Supple. No JVD, no carotid bruit. No lymphadenopathy or thyromegaly. LUNGS: Decreased breath sounds but good air entry. No wheezing. Percussion note normal. Chest symmetrical. HEART: S1, S2, no S3. No murmurs. No cyanosis or clubbing. No ascites. Pulses: Dorsalis pedis and posterior tibial pulses +1 to +2 bilaterally. ABDOMEN: Soft. Nontender. Bowel sounds active. No CVA tenderness. No mass felt. EXTREMITIES: No edema. Full range of motion of all extremities, equal. NEUROLOGIC: No focal deficit. Cranial nerves II through XII are grossly intact. No headache, no double vision or headache. SKIN: Not dry. Intact. Turgor - normal. LYMPHATIC: No palpable lymph nodes/no lymphedema. MUSCULOSKELETAL: Normal joints with no swelling. Muscle tone is normal. LABS: Hemoglobin 12.2, hematocrit 34, WBC 11,800, normal differential. Creatinine 1.1 , BUN 35. ASSESSMENT: 1. ACUTE ASTHMATIC BRONCHITIS HAS RESOLVED. PLAN: 1. Discharge the patient home. 2. Advised to avoid outside temperatures of more than 85 with high humidity. 3. Exercise is discussed, advised to join pulmonary rehab. CONDITION: Stable. TIME SPENT: More than 30 minutes. Plan and coordination of the patient's care discussed in the presence of nurse. CORTEZ
== END 2018-12-27 12:25 | disposition home or self-care (01) | DRG 192 ==
LOC: UNDOADMIN 12:44 → MEDSURG A 12:44
PROVIDERS: ADMIT Internal Medicine; ATTEND Internal Medicine
DX: J44.1 Chronic obstructive pulmonary disease with (acute) exacerbation (principal); E78.5 Hyperlipidemia, unspecified; J45.909 Unspecified asthma, uncomplicated; I10 Essential (primary) hypertension; I48.91 Unspecified atrial fibrillation; N18.2 Chronic kidney disease, stage 2 (mild); G62.9 Polyneuropathy, unspecified; R73.9 Hyperglycemia, unspecified; R06.02 Shortness of breath; R53.1 Weakness; Z79.01 Long term (current) use of anticoagulants
CPT/HCPCS: 36415; 80053; 80198; 81001; 82550; 82803; 83880; 84443; 84484; 85025; 87070; 93005; 93010; 94640

== ENCOUNTER 2019-01-21 12:37 | Outpatient (CLI) | END 2019-01-21 12:38 | disposition home or self-care (01) | LOC: CAR 12:37 | PROVIDERS: ATTEND Internal Medicine | DX: R06.02 Shortness of breath (principal) | CPT/HCPCS: 94761 ==

== ENCOUNTER 2019-03-23 11:11 | Inpatient (IN) ==
[2019-03-23] MEDS ORDERED: VISTARIL INJ IM PRN (11:44)
[2019-03-23] MEDS ORDERED: NITROSTAT SL PRN (11:44)
[2019-03-23] MEDS ORDERED: ATROPINE SULFATE PFS IVP PRN (11:44)
[2019-03-23] MEDS ORDERED: SYMBICORT 160-4.5 MCG INHALER IH PRN (11:54)
[2019-03-23] MEDS ORDERED: PROAIR HFA IH PRN (11:54)
[2019-03-23] MEDS ORDERED: ESOMEPRAZOLE MAGNESIUM PO SCH (12:00)
[2019-03-23 12:02] VITALS: BMI 23.9
[2019-03-23] MEDS: XOPENEX 1.25 MG NEB SCH ×3 (12:47→23:05)
--- NOTE | 2019-03-23 14:13 | DI ---
EXAM: Chest two views HISTORY: Shortness of breath FINDINGS: Compared to 12/25/2018. Prominent heart size is again noted. There is atherosclerotic di sease and ectasia of the thoracic aorta. Left-sided pacemaker unit is stable. Lungs are mildly hype rinflated. No acute infiltrates are seen. No vascular congestion. There is no consolidation, visib le pleural fluid or pneumothorax. Bones reveal no acute fracture. IMPRESSION: Hyperinflation. No acute cardiopulmonary process.
[2019-03-23] MEDS: DEXTROSE 5%-1/2NS IV SOLUTION 1,000 ML IV SCH (14:23)
[2019-03-23] MEDS: PROTONIX PO SCH ×2 (14:23→17:01)
--- NOTE | 2019-03-23 16:07 | CT ---
EXAM: CT abdomen pelviswith and without contrast HISTORY: GI bleed COMPARISON: 03/20/2016 TECHNIQUE: CT abdomen pelvis performed with and without intravenous contrast. Coronal and sagittal reformatted images obtained. FINDINGS: Emphysematous change lung bases. Mild bibasilar subsegmental atelectasis and/or scarring. Right hip arthroplasty. No acute abnormalities of the bones. Degenerative change in the spine. M ild to moderate chronic compression deformity L1. Heart top normal in size. Cardiac pacer. Liver a ppears normal. Patient status post cholecystectomy. Pancreas unremarkable. Granulomas calcificatio n in the spleen. Spleen otherwise unremarkable. Adrenals unremarkable. No hydronephrosis or nephro lithiasis. No hydronephrosis. 4 mm nonobstructing left renal calculus. Right renal cyst. Minimal lobulation right superior kidney is unchanged from 2013, aorta normal in caliber. Extensive calcifie d and noncalcified atherosclerosis. Bladder partially obscured secondary to streak artifact from hip arthroplasty. Prostate region is obscured. No lymphadenopathy or ascites. Small hiatal hernia. P ossible wall thickening of the stomach versus may be accentuated by underdistension. Scattered fluid -filled loops small bowel, may represent mild enteritis.. No dilated loops small bowel. Appendix ap pears normal. Colon unremarkable. IMPRESSION: 1. No bowel or urinary obstruction. Normal appendix. 2. Possible mild enteritis. Recommend clinical correlation. 3. Possible wall thickening of the stomach that may be accentuated by underdistension, nonspecific. 4. Left nephrolithiasis. No hydronephrosis. 5. Extensive calcified and noncalcified atherosclerosis. 6. Nuclear medicine GI bleeding scan can be considered for further evaluation as clinically indicate d.
[2019-03-23] MEDS: TYLENOL PO PRN (17:08)
[2019-03-23] MEDS ORDERED: DUONEB NEB SCH (18:00)
[2019-03-23] MEDS: CARDIZEM PO SCH (20:11)
[2019-03-23] MEDS: BETAPACE PO SCH (20:11)
[2019-03-23] MEDS: COZAAR PO SCH (20:11)
[2019-03-24] MEDS: DEXTROSE 5%-1/2NS IV SOLUTION 1,000 ML IV SCH ×2 (01:35→16:44)
[2019-03-24] MEDS: XOPENEX 1.25 MG NEB SCH ×4 (04:45→22:50)
[2019-03-24] MEDS: PROTONIX PO SCH ×2 (07:05→17:07)
[2019-03-24] MEDS ORDERED: ASPIRIN EC PO SCH (08:00)
--- NOTE | 2019-03-24 08:03 | PCM.PROG ---
Attending Provider: ATTENDING PROVIDER: Dr. CHRISTOPHER HOBSON DATE OF SERVICE: 03/24/19 SUBJECTIVE: This 89 year old WHITE/ M was hospitalized 03/23/19 with GI bleed. The patient's hgb yesterday on admission was 9.1 and today it is 8.0 partially could be due to hemodilution and GI bleed. Eliquis and baby aspirin as been stopped. The patient had mild abdominal discomfort on admission but doesn't have any at present time. REVIEW OF SYSTEMS: CONSTITUTIONAL: No night sweats. No fatigue, malaise, lethargy. No fever or chills. HEENT: Eyes: No visual changes. No eye pain. No eye discharge. ENT: No runny nose. No epistaxis. No sinus pain. No odynophagia. No congestion. RESPIRATORY: No cough, no congestion. No hemoptysis. No shortness of breath. CARDIOVASCULAR: No angina symptoms. No CHF symptoms. No atypical chest pain for CAD. No palpitations. No orthopnea.. GASTROINTESTINAL: No abdominal pain. No nausea or vomiting. No diarrhea or constipation. No hematemesis. No hematochezia. GENITOURINARY: No urgency. No frequency. No dysuria. No hematuria. No obstructive symptoms. No discharge. No pain. No significant abnormal bleeding. MUSCULOSKELETAL: No musculoskeletal pain; no joint swelling. NEUROLOGICAL: Awake, alert, oriented to time, place and person. No headache. No neck pain. No syncope. No seizures. No dizziness. PSYCHIATRIC: Not anxious. No depression. No suicidal thoughts. No homicidal thoughts. SKIN: No rash. No lesions. No wounds. ENDOCRINE: No unexplained weight loss. No weight gain. HEMATOLOGIC/LYMPHATIC: No anemia. No purpura. No petechiae. No prolonged or excessive bleeding. No palpable lymph nodes. PHYSICAL EXAMINATION: GENERAL: The patient is awake, alert and oriented, lying in bed in no distress. VITAL SIGNS: Temperature 97.8 F, Pulse 70, Respiratory Rate 18, BP 139/82, Pulse Ox 98% HEENT: Head normocephalic, atraumatic. Eyes: Extraocular muscles are intact. Pupils are equal, round and reactive to light and accommodation. Ears: No lesions. Nose appeared normal. Throat: No exudate or erythema. NECK: Supple. No JVD, no carotid bruit. No lymphadenopathy or thyromegaly. LUNGS: Clear to auscultation. Percussion note normal. Chest symmetrical. HEART: S1, S2, no S3. No murmurs. No cyanosis or clubbing. No ascites. Pulses: Dorsalis pedis and posterior tibial pulses +1 to +2 both sides. ABDOMEN: Soft. Non-tender. Bowel sounds active. No CVA tenderness. No mass felt. EXTREMITIES: No edema. Full range of motion of all extremities, equal. NEUROLOGIC: No focal deficit. Cranial nerves II through XII are grossly intact. No headache, no double vision or headache. SKIN: Warm and dry. Intact. Turgor-normal. LYMPHATIC: No palpable lymph nodes/no lymphedema. MUSCULOSKELETAL: Normal joints with no swelling. Muscle tone is normal. LAB REVIEW: 03/24/19 04:45 03/24/19 04:45 03/24/19 04:45: Sodium 134.9, Potassium 4.14, Chloride 105.3, Carbon Dioxide 25.7, Anion Gap 8.04, BUN 36.7 H, Creatinine 1.25 H, Estimated GFR (MDRD) 54.00 , BUN/Creatinine Ratio 29.36, Glucose 123.8 H, Calcium 8.41, Total Bilirubin 0.38, AST 20.4, ALT 13.2, Alkaline Phosphatase 51.9 L, Total Protein 5.76 L, Albumin 3.39 L, Globulin 2.37, Albumin/Globulin Ratio 1.43 03/24/19 04:45: WBC 5.13, RBC 2.53 L, Hgb 8.0 L, Hct 24.5 L, MCV 96.8 H, MCH 31.6 H, MCHC 32.7, RDW Coeff of Elizabeth 13.6, Plt Count 206, Immature Gran % (Auto) 0.4, Neut % (Auto) 58.9, Lymph % (Auto) 22.0, [place] % (Auto) 12.3 H, Eos % (Auto ) 5.8, Baso % (Auto) 0.6, Immature Gran # (Auto) 0.0, Neut # (Auto) 3.0, Lymph # (Auto) 1.1, [place] # (Auto) 0.6, Eos # (Auto) 0.3, Baso # (Auto) 0.0 03/23/19 19:50: Total Creatine Kinase 42.1 L, Troponin I < 0.012 03/23/19 14:35: Urine Color Yellow, Urine Clarity Clear, Urine pH 5.5, Ur Specific [place] 1.015, Urine Protein 1+, Urine Glucose (UA) Negative, Urine Ketones Negative, Urine Blood Trace-intact, Urine Nitrite Negative, Urine Bilirubin Negative, Urine Urobilinogen 0.2, Ur Leukocyte Esterase Negative, Urine Microscopic RBC 2-5, Ur Squamous Epith Cells Not present 03/23/19 12:00: Puncture Site R brach, O2 Saturation 97.0, ABG pH 7.438, ABG pCO2 28.7 L, ABG pO2 82.0 L, ABG HCO3 19.4 L, ABG Total CO2 20 L, ABG Base Excess -5 L, [place] Test +, FiO2 % 21.0 03/23/19 11:55: Sodium 136.2, Potassium 4.29, Chloride 107.2 H, Carbon Dioxide 21.8 L, Anion Gap 11.49, BUN 43.6 H, Creatinine 1.28 H, Estimated GFR (MDRD) 53.00, BUN/Creatinine Ratio 34.06, Glucose 103.8, Calcium 8.79, Total Bilirubin 0.40, AST 27.3, ALT 14.4, Alkaline Phosphatase 64.0, Total Creatine Kinase 57.9 , Troponin I < 0.012, Total Protein 6.49, Albumin 3.83, Globulin 2.66, Albumin/ Globulin Ratio 1.43 03/23/19 11:55: WBC 6.44, RBC 2.80 L, Hgb 9.1 L, Hct 26.6 L, MCV 95.0 H, MCH 32.5 H, MCHC 34.2, RDW Coeff of Elizabeth 13.2, Plt Count 238, Immature Gran % (Auto) 0.3, Neut % (Auto) 59.9, Lymph % (Auto) 21.3, [place] % (Auto) 13.5 H, Eos % (Auto ) 4.5, Baso % (Auto) 0.5, Immature Gran # (Auto) 0.0, Neut # (Auto) 3.9, Lymph # (Auto) 1.4, [place] # (Auto) 0.9, Eos # (Auto) 0.3, Baso # (Auto) 0.0 ASSESSMENT: Please see below. 1. GI bleed with anemia 2. Atrial fibrillation 3. Pacemaker 4. Severe chronic lung disease with asthma 5. Hypertension PLAN: 1. Discontinue Aspirin and Eliquis 2. Type and cross match two units 3. Transfuse one unit EDWIN 4. Order Nuclear GI bleed scan with RBC's 5. Continue IV hydration 6. Monitor oxygen saturation Plan and coordination of the patient's care discussed in the presence of Computer Numerical Control Machinist and nurse. CONDITION: Stable SCRIBED BY: Marlena ALFREDO scribed while in presence of service performed by Dr. CHRISTOPHER HOBSON on 03/24/19 ([id number])
[2019-03-24] MEDS: COZAAR PO SCH ×2 (08:49→20:11)
[2019-03-24] MEDS: BETAPACE PO SCH ×2 (08:49→20:12)
[2019-03-24] MEDS: THEOPHYLLINE ER 24HR PO SCH (08:49)
[2019-03-24] MEDS: CARDIZEM PO SCH ×2 (08:49→20:12)
[2019-03-24] MEDS: FLOMAX PO SCH (08:49)
--- NOTE | 2019-03-24 12:11 | NM ---
EXAM: GI bleeding study HISTORY GI bleed. Blood in stool for 4 days. Low hemoglobin. COMPARISON: None of this type. CT 03/23/2019. PROCEDURE:The the patient was injected with 22 mCi of 99m technetium UltraTag labeled autologous red blood cells. A dynamic study was performed over the abdomen and pelvis anterior projection followed by sequential imaging of the abdomen and pelvis for 1 hour . FINDINGS: The examination demonstrates a normal distribution of activity in the major vessels and org an blood pool. No active bleeding into the gastrointestinal tract is demonstrated during the examina tion. IMPRESSION: 1. The examination demonstrates a normal distribution of activity in large vessels and organ blood p ool. 2. No active bleeding into the gastrointestinal tract is demonstrated during the examination.
--- NOTE | 2019-03-24 14:49 | HP ---
DATE OF SERVICE: 03/23/19 REASON FOR HOSPITALIZATION/HISTORY OF PRESENT ILLNESS: 89 year old white male hospitalized with dark stools, black times three days and weakness. The patient has had nausea for several days. No symptoms of CHF/ CAD. He has shortness of breath with exertion more than usual. His appetite is not good. PAST MEDICAL HISTORY: Hypertension Bronchitis Chronic kidney disease stage 2-3 Hyperglycemia Paget's disease Cervical radiculopathy Permanent Pacemaker PAST SURGICAL HISTORY: Hernia Hip right replacement Gallbladder Pacemaker times two REVIEW OF SYSTEMS: CONSTITUTIONAL: No fever, no fatigue. HEENT: No sinus drainage, no sore throat. RESPIRATORY: No cough, no congestion. CARDIOVASCULAR: No atypical chest pain for coronary artery disease. No angina , CHF symptoms, palpitations. Shortness of breath. bad lately. GASTROINTESTINAL: No melena or abdominal pain. No GERD. GENITOURINARY: No hematuria, no prostatism, no polyuria. COMMERCIAL AGENT: No blackout, no dizziness, no headache, no double vision. MUSCULOSKELETAL: Osteoarthritis pain, no joint swelling. ENDOCRINE: Weight loss- 3 pounds in 7 days, no weight gain. SKIN: Not dry, no rash. PSYCHIATRIC: Not anxious, no depression, no suicidal thoughts, no homicidal thoughts. SOCIAL HISTORY: Marital Status: . Alcohol Usage: No. Tobacco Usage: No. FAMILY HISTORY: Father Mother Brother 3 Sister 3 MEDICATIONS: Flomax 0.4mg daily Theophylline 400mg PO daily Nexium 40mg daily Symbicort inhaler Albuterol HFA two puffs PRN Betapace 80mg PO twice a day Eliquis 5mg PO twice a day Cardizem 60mg PO twice a day DUO NEBS Losartan 50mg twice a day ALLERGIES: Celebrex Sulfa Toprol Lortab Morphine PHYSICAL EXAMINATION: V/S: Pulse 74, blood pressure 140/84, temperature 97.7, Oxygen saturation 98%. Heigh 5'11, BMI 24.2, weight 173.8. GENERAL APPEARANCE: Oriented times three. HEENT: Normal. NECK: No JVP, no bruits. RESPIRATORY: Decreased breath sounds. CARDIOVASCULAR: S1, S2, no S3, no murmurs. No cyanosis, clubbing. No ascites. GI/ABDOMEN: No tenderness. Bowel sounds are active. EXTREMITIES: edema, pulses +1, equal. COMMERCIAL AGENT: Deep tendon reflexes, sensory, motor and gait all normal. RECTAL: Dr. Subramanian 09/20 ASSESSMENT: 1. Dark stools 2. GI stools 3. Loss of appetite 4. History of bronchitis 5. Asthma bronchial 6. Atrial fibrillation status post cardioversion 09/22 7. Hypertension 8. Permanent Pacemaker, Dr. Figueroa 9. Chronic kidney disease, stage 2-3 10.Paget's disease 11.Neuropathy 12.Hyperglycemia 13.Cervical radiculopathy 14.Status post AA with cervical spine fracture ribs. PLAN: 1. Admit 2. Routine telemetry orders 3. Stool for occult blood times three 4. Daily CBC and CMP 5. ABG 6. Continue all medications (home) 7. Hold Eliquis 8. Protonix 40mg PO twice a day 9. CT scan do abdomen and pelvis without contrast 10.1000cc D5 1/2 normal saline 12 hourly 11.Xopenex four times a day TIME SPENT: More than 70 minutes. MTDD
[2019-03-24] MEDS: TYLENOL PO PRN (15:45)
[2019-03-24] MEDS: CARAFATE PO SCH ×2 (17:07→20:12)
[2019-03-25] MEDS: XOPENEX 1.25 MG NEB SCH ×4 (04:30→21:15)
[2019-03-25] MEDS: PROTONIX PO SCH ×2 (05:52→16:28)
[2019-03-25] MEDS: CARAFATE PO SCH ×4 (05:53→20:21)
[2019-03-25] MEDS ORDERED: LOVENOX SUBCUT ONE (08:05)
[2019-03-25] MEDS ORDERED: ULTRAM PO STA (08:06)
--- NOTE | 2019-03-25 08:36 | PCM.PROG ---
Attending Provider: ATTENDING PROVIDER: Dr. CHRISTOPHER HOBSON DATE OF SERVICE: 03/25/19 SUBJECTIVE: This 89 year old WHITE/ M was hospitalized 03/23/19 with GI bleed. The patients hgb dropped from 12 to 8. He was symptomatic with shortness of breath, poor appetite and fatigue. The patient has been taking Advil 3-4 times a day along with Eliquis which he was instructed not to do. REVIEW OF SYSTEMS: CONSTITUTIONAL: No night sweats. No fatigue, malaise, lethargy. No fever or chills. HEENT: Eyes: No visual changes. No eye pain. No eye discharge. ENT: No runny nose. No epistaxis. No sinus pain. No odynophagia. No congestion. RESPIRATORY: No cough, no congestion. No hemoptysis. No shortness of breath. CARDIOVASCULAR: No angina symptoms. No CHF symptoms. No atypical chest pain for CAD. No palpitations. No orthopnea.. GASTROINTESTINAL: No abdominal pain. No nausea or vomiting. No diarrhea or constipation. No hematemesis. No hematochezia. GENITOURINARY: No urgency. No frequency. No dysuria. No hematuria. No obstructive symptoms. No discharge. No pain. No significant abnormal bleeding. MUSCULOSKELETAL: No musculoskeletal pain; no joint swelling. NEUROLOGICAL: Awake, alert, oriented to time, place and person. No headache. No neck pain. No syncope. No seizures. No dizziness. PSYCHIATRIC: Not anxious. No depression. No suicidal thoughts. No homicidal thoughts. SKIN: No rash. No lesions. No wounds. ENDOCRINE: No unexplained weight loss. No weight gain. HEMATOLOGIC/LYMPHATIC: No anemia. No purpura. No petechiae. No prolonged or excessive bleeding. No palpable lymph nodes. PHYSICAL EXAMINATION: GENERAL: The patient is awake, alert and oriented, sitting in bed in no distress. VITAL SIGNS: Temperature 97.6 F, Pulse 72, Respiratory Rate 18, BP 135/77, Pulse Ox 100% HEENT: Head normocephalic, atraumatic. Eyes: Extraocular muscles are intact. Pupils are equal, round and reactive to light and accommodation. Ears: No lesions. Nose appeared normal. Throat: No exudate or erythema. NECK: Supple. No JVD, no carotid bruit. No lymphadenopathy or thyromegaly. LUNGS: Clear to auscultation. Percussion note normal. Chest symmetrical. HEART: S1, S2, no S3. No murmurs. No cyanosis or clubbing. No ascites. Pulses: Dorsalis pedis and posterior tibial pulses +1 to +2 both sides. ABDOMEN: Soft. Non-tender. Bowel sounds active. No CVA tenderness. No mass felt. EXTREMITIES: No edema. Full range of motion of all extremities, equal. NEUROLOGIC: No focal deficit. Cranial nerves II through XII are grossly intact. No headache, no double vision or headache. SKIN: Warm and dry. Intact. Turgor-normal. Color looks normal. LYMPHATIC: No palpable lymph nodes/no lymphedema. MUSCULOSKELETAL: Normal joints with no swelling. Muscle tone is normal. LAB REVIEW: 03/25/19 05:02 03/25/19 05:02 03/25/19 05:02: Sodium 137.5, Potassium 4.07, Chloride 106.0, Carbon Dioxide 26.6, Anion Gap 8.97, BUN 28.9 H, Creatinine 1.39 H, Estimated GFR (MDRD) 48.00 , BUN/Creatinine Ratio 20.79, Glucose 111.3 H, Calcium 9.16, Total Bilirubin 0.60, AST 21.7, ALT 14.2, Alkaline Phosphatase 63.3, Total Protein 6.65, Albumin 3.99, Globulin 2.66, Albumin/Globulin Ratio 1.50 03/25/19 05:02: WBC 5.66, RBC 3.46 L, Hgb 11.0 L, Hct 32.5 L, MCV 93.9, MCH 31.8 H, MCHC 33.8, RDW Coeff of Elizabeth 15.0 H, Plt Count 227, Immature Gran % (Auto ) 0.2, Neut % (Auto) 61.0, Lymph % (Auto) 19.6, [place] % (Auto) 12.5 H, Eos % ( Auto) 6.2, Baso % (Auto) 0.5, Immature Gran # (Auto) 0.0, Neut # (Auto) 3.5, Lymph # (Auto) 1.1, [place] # (Auto) 0.7, Eos # (Auto) 0.4, Baso # (Auto) 0.0 03/24/19 20:13: Hgb 10.2 L, Hct 30.2 L 03/24/19 09:50: Stl Occult Blood (IFOB) Positive, Stool Occult Blood #2 No specimen received, Stool Occult Blood #3 No specimen received 03/24/19 08:20: Blood Type O POSITIVE, Antibody Screen Negative, Crossmatch (AHG ) See Detail 03/24/19 04:45: Blood Type O POSITIVE ASSESSMENT: Please see below. 1. GI bleed, resolved likely gastric superficial ulceration and gastritis. 2. Chronic lung disease 3. Generalized osteoarthritis 4. Hypertension PLAN: 1. Tramadol 50mg and see how he response 2. Lovenox 75mg. 3. Advised to avoid non-steroidal anti- 4. May start Eliquis tomorrow 5. continue Protonix and Carafate. Plan and coordination of the patient's care discussed in the presence of Salesperson Surgical Appliances and nurse. CONDITION: Stable SCRIBED BY: Marlena ALFREDO scribed while in presence of service performed by Dr. CHRISTOPHER HOBSON on 03/25/19 ([id number])
[2019-03-25] MEDS: CARDIZEM PO SCH ×2 (08:58→20:21)
[2019-03-25] MEDS: THEOPHYLLINE ER 24HR PO SCH (08:58)
[2019-03-25] MEDS: COZAAR PO SCH ×2 (08:59→20:21)
[2019-03-25] MEDS: BETAPACE PO SCH ×2 (08:59→20:21)
[2019-03-25] MEDS: FLOMAX PO SCH (09:00)
--- NOTE | 2019-03-25 09:08 | DS ---
DATE OF SERVICE: 03/26/19 FINAL DIAGNOSIS: 1. GI BLEED, RESOLVED LIKELY GASTRITIS 2. ANEMIA 3. ASTHMATIC BRONCHITIS 4. ATRIAL FIBRILLATION - LOVENOX 5. HYPERTENSION 6. CHRONIC KIDNEY DISEASE, STAGE 2-3 7. HYPERGLYCEMIA 8. PAGETS DISEASE 9. 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 ALEX) 16.CATARACT EXTRACTION, 2009 AND 2012 17.RIGHT HIP REPLACEMENT, 2012 18.CHOLECYSTECTOMY, 2011 19.MELANOMA REMOVED, LEFT EAR 2009 20.INGUINAL HERNIA REPAIR X 3 21.COLONOSCOPY, POLYP REMOVED 2007.AA WITH CERVICAL SPINE FRACTURE LAST VITALS: Temp Pulse Resp BP Pulse Ox 97.7 F 72 20 125/78 91 L 03/26/19 05:18 03/26/19 07:34 03/26/19 05:18 03/26/19 07:00 03/26/19 05:18 DISCHARGE INSTRUCTIONS: DISCHARGE HOME TODAY 03/26/2019. HAVE LABS DRAWN ON SaturdayMarch PRIOR TO YOUR APPOINTMENT WITH DR. HOBSON. AN OUTPATIENT ORDER IS BEING SENT HOME WITH YOU. FOLLOW UP WITH DR. HOBSON/ELIZABETH SHAW APRN ON SaturdayMarch AT 1:15 PM. PLEASE CALL TO RESCHEDULE IF UNABLE TO KEEP APPOINTMENT. A REFERRAL FOR HOME HEALTH HAS BEEN SENT TO [facility]. NURSING VISITS FOR RESPIRATORY AND GI ASSESSMENTS, MEDICATION COMPLIANCE, VITAL SIGNS, AND LAB WORK. PLEASE DRAW A CBC WITH DIFF AND A CMP ON SaturdayMarch. PLEASE CALL THOSE RESULTS TO ELIZABETH SHAW APRN AT HIS OFFICE [phone]. OR DR. HOBSON ON HIS CELL PHONE [phone] IF ELIZABETH IS NOT IN THE OFFICE. AN APPOINTMENT HAS BEEN SCHEDULED WITH SARAH MORRISON APRN/DR. GONZALES ON MARCH 31, 2019 AT 9:30 AM.OFFICE IS LOCATED AT [address] [place] [address] IN [place], [place] PHONE NUMBER: . CODE STATUS: FULL CODE. TAKE THESE MEDICATIONS AT HOME: Albuterol Sulfate (Proair Hfa) 2 puff IH Q4-6H PRN Budesonide/Formoterol Fumarate (Symbicort 160-4.5 Mcg Inhaler) 2 puff IH BID [facility] Diltiazem HCl (Cardizem) 60 mg PO BID [facility] Ipratropium/Albuterol Neb (Duoneb) 1 vial NEB RTBID [facility] Losartan Potassium (Cozaar) 50 mg PO BID [facility] Ondansetron HCl (Zofran) 4 mg PO TID Pantoprazole Sodium (Protonix) 40 mg PO BIDAC [facility] Sotalol HCl (Betapace) 80 mg PO BID [facility] Sucralfate (Carafate) 1 gm PO ACHS [facility] Tamsulosin HCl (Flomax) 0.4 mg PO DAILY [facility] Theophylline (Theophylline Er 24hr) 400 mg PO DAILY [facility] Tramadol HCl (Ultram) 50 mg PO Q8HR [facility] ALLERGIES: morphine Allergy (Severe, Verified 09/10/18 15:27) alprazolam [From Xanax] Adverse Reaction (Intermediate, Verified 09/10/18 15:27) aspirin Adverse Reaction (Mild, Verified 09/10/18 15:27) Sulfa (Sulfonamide Antibiotics) Adverse Reaction (Unknown, Verified 09/10/18 15: 27) acetaminophen [From [place]] Adverse Reaction (Verified 12/25/18 13:47) celecoxib [From Celebrex] Adverse Reaction (Verified 09/10/18 15:27) hydrocodone [From [place]] Adverse Reaction (Verified 12/25/18 13:47) ketorolac [From Toradol] Adverse Reaction (Verified 12/25/18 13:47) metoprolol [From Toprol XL] Adverse Reaction (Verified 09/10/18 15:27) DISCONTINUED MEDICATIONS: Apixaban [Eliquis] 5 mg PO BID Esomeprazole Magnesium [Nexium]) 1 tab PO 1200 [facility]DA NEW PRESCRIPTIONS: ZOFRAN 4 MG 1 TABLET BY MOUTH THREE TIMES A DAY PROTONIX 40 MG 1 TABLET BY MOUTH TWICE A DAY BEFORE MEALS CARAFATE 1 GRAM 1 TABLET BY MOUTH ACHS LOVENOX 80 MG SQ ONE INJECTION DAILY FOR FOUR DAYS ULTRAM 50 MG 1 TABLET BY MOUTH EVERY 8 HOURS NEEDED FOR PAIN SMOKING: FORMER SMOKER DISEASE SPECIFIC EDUCATION: GI BLEED JAMIE ESPINOZA REFERRAL TO GI FOLLOW UP APPOINTMENT NO NSAIDS DIET: REGULAR; TOLERATED AVOID SPICY, GREASY FOODS ACTIVITY: UP TOLERATED HOSPITAL COURSE: 89 year old white male hospitalized on 03/23/19 with GI bleed with dark stools. The patient's hgb dropped from 12 to 8. The patient had been taking Advil 4 a day for past several weeks it was disclosed by patient and his a couple days later on after his hospitalization. The patient was symptomatic with shortness of breath, fatigue and tired feeling. The patient was given two units of packed red blood cells, hgb went up to 11 with hct of 32. The patient did not have black stools anymore nor abdominal pain. Red blood cell nuclear scan was negative for active GI bleed from large blood vessel, likely it is gastric ulcer from non-steroidal anti-inflammatory medications that he was taking along with Eliquis. CT scan of the abdomen was practically negative for any acute findings. The patient was advised to stop taking NSAIDS. He was started on Protonix and Carafate. He was put on hold for Eliquis until he is seen on Saturday on followup. Until then he is to given Lovenox 80mg daily in the morning. The patient appointment with patient portal representative on of this month. The patient is also to have CBC with differential done tomorrow by home health care and it is to be reported to my office and me. During the stay in the hospital the patient did not have any active GI bleed. He was given Tramadol to control the pain in his knees and neck. The reason the patient was given two units of packed red blood cells was because of sudden drop in hgb from 12 to 8 with symptoms of shortness of breath, fatigue and tired feeling. The patient was symptomatic with anemia. It is to be noted that patient had not lost any weight for past 8 months. He weighs the same 273 since March of 2018. The patient was instructed that if he has black stools again and any abdominal discomfort he needs to go to the nearest emergency room. CONDITION: Stable. CARDIOVASCULAR STATUS: Stable TIME SPENT: More than 60 minutes. MTDD
--- NOTE | 2019-03-25 11:52 | PN ---
03/23/19: Level 5 03/24/19: Intermediate 03/25/19: D as in discharge MTDD
[2019-03-25] MEDS ORDERED: ZOFRAN 4 MG/2 ML IVP STA (12:44)
[2019-03-25] MEDS: ULTRAM PO SCH ×2 (16:17→20:21)
[2019-03-25] MEDS: ZOFRAN 4 MG/2 ML IVP PRN (17:50)
[2019-03-25] MEDS: SYMBICORT 160-4.5 MCG INHALER IH SCH (20:21)
[2019-03-26] MEDS: XOPENEX 1.25 MG NEB SCH ×2 (04:50→11:06)
[2019-03-26] MEDS: ULTRAM PO SCH ×2 (05:35→13:16)
[2019-03-26] MEDS: CARAFATE PO SCH ×2 (05:35→11:52)
[2019-03-26] MEDS: PROTONIX PO SCH (05:35)
[2019-03-26] MEDS: CARDIZEM PO SCH (08:47)
[2019-03-26] MEDS: ZOFRAN 4 MG/2 ML IVP PRN (08:47)
[2019-03-26] MEDS: THEOPHYLLINE ER 24HR PO SCH (08:48)
[2019-03-26] MEDS: BETAPACE PO SCH (08:48)
[2019-03-26] MEDS: FLOMAX PO SCH (08:48)
[2019-03-26] MEDS: COZAAR PO SCH (08:52)
--- NOTE | 2019-03-26 08:53 | PCM.PROG ---
Attending Provider: ATTENDING PROVIDER: Dr. CHRISTOPHER HOBSON DATE OF SERVICE: 03/26/19 SUBJECTIVE: This 89 year old WHITE/ M was hospitalized 03/23/19 with GI bleed. The patient's condition is stable. HGB and HCT is stable. The patient had nausea yesterday which resolved after a couple of hours. Stools have been normal. Appetite is normal. REVIEW OF SYSTEMS: CONSTITUTIONAL: No night sweats. No fatigue, malaise, lethargy. No fever or chills. HEENT: Eyes: No visual changes. No eye pain. No eye discharge. ENT: No runny nose. No epistaxis. No sinus pain. No odynophagia. No congestion. RESPIRATORY: No cough, no congestion. No hemoptysis. No shortness of breath. CARDIOVASCULAR: No angina symptoms. No CHF symptoms. No atypical chest pain for CAD. No palpitations. No orthopnea.. GASTROINTESTINAL: No abdominal pain. No nausea or vomiting. No diarrhea or constipation. No hematemesis. No hematochezia. GENITOURINARY: No urgency. No frequency. No dysuria. No hematuria. No obstructive symptoms. No discharge. No pain. No significant abnormal bleeding. MUSCULOSKELETAL: No musculoskeletal pain; no joint swelling. NEUROLOGICAL: Awake, alert, oriented to time, place and person. No headache. No neck pain. No syncope. No seizures. No dizziness. PSYCHIATRIC: Not anxious. No depression. No suicidal thoughts. No homicidal thoughts. SKIN: No rash. No lesions. No wounds. ENDOCRINE: No unexplained weight loss. No weight gain. HEMATOLOGIC/LYMPHATIC: No anemia. No purpura. No petechiae. No prolonged or excessive bleeding. No palpable lymph nodes. PHYSICAL EXAMINATION: GENERAL: The patient is awake, alert and oriented, sitting in the chair in no distress. VITAL SIGNS: Temperature 97.7 F, Pulse 72, Respiratory Rate 20, BP 125/78, Pulse Ox 91% HEENT: Head normocephalic, atraumatic. Eyes: Extraocular muscles are intact. Pupils are equal, round and reactive to light and accommodation. Ears: No lesions. Nose appeared normal. Throat: No exudate or erythema. NECK: Supple. No JVD, no carotid bruit. No lymphadenopathy or thyromegaly. LUNGS: Clear to auscultation. Percussion note normal. Chest symmetrical. HEART: S1, S2, no S3. No murmurs. No cyanosis or clubbing. No ascites. Pulses: Dorsalis pedis and posterior tibial pulses +1 to +2 both sides. ABDOMEN: Soft. Non-tender. Bowel sounds active. No CVA tenderness. No mass felt. EXTREMITIES: No edema. Full range of motion of all extremities, equal. NEUROLOGIC: No focal deficit. Cranial nerves II through XII are grossly intact. No headache, no double vision or headache. SKIN: Warm and dry. Intact. Turgor-normal. LYMPHATIC: No palpable lymph nodes/no lymphedema. MUSCULOSKELETAL: Normal joints with no swelling. Muscle tone is normal. LAB REVIEW: 03/26/19 05:04 03/26/19 05:04 03/26/19 05:04: Sodium 136.2, Potassium 4.35, Chloride 105.1, Carbon Dioxide 26.6, Anion Gap 8.85, BUN 24.5 H, Creatinine 1.31 H, Estimated GFR (MDRD) 52.00 , BUN/Creatinine Ratio 18.70, Glucose 108.2 H, Calcium 9.13, Total Bilirubin 0.66, AST 20.4, ALT 13.5, Alkaline Phosphatase 66.0, Total Protein 6.10 L, Albumin 3.61, Globulin 2.49, Albumin/Globulin Ratio 1.44 03/26/19 05:04: WBC 5.60, RBC 3.23 L, Hgb 10.3 L, Hct 30.4 L, MCV 94.1 H, MCH 31.9 H, MCHC 33.9, RDW Coeff of Elizabeth 15.0 H, Plt Count 215, Immature Gran % (Auto ) 0.2, Neut % (Auto) 59.3, Lymph % (Auto) 21.3, [place] % (Auto) 13.0 H, Eos % ( Auto) 5.7, Baso % (Auto) 0.5, Immature Gran # (Auto) 0.0, Neut # (Auto) 3.3, Lymph # (Auto) 1.2, [place] # (Auto) 0.7, Eos # (Auto) 0.3, Baso # (Auto) 0.0 ASSESSMENT: Please see below. 1. History of GI bleed with no evidence of active GI bleeding anymore. PLAN: 1. Recheck hgb and hct this afternoon 2. Continue Lovenox 3. Will decide on discharge depending on hgb and hct this afternoon Plan and coordination of the patient's care discussed in the presence of Stencil Cutter Machine and nurse. CONDITION: Stable. CARDIOVASCULAR AND RESPIRATORY STATUS: Stable. SCRIBED BY: Marlena ALFREDO scribed while in presence of service performed by Dr. CHRISTOPHER HOBSON on 03/26/19 ([id number])
[2019-03-26] MEDS: SYMBICORT 160-4.5 MCG INHALER IH SCH (08:57)
[2019-03-26] MEDS ORDERED: LOVENOX SUBCUT ONE (09:00)
[2019-03-26] MEDS ORDERED: ZOFRAN 4 MG/2 ML IVP STA (13:22)
[2019-03-26 13:57] VITALS: BP 116/70; TEMP 97.8
--- NOTE | 2019-03-26 15:22 | CM.DICTOOL ---
ADMISSION: 03/23/19 11:11 DISCHARGE: March 26, 2019 DATE OF SERVICE: 03/26/19 FINAL DIAGNOSIS GI BLEED, RESOLVED LIKELY GASTRITIS ANEMIA ASTHMATIC BRONCHITIS ATRIAL FIBRILLATION - LOVENOX HYPERTENSION CHRONIC KIDNEY DISEASE, STAGE 2-3 HYPERGLYCEMIA PAGETS DISEASE NEUROPATHY CERVICAL RADICULOPATHY COMPRESSION DEFORMITY, L1 HISTORY OF TOBACCO USE, STOPPED 1987 LEFT NEPHROLITHIASIS, NON-OBSTRUCTIVE PER CT HIATAL HERNIA, SMALL PER CT PACEMAKER INSERTION, 2011 (DR. ALEX) CATARACT EXTRACTION, 2009 AND 2012 RIGHT HIP REPLACEMENT, 2012 CHOLECYSTECTOMY, 2011 MELANOMA REMOVED, LEFT EAR 2010 INGUINAL HERNIA REPAIR X 3 COLONOSCOPY, POLYP REMOVED 2007 AA WITH CERVICAL SPINE FRACTURE LAST VITALS Temp Pulse Resp BP Pulse Ox 97.7 F 72 20 125/78 91 L 03/26/19 05:18 03/26/19 07:34 03/26/19 05:18 03/26/19 07:00 03/26/19 05:18 TAKE THESE MEDICATIONS AT HOME Albuterol Sulfate (Proair Hfa) 2 puff IH Q4-6H PRN PRN Reason: Bronchospasm Budesonide/Formoterol Fumarate (Symbicort 160-4.5 Mcg Inhaler) 2 puff IH BID COUNTS INCLUDE 234 BEDS AT THE [facility] Last Admin: 03/26/19 08:57 Dose: 2 puff Diltiazem HCl (Cardizem) 60 mg PO BID COUNTS INCLUDE 234 BEDS AT THE [facility] Last Admin: 03/26/19 08:47 Dose: 60 mg Ipratropium/Albuterol Neb (Duoneb) 1 vial NEB RTBID COUNTS INCLUDE 234 BEDS AT THE [facility] Last Admin: unknown Losartan Potassium (Cozaar) 50 mg PO BID COUNTS INCLUDE 234 BEDS AT THE [facility] Last Admin: 03/26/19 08:52 Dose: 50 mg Ondansetron HCl (Zofran) 4 mg PO TID Last Admin: 03/26/19 08:47 Dose: 4 mg Pantoprazole Sodium (Protonix) 40 mg PO BIDAC COUNTS INCLUDE 234 BEDS AT THE [facility] Last Admin: 03/26/19 05:35 Dose: 40 mg Sotalol HCl (Betapace) 80 mg PO BID COUNTS INCLUDE 234 BEDS AT THE [facility] Last Admin: 03/26/19 08:48 Dose: 80 mg Sucralfate (Carafate) 1 gm PO ACHS COUNTS INCLUDE 234 BEDS AT THE [facility] Last Admin: 03/26/19 11:52 Dose: 1 gm Tamsulosin HCl (Flomax) 0.4 mg PO DAILY COUNTS INCLUDE 234 BEDS AT THE [facility] Last Admin: 03/26/19 08:48 Dose: 0.4 mg Theophylline (Theophylline Er 24hr) 400 mg PO DAILY COUNTS INCLUDE 234 BEDS AT THE [facility] Last Admin: 03/26/19 08:48 Dose: 400 mg Tramadol HCl (Ultram) 50 mg PO Q8HR COUNTS INCLUDE 234 BEDS AT THE [facility] Last Admin: 03/26/19 13:16 Dose: 50 mg ALLERGIES morphine Allergy (Severe, Verified 09/10/18 15:27) "Retricts breathing" alprazolam [From Xanax] Adverse Reaction (Intermediate, Verified 09/10/18 15:27) hallucinations aspirin Adverse Reaction (Mild, Verified 09/10/18 15:27) Abdominal Pain Sulfa (Sulfonamide Antibiotics) Adverse Reaction (Unknown, Verified 09/10/18 15: 27) Unknown acetaminophen [From [place]] Adverse Reaction (Verified 12/25/18 13:47) Unknown celecoxib [From Celebrex] Adverse Reaction (Verified 09/10/18 15:27) Unknown hydrocodone [From [place]] Adverse Reaction (Verified 12/25/18 13:47) Unknown ketorolac [From Toradol] Adverse Reaction (Verified 12/25/18 13:47) Unknown metoprolol [From Toprol XL] Adverse Reaction (Verified 09/10/18 15:27) Unknown DISCONTINUED MEDICATIONS Apixaban [Eliquis] 5 mg PO BID Last Admin: 03/23/19 Esomeprazole Magnesium [Nexium]) 1 tab PO 1200 COUNTS INCLUDE 234 BEDS AT THE [facility] Last Admin: 03/23/19 14:21 Dose: Not Given NEW PRESCRIPTIONS: ZOFRAN 4 MG 1 TABLET BY MOUTH THREE TIMES A DAY PROTONIX 40 MG 1 TABLET BY MOUTH TWICE A DAY BEFORE MEALS CARAFATE 1 GRAM 1 TABLET BY MOUTH ACHS LOVENOX 80 MG SQ ONE INJECTION DAILY FOR FOUR DAYS ULTRAM 50 MG 1 TABLET BY MOUTH EVERY 8 HOURS NEEDED FOR PAIN SMOKING: FORMER SMOKER DISEASE SPECIFIC EDUCATION: GI BLEED ELIQUIS LOVENOX REFERRAL TO GI FOLLOW UP APPOINTMENT NO NSAIDS LAB REVIEW: 03/26/19 12:29 03/26/19 05:04 03/26/19 12:29: Hgb 10.8 L, Hct 31.8 L 03/26/19 05:04: Sodium 136.2, Potassium 4.35, Chloride 105.1, Carbon Dioxide 26.6, Anion Gap 8.85, BUN 24.5 H, Creatinine 1.31 H, Estimated GFR (MDRD) 52.00 , BUN/Creatinine Ratio 18.70, Glucose 108.2 H, Calcium 9.13, Total Bilirubin 0.66, AST 20.4, ALT 13.5, Alkaline Phosphatase 66.0, Total Protein 6.10 L, Albumin 3.61, Globulin 2.49, Albumin/Globulin Ratio 1.44 03/26/19 05:04: WBC 5.60, RBC 3.23 L, Hgb 10.3 L, Hct 30.4 L, MCV 94.1 H, MCH 31.9 H, MCHC 33.9, RDW Coeff of [place] 15.0 H, Plt Count 215, Immature Gran % (Auto ) 0.2, Neut % (Auto) 59.3, Lymph % (Auto) 21.3, [place] % (Auto) 13.0 H, Eos % ( Auto) 5.7, Baso % (Auto) 0.5, Immature Gran # (Auto) 0.0, Neut # (Auto) 3.3, Lymph # (Auto) 1.2, [place] # (Auto) 0.7, Eos # (Auto) 0.3, Baso # (Auto) 0.0 PLAN: DISCHARGE HOME TODAY 03/26/2019 DIET: REGULAR; TOLERATED AVOID SPICY, GREASY FOODS ACTIVITY: UP TOLERATED HAVE LABS DRAWN ON SaturdayMarch PRIOR TO YOUR APPOINTMENT WITH DR. DARNELL. AN OUTPATIENT ORDER IS BEING SENT HOME WITH YOU. FOLLOW UP WITH DR. DARNELL/SHERYL SHAW APRN ON SaturdayMarch AT 1:15 PM. PLEASE CALL TO RESCHEDULE IF UNABLE TO KEEP APPOINTMENT. A REFERRAL FOR HOME HEALTH HAS BEEN SENT TO [facility]. NURSING VISITS FOR RESPIRATORY AND GI ASSESSMENTS, MEDICATION COMPLIANCE, VITAL SIGNS, AND LAB WORK. PLEASE DRAW A CBC WITH DIFF AND A CMP ON SaturdayMarch. PLEASE CALL THOSE RESULTS TO SHERYL SHAW APRN AT HIS OFFICE [phone]. OR DR. DARNELL ON HIS CELL PHONE [phone] IF SHERYL IS NOT IN THE OFFICE. AN APPOINTMENT HAS BEEN SCHEDULED WITH SARAH MORRISON APRN/DR. GONZALES ON MARCH 31, 2019 AT 9:30 AM. OFFICE IS LOCATED AT [address] [place] [address] IN [place], [place] PHONE NUMBER: CODE STATUS: FULL CODE ALERT, ORIENTED TIMES THREE. RAMPART. MR. PFEIFFER AND HIS ARE AGREEABLE WITH DISCHARGE HOME TODAY. MRS. PFEIFFER IS AGREEABLE TO ADMINISTER THE LOVENOX INJECTIONS DAILY FOR THE NEXT FOUR DAYS. MR. PFEIFFER IS INDEPENDENT WITH ALL ACTIVITIES OF DAILY LIVING. HE DOES NOT REQUIRE THE USE OF AN ASSISTIVE DEVICE FOR AMBULATION. HE HAS NOT HAD A BOWEL MOVEMENT TODAY. MR. PFEIFFER REPORTS HIS STOOL YESTERDAY WAS FORMED AND BROWN IN COLOR. MR. PFEIFFER CONTINUES TO C/O CHRONIC NAUSEA WHICH HE REPORTS HAS BEEN GOING ON FOR 3-4 WEEKS. HE AMBULATES TO THE BATHROOM WITHOUT C/O SOA. HIS CHRONIC BACK AND KNEE PAIN SEEMS TO HAVE IMPROVED WITH THE TRAMADOL. APPETITE REMAINS FAIR DUE TO THE CHRONIC NAUSEA. HYDRATION STATUS IS ADEQUATE. SKIN WARM, DRY INTACT. Danilo Darnell M.D. Sheryl Shaw APRN
--- NOTE | 2019-03-27 10:33 | PN ---
03/23/19: Level 5 03/24/19: Intermediate 03/25/19: Intermediate 03/26/19: D as in discharge MTDD
== END 2019-03-26 16:00 | disposition home or self-care (01) | DRG 379 ==
LOC: MEDSURG B 11:11
PROVIDERS: ADMIT Internal Medicine; ATTEND Internal Medicine
DX: K29.71 Gastritis, unspecified, with bleeding (principal); D64.9 Anemia, unspecified; J45.909 Unspecified asthma, uncomplicated; I48.91 Unspecified atrial fibrillation; I10 Essential (primary) hypertension; N18.2 Chronic kidney disease, stage 2 (mild); M54.12 Radiculopathy, cervical region; M15.9 Polyosteoarthritis, unspecified; G62.9 Polyneuropathy, unspecified; R73.9 Hyperglycemia, unspecified; R53.1 Weakness; R06.02 Shortness of breath; R63.0 Anorexia; Z79.01 Long term (current) use of anticoagulants
CPT/HCPCS: 36415; 36430; 80053; 80198; 81001; 82272; 82550; 82803; 84484; 85014; 85018; 85025; 86850; 86900; 86922; 93005; 93010; 94640

== ENCOUNTER 2019-03-30 11:05 | Outpatient (CLI) | END 2019-03-30 11:06 | disposition home or self-care (01) | LOC: LAB 11:05 | PROVIDERS: ATTEND Internal Medicine | DX: D64.9 Anemia, unspecified (principal); K92.2 Gastrointestinal hemorrhage, unspecified | CPT/HCPCS: 36415; 80053; 85025 ==

== ENCOUNTER 2019-04-04 18:39 | Emergency (ER) ==
[2019-04-04 18:43] VITALS: BP 113/72; TEMP 97.3; BMI 24.4
--- NOTE | 2019-04-04 19:08 | ED.PDOC ---
General ED Provider: Dr. DARA GLASGOW Chief Complaint: Nausea/Vomiting Stated Complaint: Nausea, no vomiting - has been going on for a month - is concerned that he is not eating - PT says eats a few bites and then feels nausea - feels like he could get better if he vomited. Time Seen by Physician: 19:01 Mode of Arrival: Wheelchair Information Source: Patient, Family Exam Limitations: No limitations Primary Care Provider: CHRISTOPHER HOBSON Nursing and Triage Documentation Reviewed and Agree: Yes Does patient meet sepsis criteria?: No System Inflammatory Response Syndrome: Not Applicable Sepsis Protocol: For patient's 13 years and over: Temp is 96.8 and below OR 101 and greater Pulse >90 BPM Resp >20/minute Acutely Altered Mental Status Are patient's symptoms suggestive of a new infection, such as: -Pneumonia -Skin, Soft Tissue -Endocarditis -UTI -Bone, Joint Infection -Implantable Device -Acute Abdominal Infection -Wound Infection -Meningitis -Blood Stream Catheter Infection -Unknown Review of Systems - Review Of Systems Constitutional: Reports: Malaise Respiratory: Reports: No symptoms Cardiac: Reports: No symptoms GI: Reports: Nausea, Poor appetite (after a few bites overwhelming nausea - no emesis - thinks would feel better if he could vomit). Denies: Rectal bleeding, Vomiting : Reports: No symptoms All Other Systems: Reviewed and Negative Past Medical History - Past Medical History Previously Healthy: No Endocrine: Reports: None Cardiovascular: Reports: A-Fib Respiratory: Reports: COPD Hematological: Reports: None Gastrointestinal: Reports: GERD Genitourinary: Reports: Other (BPH) Neuro/Psych: Reports: None Musculoskeletal: Reports: None Cancer: Reports: None Other Pertinent Past Medical History: HERNIA X 3, RIGHT HIP REPLACEMENT, GALLBLADDER - Surgical History General Surgical History: Reports: Cholecystectomy, Pacemaker, Orthopedic (c6 fx ), Hernia Repair (x3 ) - Family History Family History: Reports: Unknown - Social History Smoking Status: Former smoker Hx Substance Use: No Alcohol Screening: None - Immunizations Tetanus Shot up to Date: Yes Physical Exam - Physical Exam Appearance: Well-appearing, No pain distress Ill-appearing: None Pain Distress: None Eyes: ISMAEL, Conjunctiva clear ENT: Oropharynx normal Neck: Supple Respiratory: Airway patent, Breath sounds clear, Breath sounds equal, Respirations nonlabored Cardiovascular: RRR, Pulses normal GI/: Soft, Nontender, No masses, Bowel sounds normal Skin: Warm, Dry Neurological: Sensation intact, Motor intact, Alert, Oriented Psychiatric: Affect appropriate, Mood appropriate, Anxious (concerned about what is going on and why he feels nauseated all the time) Physician Notification - Case Discussed Physician Notified: Dr Hobson Time of Notification: 21:20 (No indication for admission; nausea present 4 - 6 weeks, last hospitalization 1 week ago gave no change in nausea.) Critical Care Note - Critical Care Note Total Time (mins): 25 Course - Course Hematology/Chemistry: 04/04/19 19:25 04/04/19 19:25 Orders, Labs, Meds: Lab Review 04/04/19 04/04/19 04/04/19 19:25 19:25 20:03 WBC 5.74 RBC 3.65 L Hgb 11.4 L Hct 34.1 L MCV 93.4 MCH 31.2 H MCHC 33.4 RDW Coeff of [place] 13.8 Plt Count 276 Immature Gran % (Auto) 0.2 Neut % (Auto) 63.0 Lymph % (Auto) 15.9 [place] % (Auto) 15.9 H Eos % (Auto) 4.7 Baso % (Auto) 0.3 Immature Gran # (Auto) 0.0 Neut # (Auto) 3.6 Lymph # (Auto) 0.9 [place] # (Auto) 0.9 Eos # (Auto) 0.3 Baso # (Auto) 0.0 Sodium 132.6 L Potassium 4.05 Chloride 97.9 L Carbon Dioxide 27.8 Anion Gap 10.95 BUN 20.9 H Creatinine 1.15 H Estimated GFR (MDRD) 60.00 BUN/Creatinine Ratio 18.17 Glucose 115.8 H Calcium 9.23 Total Bilirubin 0.69 AST 26.0 ALT 24.1 Alkaline Phosphatase 75.0 Troponin I < 0.012 Total Protein 6.69 Albumin 4.03 Globulin 2.66 Albumin/Globulin Ratio 1.51 Urine Color Yellow Urine Clarity Clear Urine pH 7.0 Ur Specific [place] 1.020 Urine Protein 2+ Urine Glucose (UA) Negative Urine Ketones Negative Urine Blood Negative Urine Nitrite Negative Urine Bilirubin Negative Urine Urobilinogen 0.2 Ur Leukocyte Esterase Negative Urine Microscopic WBC 0-2 Ur Squamous Epith Cells Not present Urine Mucus 1+ Orders Category Date Time Status IV [ED IV/MEDIPORT/POWERPORT] .ONCE EMERGENCY 08/31/19 19:20 Active CBC W/ AUTO DIFF Stat LAB 04/04/19 19:25 Completed COMPREHENSIVE METABOLIC PANEL Stat LAB 04/04/19 19:25 Completed TROPONIN I Stat LAB 04/04/19 19:25 Completed URINALYSIS C & S IF INDICATED Stat LAB 04/04/19 20:03 Completed 0.9 % Sodium Chloride [Saline Flush] MEDS 04/04/19 19:20 Discontinued 1 syr IVF PRN PRN Promethazine HCl [Phenergan 25 mg/ml Vial] MEDS 04/04/19 21:36 Discontinued 25 mg .ROUTE .STK-MED ONE Promethazine HCl [Phenergan 25 mg/ml Vial] 25 mg MEDS 04/04/19 21:32 Discontinued 0.9 % Sodium Chloride [Sodium Chloride] 50 ml IV ONCE Medications Discontinued Medications Generic Name Dose Route Start Last Admin Trade Name Freq PRN Reason Stop Dose Admin Promethazine HCl 25 mg/ Sodium 51 mls @ 75 mls/hr 04/04/19 21:32 04/04/19 21: 43 Chloride IV 04/04/19 22:12 Not Given ONCE STA Sodium Chloride 1 syr 04/04/19 19:20 Saline Flush IVF PRN PRN To flush IV Vital Signs: Temp Pulse Resp BP Pulse Ox 04/04/19 18:39 97.3 F L 72 18 113/72 95 Departure - Departure Time of Disposition: 21:27 Disposition: HOME SELF-CARE Discharge Problem: Nausea, Nausea Condition: Stable Pt referred to PMD for follow-up: Yes (Call for appointment) IPMP verified?: No (N/A) Additional Instructions: Use phenergan as prescribed; follow up with Dr. Hobson next week - call Saturday AM to discuss how you are doing and to make an appointment. Return to ER if running a fever 101 or higher or vomiting (not nausea alone) continuously. Phenergan is ordered by prescription which can be filled tomorrow in [place]. Allergies/Adverse Reactions: Allergies morphine Allergy (Severe, Verified 04/04/19 18:50) "Retricts breathing" alprazolam [From Xanax] Adverse Reaction (Intermediate, Verified 04/04/19 18:50) hallucinations Hallucinations aspirin Adverse Reaction (Mild, Verified 04/04/19 18:50) Abdominal Pain Sulfa (Sulfonamide Antibiotics) Adverse Reaction (Unknown, Verified 04/04/19 18: 50) Unknown acetaminophen [From [place]] Adverse Reaction (Verified 04/04/19 18:50) Unknown celecoxib [From Celebrex] Adverse Reaction (Verified 04/04/19 18:50) Unknown hydrocodone [From [place]] Adverse Reaction (Verified 04/04/19 18:50) Unknown ketorolac [From Toradol] Adverse Reaction (Verified 04/04/19 18:50) Unknown metoprolol [From Toprol XL] Adverse Reaction (Verified 04/04/19 18:50) Unknown Home Medications: Ambulatory Orders Tamsulosin HCl [Flomax] 1 tab PO DAILY 08/07/13 Theophylline Anhydrous [Theophylline] 1 tab PO DAILY 08/07/13 Albuterol Sulfate [Proair Hfa] 2 puff IH Q4-6H PRN 03/20/16 Budesonide/Formoterol Fumarate [Symbicort 160-4.5 Mcg Inhaler] 2 puff INH BID PRN 08/14/16 Sotalol HCl [Sotalol] 80 mg PO BID 09/29/17 Diltiazem HCl [Cardizem] 60 mg PO BID 09/10/18 Ipratropium/Albuterol Neb [Duoneb] 1 vial NEB RTBID 12/25/18 Losartan Potassium [Cozaar] 50 mg PO BID 12/25/18 Enoxaparin Sodium [Lovenox] 80 mg SUBCUT DAILY syr 03/26/19 Ondansetron HCl [Zofran] 4 mg PO TID #1 tablet 03/26/19 Pantoprazole Sodium [Protonix] 40 mg PO BIDAC tablet. 03/26/19 Sucralfate [Carafate] 1 gm PO ACHS #1 tablet 03/26/19 Tramadol HCl [Ultram] 50 mg PO Q8HR PRN tablet 03/26/19
[2019-04-04] MEDS ORDERED: PHENERGAN 25 MG/ML VIAL 25 MG in SODIUM CHLORIDE 50 ML IV STA (21:32)
[2019-04-04] MEDS ORDERED: PHENERGAN 25 MG/ML VIAL ONE (21:36)
== END 2019-04-04 21:53 | disposition home or self-care (01) ==
LOC: ED 18:39
DX: R11.0 Nausea (principal); R53.83 Other fatigue; Z79.899 Other long term (current) drug therapy; Z95.0 Presence of cardiac pacemaker
CPT/HCPCS: 36415; 80053; 81001; 84484; 85025; 99283

== ENCOUNTER 2019-04-07 08:04 | Outpatient (CLI) | END 2019-04-07 08:05 | disposition home or self-care (01) | LOC: LAB 08:04 → EEVIPCON 08:04 → LAB 08:05 | PROVIDERS: ATTEND Internal Medicine | DX: D64.9 Anemia, unspecified (principal) | CPT/HCPCS: 36415; 80053; 85025 ==